=== PATIENT | male | born 1945 | race Two or more races ===

== ENCOUNTER 2019-03-09 00:36 | Emergency (ER) | payer MEDICARE, MEDICAID ==
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
[2019-03-09] MEDS ORDERED: Lisinopril TAB* 10 MG PO ONE (07:05)
--- NOTE | 2019-03-09 07:11 | ED ---
Progress - Progress Note Progress Note: This patient was signed out from Dr. Haynes to Dr. Barnes upon shift change at 07: 00 03/09/19 on a mental health hold pending more information from the patient's son. Discussed case with celeste Britt, who has cleared the patient for discharge. Dx: adjustment disorder. - Consult/PCP Time Called: 01:09 Re-Evaluation - Re-Evaluation First Eval Re-Evaluation Time: 01:07 Comment: Patient was medically cleared for MHE. Course/Dx - Course Course Of Treatment: This patient was signed out from Dr. Haynes to Dr. Barnes upon shift change at 07:00 03/09/19 on a mental health hold pending more information from the patient's son. Discussed case with celeste Britt, who has cleared the patient for discharge. Dx: adjustment disorder. - Diagnoses Provider Diagnoses: Adjustment disorder - Provider Notifications Discussed Care Of Patient With: Juan J Long Time Discussed With Above Provider: 09:06 Instructed by Provider To: Other - Discussed case with celeste Britt, who has cleared the patient for discharge. Dx: adjustment disorder. Discharge - Sign-Out/Discharge Documenting (check all that apply): Patient Departure - DC, Receiving Sign-Out Receiving patient FROM: Oleksandr Haynes Patient Received Moderate/Deep Sedation with Procedure: No - Discharge Plan Condition: Stable Disposition: HOME - Billing Disposition and Condition Condition: STABLE Disposition: Home - Attestation Statements Document Initiated by Scribe: Yes Documenting Scribe: Lawrence Bowens Provider For Whom Scribe is Documenting (Include Credential): Bri Barnes MD Scribe Attestation: ILawrence scribed for Bri Barnes MD on 03/09/19 at 0919. Scribe Documentation Reviewed: Yes Provider Attestation: The documentation as recorded by the Lawrence ahumada accurately reflects the service I personally performed and the decisions made by me, Kamilah Barnes MD Status of Scribe Document: Viewed
[2019-03-09 09:41] VITALS: BP 184/102
== END 2019-03-09 09:40 | disposition home or self-care (01) ==
LOC: ED 00:36
DX: F43.20 Adjustment disorder, unspecified (principal); I10 Essential (primary) hypertension; F17.200 Nicotine dependence, unspecified, uncomplicated
CPT/HCPCS: 99284

== ENCOUNTER 2019-07-15 08:40 | Emergency (ER) | payer MEDICARE, MEDICAID ==
--- OUTSIDE RECORDS SUMMARY | 2019-07-15 08:51 | XMS REPORT | Summary of Care ---
:1945 Author Organization [facility] Address [address] [address] Care Team Providers Name Role Phone Kimberly Juarez MD Primary Care Provider Reason for Visit Auth/Cert Status Reason Specialty Diagnoses / Procedures Referred By Contact Referred To Contact Encounter Details Date Type Department Care Team Description 06/04/2019 Hospital Encounter [facility] REC[facility]ERY Ramos Spann Short Procedure [address] [place] [address] [address] [phone] [place] [address] [phone] Allergies Active Allergy Reactions Severity Noted Date Comments Aspirin 12/07/2008 Rectal Bleed documented as of this encounter (statuses as of 06/05/2019) Medications Medication Sig Dispensed Refills Start Date End Date Status MULTIVITAMINS PO Take by mouth. 0 Active polyethylene glycol Take 17 g by 3 Bottle 1 06/17/2018 Active (MIRALAX) Oral mouth DAILY AT Powder 1400. tramadol (ULTRAM) 50 TAKE 1 TABLET BY 60 Tab 0 09/15/2018 Active MG Oral MOUTH EVERY 8 TabIndications: HOURS NEEDED Other chronic pain FOR PAIN (MAX 3 TABS DAILY) B Complex Vitamins Take by mouth 0 Active (B-COMPLEX/B-12) DAILY. Oral Tab lisinopril Take 1 Tab by 30 Tab 0 11/26/2018 Active (PRINIVIL, ZESTRIL) mouth DAILY. 40 MG Oral Tab Probiotic Product Take by mouth 0 Active (PROBIOTIC ADVANCED DAILY. PO) Nitroglycerin Place 1 Appl per 1 Tube 0 12/04/2018 Active (RECTIV) 0.4 % rectum EVERY Rectal Ointment TWELVE HOURS NEEDED (anal pain). hydrocortisone Place 1 30 Suppository 1 12/04/2018 Active (ANUSOL-HC) 25 MG Suppository per Rectal Suppos rectum EVERY TWELVE HOURS. hydrocortisone 1 Appl by 1 Tube 1 12/08/2018 Active (HYTONE) 2.5 % Apply Topical route externally Cream THREE TIMES DAILY NEEDED (pain). metoprolol TAKE 1 TABLET BY 60 Tab 5 03/10/2019 Active (LOPRESSOR) 100 MG MOUTH TWICE Oral Tab DAILY magnesium citrate Take by mouth. 0 Active Oral Solution Magnesium Hydroxide Take by mouth 0 Active (MILK OF MAGNESIA NEEDED. PO) documented as of this encounter (statuses as of 06/05/2019) Active Problems Problem Noted Date Hyperplastic colonic polyp 10/06/2018 Abdominal mass 03/14/2017 Benign hypertension 03/14/2017 Lower GI bleed 03/14/2017 Right knee pain 08/14/2016 Illiteracy 06/06/2014 B12 deficiency 07/08/2012 Hyperlipidemia 12/07/2008 Osteoarthritis 12/07/2008 Diverticulosis 12/07/2008 Overview: S/P colonoscopy, 2005. Low back pain 12/07/2008 HTN (hypertension) AR (aortic regurgitation) Overview: mild to moderate documented as of this encounter (statuses as of 06/05/2019) Immunizations Name Administration Dates Next Due Influenza (IM) Preservative Free 06/07/2016, 07/01/2013, 08/31/2012, 06/24/2011, 07/26/2009 Influenza Vaccine High Dose 06/01/2019, 06/03/2018, 09/08/2015, 07/06/2014 PNEUMOCOCCAL POLYSACCHARIDE VACCINE 05/03/2011 Pneumococcal Conjugate(13 Valent) 03/22/2015 TDAP Vaccine 03/22/2015 Vitamin B12 (1,000 mcg) 03/04/2019, 11/11/2016, 10/11/2016, 09/09/2016, 08/09/2016, 07/09/2016, 06/07/2016, 05/08/2016, 04/10/2016, 03/11/2016, 02/10/2016, 01/11/2016, 12/11/2015, 11/10/2015, 10/10/2015, 09/08/2015, 08/09/2015, 07/10/2015, 06/09/2015, 04/21/2015, 03/09/2015, 02/07/2015, 01/05/2015, 12/05/2014, 11/07/2014, 10/07/2014, 09/07/2014, 08/08/2014, 07/06/2014, 06/06/2014, 05/09/2014, 03/31/2014, 03/03/2014, 01/31/2014, 12/31/2013, 12/01/2013, 11/01/2013, 10/04/2013, 09/01/2013, 08/02/2013, 07/01/2013, 06/01/2013, 04/30/2013, 03/31/2013, 03/01/2013, 01/29/2013, 12/31/2012, 11/30/2012, 11/02/2012, 10/01/2012, 08/31/2012, 07/30/2012, 07/06/2012, 06/04/2012, 04/30/2012, 01/10/2012 ZOSTER (ZOSTAVAX) VACCINE 04/30/2017 documented as of this encounter Social History Tobacco Use Types Packs/Day Years Used Date Former Smoker Cigarettes, Cigars 1 31 Smokeless Tobacco: Never Used Comments: 1 pack q 2 weeks Alcohol Use Drinks/Week oz/Week Comments Yes 0 Standard drinks or equivalent 0.0 Occasional Sex Assigned at Date Recorded Not on file Job Start Date Occupation Industry Not on file Not on file Not on file Travel History Travel Start Travel End No recent travel history available. documented as of this encounter Last Filed Vital Signs Vital Sign Reading Time Taken Comments Blood Pressure 170/98 06/04/2019 11:10 AM EDT Pulse 71 06/04/2019 11:10 AM EDT Temperature 36.4 06/04/2019 11:15 AM EDT C (97.6 F) Respiratory Rate 12 06/04/2019 10:50 AM EDT Oxygen Saturation 99% 06/04/2019 11:10 AM EDT Inhaled Oxygen Concentration - - Weight 62.7 kg (138 lb 4.8 oz) 06/04/2019 9:04 AM EDT Height 167.6 cm (5' 6") 06/04/2019 9:04 AM EDT Body Mass Index 22.32 06/04/2019 9:04 AM EDT documented in this encounter Plan of Treatment Date Type Specialty Care Team Description 06/07/2019 Nurse/Clinical Support Internal Medicine Name Type Priority Associated Diagnoses Date/Time NON-GYNECOLOGIC CYTOLOGY Lab Routine Pancreatic cyst 06/04/2019 10:28 AM EDT PANCREATIC CYST FLUID Lab STAT Pancreatic cyst 06/04/2019 10:34 AM EDT PANEL CEA, PANCREATIC CYST FLUID Lab STAT Pancreatic cyst 06/04/2019 10:34 AM EDT Name Type Priority Associated Order Schedule Diagnoses EUS Diagnostic/Surgical Routine TOMORROW - GENERAL Procedures USE for 1 Occurrences starting 06/04/2019 until 06/04/2019 NON-GYNECOLOGIC Lab Routine Pancreatic cyst Release Upon CYTOLOGY Ordering for 1 Occurrences starting 06/04/2019, 1 completed PANCREATIC CYST Lab STAT Pancreatic cyst Release Upon FLUID PANEL Ordering for 1 Occurrences starting 06/04/2019 Health Maintenance Due Date Last Done Comments LUNG CANCER SCREENING 2001 ZOSTER IMMUNIZATION SERIES 06/25/2017 04/30/2017 (2 of 3) LIPID DISORDER SCREENING 03/06/2020 03/06/2019, 10/01/2017, 08/12/2016, Additional history exists DEPRESSION SCREENING 03/26/2020 03/26/2019, 03/26/2019 FALL RISK ASSESSMENT 03/26/2020 03/26/2019, 03/26/2019 MEDICARE ANNUAL WELLNESS 03/26/2020 03/26/2019, 03/22/2015, VISIT 03/22/2015, Additional history exists COLONOSCOPY SCREENING 07/31/2022 07/31/2017, 06/19/2017, 10/18/2013, Additional history exists PNEUMOCOCCAL 65+YRS Completed 03/22/2015, 05/03/2011 AAA SCREENING/SURVEILLANCE Completed 03/14/2017, 03/12/2017 HIV SCREENING Completed 03/06/2019 INFLUENZA VACCINE Completed 06/01/2019, 06/03/2018, 06/07/2016, Additional history exists HPV IMMUNIZATION SERIES Aged Out No longer eligible based on patient's age to complete this topic MENINGOCOCCAL VACCINE IMM Aged Out No longer eligible based on patient's age to complete this topic documented as of this encounter Goals Goal Patient Goal Associated Recent Patient-Stated? Author Type Problems Progress Blood Pressure Blood Pressure HTN 170/98 No Larry, < 140/90 (hypertension) (06/04/2019 Kimberly, 11:10 AM EDT) Note: Hypertension Care Plan Based on the patient's clinical history and according to JNC 8 guidelines target blood pressure goal is less than 150/90. Based on the patient's last blood pressure of BP: 146/84 mmHg the patient is at at goal. As your provider, it is important that I advise you regarding: your current medications and help you with any challenges you may face taking your medications as directed (ex. instructions, cost, side effects, and interactions). Important lifestyle changes: dietary sodium reduction your clinical goals and how you can achieve success: exercise plan medication management: adjusted medications as appropriate patient education/self-management tools provided: Yes To successfully manage my Hypertension I will: monitor my blood pressure daily, understanding that my goal is less than 140/ 90 per my healthcare provider's recommendation. I will schedule an appointment with my provider if consistent abnormal readings greater than 160/100. take medications every day as prescribed by my healthcare provider and if unable to take them I will discuss with my provider. monitor for symptoms of chest pain, chest tightness/pressure, irregular heartbeat, persistent dizziness, radiating arm pain, and neck or jaw pain. If any of these symptoms are noticed I will seek medical attention immediately by calling 911 exercise/walk 30 minutes 5 day(s) per week. If I experience chest pain, chest tightness, or shortness of breath, I will seek medical attention immediately. follow a diet rich in fruits, vegetables, and low-fat dairy products with reduced content of saturated & total fat. I will reduce my sodium intake daily. An example is the DASH diet. To obtain more information please refer to the DASH Eating Plan listed in Educational Resources. record my blood pressure results. [employer] is safe and secure way for you to do this in your medical record online. limit alcohol consumption. For men two drinks per day and women one drink per day. if currently smoking, will discuss how to quit smoking with my healthcare provider and work towards quitting. Educational Resources: National Heart, Lung, & Blood [place] http://nhlbi.nih.gov/hbp/index.html The DASH Diet Eating Plan http://www.nhlbi.nih.gov/health/health-topics/ topics/dash/ Academy of Nutrition & DIetetics http://eatright.org National Smoking Cessation Site http://smokefree.gov Blood Pressure < Blood Pressure 170/98 (06/04/2019 No Kimberly Juarez, 150/90 11:10 AM EDT) Note: This is an individualized treatment (blood pressure) goal for Adrián Kumar: Displayed above (on the left) is your goal for blood pressure control. Your most recent blood pressure is also shown above, on the right. You should try to achieve blood pressures that are lower than your goal listed above (on the left). Take all prescribed medications as Self-management Kimberly Read MD directed Note: This is an individualized self-management goal for Adrián Kumar: Please take all prescribed medications as directed. 1. Do not skip doses. If you cannot afford your medications, talk with your doctor. 2. Use a pill reminder system such as a pill box if needed. Your pharmacist can help you with this. 3. Contact your Pharmacy 5 days before your medication runs out. If you cannot take your medications for any reasons, talk with your doctor. 4. Please bring all of your medication bottles and inhalers (or a list of all your medications/inhalers) with you to every visit. Potential barriers to meeting all of your care plan goals will continue to be addressed on an ongoing basis. documented as of this encounter Procedures Procedure Name Priority Date/Time Associated Comments Diagnosis AMYLASE, FLUID STAT 06/04/2019 10:34 Pancreatic cyst Results for AM EDT this procedure are in the results section. UPPER GI ENDOSCOPY Routine 06/04/2019 9:50 Results for REPORT AM EDT this procedure are in the results section. ENDOSCOPY UPPER GI Planned Trip to 06/04/2019 9:49 OR AM EDT ENDOSCOPIC ULTRASOUND Planned Trip to 06/04/2019 9:49 OR AM EDT EUS Routine 06/04/2019 9:41 Results for AM EDT this procedure are in the results section. CBC WITH DIFFERENTIAL STAT 06/04/2019 9:13 Results for AM EDT this procedure are in the results section. PROTHROMBIN TIME STAT 06/04/2019 9:13 Results for AM EDT this procedure are in the results section. PARTIAL THROMBOPLASTIN STAT 06/04/2019 9:13 Results for TIME AM EDT this procedure are in the results section. US TRANSESOPHAGEAL Routine 06/04/2019 8:41 Results for ENDOSCOPIC AM EDT this procedure are in the results section. documented in this encounter Results AMYLASE, FLUID (06/04/2019 10:34 AM EDT) Fluid Amylase 66 No Established [facility] Comment: Reference Range [facility] Available U/L This test was developed and its performance characteristics determined by [facility] who is solely responsible for the content and accuracy. The precision and accuracy has been determined to be equivalent to the accuracy and precision of the FDA approved serum and plasma testing. This test has not been cleared or approved by the US Food and Drug Administration. The FDA barber s not require this test to go through premarket FDA review. This test is used for clinical purposes. It should not be regarded as investigational or for research. This laboratory is certified under the Clinical Laboratory Improvement Amendments (CLIA) as qualified to perform high complexity clinical laboratory testing. Testing Methodology: Two-point rate Specimen Body fluid, unsp Narrative Performed At No Normal Ranges Available [facility] Provider must interpret results based on clinical situation. Performing Organization Address City/State/Zipcode Phone Number [facility] [address] [facility] [place] [address] [address] UPPER GI ENDOSCOPY REPORT (06/04/2019 9:50 AM EDT) Upper GI endoscopy [facility]ATION __ Patient Name: Adrián Kumar Procedure Date: 06/04/2019 9:50 AM Date of : 1945 Admit Type: Outpatient Age: 74 Room: OR Gender: Male Note Status: Finalized Attending MD: RAMOS SPANN JR, MD Instrument Name: [id number] GIF H180 __ Procedure: Upper GI endoscopy Indications: Epigastric abdominal pain Providers: RAMOS SPANN JR, MD, Inocencia Mccollum RN (Nurse), Columba Santos RN (Nurse) Referring MD: KIMBERLY JUAREZ MD (Referring MD) Medicines: See the Anesthesia note for documentation of the administered medications Complications: No immediate complications. __ Procedure: The patient's current medications and allergies were reviewed and recorded in the nurses notes. The patient was made aware of the risk of the procedure which can include: bleeding, infection, perforation, an adverse reaction to sedation, and a risk of missed lesions, among others. The patient appeared to understand. An opportunity for questions was provided, and an informed consent form was signed. The scope was passed under direct vision. Throughout the procedure, the patient's blood pressure, pulse EKG, and oxygen saturations were monitored continuously. The Endoscope was introduced through the mouth, and advanced to the second part of duodenum. The Z-line was located at: The upper GI endoscopy was accomplished without difficulty. The patient tolerated the procedure well. Findings: The esophagus was normal. The stomach was normal. The examined duodenum was normal. Impression: - Normal esophagus. - Normal stomach. - Normal examined duodenum. - No specimens collected. Recommendation: - Continue present medications. - Perform an upper endoscopic ultrasound (UEUS) today. - Discharge patient to home. Procedure Code(s): --- Professional --- 54736, 51, Esophagogastroduodenoscopy, flexible, transoral; diagnostic, including collection of specimen(s) by brushing or washing, when performed (separate procedure) Diagnosis Code(s): --- Professional --- R10.13, Epigastric pain CPT copyright 2017 [place] [employer]. All rights reserved. The codes documented in this report are preliminary and upon doctor of chiropractic review may be revised to meet current compliance requirements. RAMOS SPANN JR, MD 06/04/2019 10:09:28 AM This report has been signed electronically. Number of Addenda: 0 Note Initiated On: 06/04/2019 9:50 AM Specimen Performing Organization Address City/State/Zipcode Phone Number PROVRAMON EUS (06/04/2019 9:41 AM EDT) Pathologist [facility]ATION __ Patient Name: Adrián Kumar Procedure Date: 06/04/2019 9:41 AM Date of : 1945 Admit Type: Outpatient Age: 74 Room: 16 Gender: Male Note Status: Finalized Attending MD: RAMOS SPANN JR, MD Instrument Name: 1897 UE 160-AL5 EUS RADIAL,0748 UC 140P-AL5 LINEAR __ Procedure: Upper EUS Indications: Pancreatic cyst Providers: RAMOS SPANN JR, MD, Inocencia Mccollum RN (Nurse), Columba Santos RN (Nurse) Referring MD: KIMBERLY JUAREZ MD (Referring MD) Medicines: See the Anesthesia note for documentation of the administered medications Complications: No immediate complications. __ Procedure: After obtaining informed consent, the endoscope was passed under direct vision. Throughout the procedure, the patient's blood pressure, pulse, and oxygen saturations were monitored continuously. The Endosonoscope was introduced through the mouth, and advanced to the second part of duodenum. The Endosonoscope was introduced through the mouth, and advanced to the second part of duodenum. The upper EUS was accomplished without difficulty. The patient tolerated the procedure well. Findings: ENDOSONOGRAPHIC FINDING: : An anechoic lesion suggestive of a cyst was identified in the pancreatic tail. The lesion measured 21 mm by 23 mm in maximal cross-sectional diameter. There was a single compartment without septae. The outer wall of the lesion was not seen. There was no associated mass. There was no internal debris within the fluid-filled cavity. Diagnostic needle aspiration for fluid was performed. Color Doppler imaging was utilized prior to needle puncture to confirm a lack of significant vascular structures within the needle path. One pass was made with the 22 gauge needle using a transgastric approach. A stylet was used. The amount of fluid collected was 5 mL. The fluid was clear, yellow and thin. Sample(s) were sent for amylase concentration, cytology and CEA. There was no sign of significant endosonographic abnormality in the pancreatic head and pancreatic body. No masses. There was no sign of significant endosonographic abnormality in the left lobe of the liver and in the right lobe of the liver. There was no sign of significant endosonographic abnormality in the common bile duct and in the gallbladder body. The maximum diameter of the ducts were 5 mm. No stones were identified. No lymphadenopathy seen. Impression: - A cystic lesion was seen in the pancreatic tail. Fine needle aspiration for fluid performed. - There was no sign of significant pathology in the pancreatic head and pancreatic body. - There was no evidence of significant pathology in the left lobe of the liver and in the right lobe of the liver. - There was no sign of significant pathology in the common bile duct and in the gallbladder body. Recommendation: - Continue present medications. - Await cytology results and await tumor markers. - Perform CT scan (computed tomography) of the abdomen with contrast in 1 year. - Discharge patient to home. Procedure Code(s): --- Professional --- 72911, Esophagogastroduodenoscopy, flexible, transoral; with transendoscopic ultrasound-guided intramural or transmural fine needle aspiration/biopsy(s) (includes endoscopic ultrasound examination of the esophagus, stomach, and either the duodenum or a surgically altered stomach where the jejunum is examined distal to the anastomosis) Diagnosis Code(s): --- Professional --- K86.2, Cyst of pancreas CPT copyright 2017 [place] [employer]. All rights reserved. The codes documented in this report are preliminary and upon doctor of chiropractic review may be revised to meet current compliance requirements. RAMOS SPANN JR, MD 06/04/2019 10:33:37 AM This report has been signed electronically. Number of Addenda: 0 Note Initiated On: 06/04/2019 9:41 AM Specimen Performing Organization Address [facility] Phone Number [facility] PARTIAL THROMBOPLASTIN TIME (06/04/2019 9:13 AM EDT) PTT 31.0 22.8 - 34.7 SEC [facility] Specimen Blood Performing Organization Address [facility] Phone Number [facility] [address] [place] [address] PROTHROMBIN TIME (06/04/2019 9:13 AM EDT) INR 1.17 (H) 0.79 - 1.15 [facility] Comment: Ratio [facility] INR Therapeutic Range: 2.0 - 3.5 Protime 14.7 (H) 11.4 - 14.3 sec [facility] Specimen Blood Performing Organization Address [facility] Phone Number [facility] [address] [place] [address] [phone] CBC WITH DIFFERENTIAL (06/04/2019 9:13 AM EDT) WBC Count 2.41 (L) 4.23 - 9.07 K/uL [facility] RBC Count 4.00 (L) 4.30 - 5.89 M/UL [facility] Hemoglobin 13.8 13.7 - 17.5 g/dL [facility] Hematocrit 39.5 (L) 40.1 - 51.0 % [facility] MCV 98.8 (H) 79.0 - 92.2 FL [facility] MCH 34.5 (H) 25.7 - 32.2 PG [facility] MCHC 34.9 32.3 - 36.5 g/dL [facility] Platelet Count 216 163 - 337 K/uL [facility] MPV 9.8 9.4 - 12.4 FL [facility] RDW 13.8 11.6 - 14.4 % [facility] Neutrophil % 45.7 34.0 - 67.9 % [facility] Lymphocyte % 30.7 21.8 - 53.1 % [facility] Monocyte % 18.7 (H) 5.3 - 12.2 % [facility] Eosinophil % 3.7 0.8 - 7.0 % [facility] Basophil % 1.2 0.2 - 1.2 % [facility] nRBC % 0.0 0.0 - 0.2 % [facility] Neutrophil # 1.10 (L) 1.78 - 5.38 K/UL [facility] Lymphocyte # 0.74 (L) 1.32 - 3.57 K/UL [facility] Monocyte # 0.45 0.30 - 0.82 K/UL [facility] Eosinophil # 0.09 0.04 - 0.54 K/UL [facility] Basophil # 0.03 0.01 - 0.08 K/UL [facility] Immature Gran % 0.0 0.0 - 0.4 % [facility] Immature Gran # 0.00 0.00 - 0.03 K/uL [facility] NRBC # 0.00 0.00 - 0.12 K/uL [facility] Specimen Blood Performing Organization Address City/[facility]/Zipcode Phone Number [facility] [address] [place] [address] [phone] TRANSESOPHAGEAL ENDOSCOPIC (06/04/2019 8:41 AM EDT) Specimen Narrative Performed At Please see performing physicians notes for results of this exam. [facility] [address] POCT Performing Organization Address [facility] Cent[facility]ode Phone Number [facility] [address] [address] documented in this encounter Visit Diagnoses Diagnosis Pancreatic cyst Cyst and pseudocyst of pancreas documented in this encounter Administered Medications Medication Order MAR Action Action Date Dose Rate Site diphenhydrAMINE (BENADRYL) injection 12.5 mg 12.5 mg, Intravenous Push, Q4 HRS PRN, Starting Fri06/04/19 at 1041, Until Fri06/04/19 at 1329, Pruritis/Itching - 2nd line if no relief 4 hours after administration of 1st line agent, May give if Nubain ineffective, 4 Recovery FentaNYL (PF) (SUBLIMAZE) injection (PF) 25 mcg 25 mcg, Intravenous Push, PRU Q5MIN PRN, Starting Fri06/04/19 at 1041, Until Fri06/04/19 at 1329, Mild Pain (pain scale 1-3) - IV - 1st line - if immediate effect required or patient cannot tolerate PO, 4 Recovery FentaNYL (PF) (SUBLIMAZE) injection (PF) 50 mcg 50 mcg, Intravenous Push, PRU Q5MIN PRN, Starting Fri06/04/19 at 1041, Until Fri06/04/19 at 1329, Moderate Pain (pain scale 4-6) - IV - 1st line - if immediate effect required or patient cannot tolerate PO, Severe Pain (pain scale 7-10) - IV - 1st line - if immediate effect required or patient cannot tolerate PO, 4 Recovery haloperidol (HALDOL) injection 0.65 mg 0.65 mg, Intravenous Push, PRU X1 PRN, 1 dose, Starting Fri06/04/19 at 1041, Until Fri06/04/19 at 1329, Nausea/Vomiting - IV - 3rd line - if immediate effect required or patient cannot tolerate PO and no relief 1 hour after administration of 2nd line agent, 4 Recovery normal saline IV New Bag 06/04/2019 9:59 AM EDT Intravenous, at 15 mL/hr, CONTINUOUS, Starting Fri06/04/19 at 0850, Until Fri06/04/19 at 1329 ondansetron (ZOFRAN) injection 4 mg 4 mg, Intravenous Push, PRU X1 PRN, 1 dose, Starting Fri06/04/19 at 1041, Until Fri06/04/19 at 1329, Nausea/Vomiting - IV - 1st line - If immediate effect required or patient cannot tolerate PO, 4 Recovery prochlorperazine (COMPAZINE) injection 2.5 mg 2.5 mg, Intravenous Push, PRU PRN, 2 doses, Starting Fri06/04/19 at 1041, Until Fri06/04/19 at 1329, Nausea/Vomiting - IV - 2nd line - if immediate effect required or patient cannot tolerate PO and no relief 1 hours after administration of 1st line agent, 4 Recovery documented in this encounter Insurance Payer Benefit Plan / Subscriber ID Effective Dates Phone Address Type Group AETNA MEDICARE AETNA MEDICARE xxxxxxxx 2019-[place] [employer] [place] [place]([id number] ) [place] xxxxxxxx Effective for Medicaid [place] all dates Guarantor Name Account Type Relation to Date of Phone Billing Address Patient Charlie Personal/Famil 1945 [address] Kumar (Home) [address] [phone] [place], [place] (Work) [address] documented as of this encounter Advance Directives Type Date 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 yes Order discussed with: Patient I discussed all options and patient/surrogate requested and agreed to: Full Code
--- OUTSIDE RECORDS SUMMARY | 2019-07-15 08:51 | XMS REPORT | Summary of Care ---
:1945 Author Organization [facility] Address [address] [address] Care Team Providers Name Role Phone RobertlauraKimberly Primary Care Provider Reason for Visit Auth/Cert Status Reason Specialty Diagnoses / Procedures Referred By Contact Referred To Contact Encounter Details Date Type Department Care Team Description 07/01/2019 Hospital Encounter [facility] Ramos Rojas Short Procedure [address] [place] [address] [address] [phone] [place] [address] [phone] Allergies Active Allergy Reactions Severity Noted Date Comments Aspirin 12/07/2008 Rectal Bleed documented as of this encounter (statuses as of 07/02/2019) Medications Medication Sig Dispensed Refills Start Date [...] 0 Active (MILK OF MAGNESIA NEEDED. PO) Sennosides (SENNA) Take 1 Cap by 0 Active 8.6 MG Oral Cap mouth EVERY BEDTIME NEEDED (constipation). Hydrocortisone Place 1 Strip 30 Tube 0 06/15/2019 Active Lui-Pramoxine 2.5-1 per rectum TWO % Rectal Cream TIMES DAILY NEEDED (rectal pain). documented as of this encounter (statuses as of 07/02/2019) Active Problems Problem Noted Date Hyperplastic colonic polyp 10/06/2018 Abdominal mass 03/14/2017 Benign hypertension 03/14/2017 Lower GI bleed 03/14/2017 Right knee pain 08/14/2016 Illiteracy 06/06/2014 B12 deficiency 07/08/2012 Hyperlipidemia 12/07/2008 Osteoarthritis 12/07/2008 Diverticulosis 12/07/2008 Overview: S/P colonoscopy, 2005. Low back pain 12/07/2008 HTN (hypertension) AR (aortic regurgitation) Overview: mild to moderate documented as of this encounter (statuses as of 07/02/2019) Immunizations Name Administration Dates Next Due Influenza [...] Sign Reading Time Taken Comments Blood Pressure 161/84 07/01/2019 11:00 AM EDT Pulse 66 07/01/2019 11:00 AM EDT Temperature 36.9 07/01/2019 10:21 AM EDT C (98.4 F) Respiratory Rate 18 07/01/2019 11:00 AM EDT Oxygen Saturation 98% 07/01/2019 11:00 AM EDT Inhaled Oxygen Concentration - - Weight 59.9 kg (132 lb) 07/01/2019 8:55 AM EDT Height 167.6 cm (5' 6") 07/01/2019 8:55 AM EDT Body Mass Index 21.31 07/01/2019 8:55 AM EDT documented in this encounter Plan of Treatment Date Type Specialty Care Team Description 07/06/2019 Office Visit Gastroenterology Columba Tirado, DEMOGRAPHER [address] [place] [address] [phone] Name Type Priority Associated Diagnoses Order Schedule COLONOSCOPY Diagnostic/Surgical Routine TOMORROW - GENERAL USE Procedures for 1 Occurrences starting 07/01/2019 until 07/01/2019 Health Maintenance Due Date Last Done Comments LUNG CANCER SCREENING 2001 ZOSTER IMMUNIZATION SERIES 06/25/2017 04/30/2017 (2 of 3) LIPID DISORDER SCREENING 03/06/2020 03/06/2019, 10/01/2017, 08/12/2016, Additional history exists DEPRESSION SCREENING 03/26/2020 03/26/2019, 03/26/2019 FALL RISK ASSESSMENT 03/26/2020 03/26/2019, 03/26/2019 MEDICARE ANNUAL WELLNESS 03/26/2020 03/26/2019, 03/22/2015, VISIT 03/22/2015, Additional history exists COLONOSCOPY SCREENING 07/01/2024 07/01/2019, 07/31/2017, 06/19/2017, Additional history exists PNEUMOCOCCAL 65+YRS Completed 03/22/2015, 05/03/2011 AAA SCREENING/SURVEILLANCE Completed 08/13/2018, 07/04/2018, 03/14/2017, Additional history exists HIV SCREENING Completed 03/06/2019 INFLUENZA VACCINE Completed [...] Problems Progress Blood Pressure Blood Pressure HTN 161/84 No Larry, < 140/90 (hypertension) (07/01/2019 Kimberly, 11:00 AM EDT) Note: Hypertension Care Plan Based [...] Educational Resources: National Heart, Lung, & Blood [place] http://nhlbi.nih.gov/hbp/index.html The DASH Diet Eating Plan http://www.nhlbi.nih.gov/health/health-topics/ topics/dash/ Academy of Nutrition & DIetetics http://eatright.org National Smoking Cessation Site http://smokefree.gov Blood Pressure < Blood Pressure 161/84 (07/01/2019 No Kimberly Juarez, 150/90 11:00 AM EDT) Note: This is an individualized [...] Procedure Name Priority Date/Time Associated Comments Diagnosis SIGN PERMIT 07/01/2019 12:00 PM EDT COLONOSCOPY REPORT Routine 07/01/2019 9:27 Results for this AM EDT procedure are in the results section. COLONOSCOPY Planned Trip to 07/01/2019 9:21 OR AM EDT documented in this encounter Results COLONOSCOPY REPORT (07/01/2019 9:27 AM EDT) GI Procedure [facility] PROVATION __ Patient Name: Adrián Kumar Procedure Date: 07/01/2019 9:27 AM Date of : 1945 Admit Type: Outpatient Age: 74 Room: OR Gender: Male Note Status: Finalized Attending MD: RAMOS ROJAS JR, MD Instrument Name: [id number] __ Procedure: Colonoscopy Indications: Change in bowel habits Providers: RAMOS ROJAS JR, MD, Svitlana Hamilton RN (Nurse) Referring MD: KIMBERLY JUAREZ MD [...] and oxygen saturations were monitored continuously. The Colonoscope was introduced through the anus and advanced to the cecum, identified by appendiceal orifice and ileocecal valve. The colonoscopy was performed without difficulty. The patient tolerated the procedure well. The quality of the bowel preparation was poor. Findings: Multiple small and large-mouthed diverticula were found in the sigmoid colon, descending colon, transverse colon and ascending colon. A large amount of semi-liquid stool was found in the entire colon, interfering with visualization. Lavage of the area was performed using copious amounts, resulting in clearance with fair visualization. The terminal ileum appeared normal. The exam was otherwise without abnormality. Impression: - Preparation of the colon was poor. - Diverticulosis in the sigmoid colon, in the descending colon, in the transverse colon and in the ascending colon. - Stool in the entire examined colon. - The examined portion of the ileum was normal. - The examination was otherwise normal. - No specimens collected. Recommendation: - Continue present medications. - Repeat colonoscopy PRN for surveillance. - Return sooner if symptoms occur. Polyps can be missed. - Discharge patient to home. Procedure Code(s): --- Professional --- 87931, Colonoscopy, flexible; diagnostic, including collection of specimen(s) by brushing or washing, when performed (separate procedure) Diagnosis Code(s): --- Professional --- K57.30, Diverticulosis of large intestine without perforation or abscess without bleeding CPT copyright 2017 [employer]. All rights reserved. The codes documented in this report are preliminary and upon prepress proofer review may be revised to meet current compliance requirements. RAMOS ROJAS JR, MD 07/01/2019 10:17:59 AM This report has been signed electronically. Number of Addenda: 0 Note Initiated On: 07/01/2019 9:27 AM CC Letter to: KIMBERLY JUAREZ MD (CC) Specimen Performing Organization Address [facility] Phone Number PROVATION documented in this encounter Administered Medications Medication Order MAR Action Action Date Dose Rate Site diphenhydrAMINE (BENADRYL) injection 12.5 mg 12.5 mg, Intravenous Push, Q4 HRS PRN, Starting Stacey 10 at 1028, Until Stacey 07/01/19 at 1426, Pruritis/Itching - 2nd line if no relief 4 hours after administration of 1st line agent, May give if Nubain ineffective, 4 Recovery FentaNYL (PF) (SUBLIMAZE) injection (PF) 25 mcg 25 mcg, Intravenous Push, PRU Q5MIN PRN, Starting Stacey 10 at 1028, Until Stacey 1019 at 1426, Mild Pain (pain scale 1-3) - IV - 1st line - if immediate effect required or patient cannot tolerate PO, 4 Recovery FentaNYL (PF) (SUBLIMAZE) injection (PF) 50 mcg 50 mcg, Intravenous Push, PRU Q5MIN PRN, Starting Stacey 1019 at 1028, Until Stacey 10 at 1426, Moderate Pain (pain scale 4-6) - IV - 1st line - if immediate effect required or patient cannot tolerate PO, Severe Pain (pain scale 7-10) - IV - 1st line - if immediate effect required or patient cannot tolerate PO, 4 Recovery haloperidol (HALDOL) injection 0.65 mg 0.65 mg, Intravenous Push, PRU X1 PRN, 1 dose, Starting Stacey 07/01/19 at 1028, Until Stacey 07/01/19 at 1426, Nausea/Vomiting - IV - 3rd line - if immediate effect required or patient cannot tolerate PO and no relief 1 hour after administration of 2nd line agent, 4 Recovery normal saline IV New Bag 07/01/2019 9:56 AM EDT Intravenous, at 25 mL/hr, CONTINUOUS, Starting Fri07/02/19 at 0600, Until Stacey 07/01/19 at 1426 New Bag 07/01/2019 9:05 AM EDT ondansetron (ZOFRAN) injection 4 mg 4 mg, Intravenous Push, PRU X1 PRN, 1 dose, Starting Stacey 07/01/19 at 1028, Until Stacey 07/01/19 at 1426, Nausea/Vomiting - IV - 1st line - If immediate effect required or patient cannot tolerate PO, 4 Recovery prochlorperazine (COMPAZINE) injection 2.5 mg 2.5 mg, Intravenous Push, PRU PRN, 2 doses, Starting Stacey 07/01/19 at 1028, Until Stacey 07/01/19 at 1426, Nausea/Vomiting - IV - 2nd line - if immediate effect required or patient cannot tolerate PO and no relief 1 hours after administration of 1st line agent, 4 Recovery documented in this encounter Insurance Payer Benefit Plan / Subscriber ID Effective Dates Phone Address Type Group AETNA MEDICARE AETNA MEDICARE xxxxxxxx 2019-[facility] Aetna ADVANTAGE [facility][id number] ) MEDICAID [facility] xxxxxxxx Effective for Medicaid [place] MEDICAID all dates Guarantor Name Account Type Relation to Date of Phone Billing Address Patient Charlie Personal/Famil 1945 [address] Kumar (Home) [address] [phone] [place], [place] (Work) [address] documented as of this encounter Advance Directives Type Date 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 yes Order discussed with: Patient I discussed all options and patient/surrogate requested and agreed to: Full Code
--- OUTSIDE RECORDS SUMMARY | 2019-07-15 08:51 | XMS REPORT | Summary of Care ---
:1945 Author Organization [facility] Address [address] [place] [address] Care Team Providers Name Role Phone Kimberly Juarez MD Primary Care Provider Reason for Referral Refer to Department Only (Routine) Status Reason Specialty Diagnoses / Referred By Referred To Procedures Contact Contact Pending Review Gastroenterology Diagnoses Abnormal MRI of abdomen Beckie Tirado NP Gastroenterolog [address] [place] [address] [address] Phone: square [phone] [place] Fax: [phone] Scheduling Instructions Is the patient on cpap machine?No Is the patient on oxygen?No BP 156/82 | Pulse 66 | Temp 97 F (36.1 C) | Ht 5' 6" (1.676 m) | Wt 132 lb (59.9 kg) | BMI 21.31 kg/m BMI Readings from Last 4 Encounters: 05/25/19 : 21.31 kg/m 03/26/19 : 20.34 kg/m 03/04/19 : 20.52 kg/m 02/15/19 : 20.80 kg/m Controlled Substance Medications: tramadol Anticoagulant Medications: Psychiatric/Antianxiety Medications: Antiretroviral Medications: Reason for Visit Reason Comments ER F/U Follow-up to recent treatment at [facility] [place] [place] ER for constipation. Encounter Details Date Type Department Care Team Description 05/25/2019 Office Visit Shena Tirado, Abnormal MRI of abdomen ( Primary Dx); Gastroenterology/Hepa Columba Bundy NP Rectal pain; tology [address] Diarrhea, unspecified type [address] [facility] [place], [place] [address] [place] [address] [phone] Allergies Active Allergy Reactions Severity Noted Date Comments Aspirin 12/07/2008 Rectal Bleed documented as of this encounter (statuses as of 05/25/2019) Medications Medication Sig Dispensed Refills Start Date [...] ZESTRIL) mouth DAILY. 40 MG Oral Tab Simethicone (GAS Take by mouth. 0 Active RELIEF [address] PO) Probiotic Product Take by mouth 0 Active [...] as of this encounter (statuses as of 05/25/2019) Active Problems Problem Noted Date Hyperplastic colonic polyp 10/06/2018 Abdominal mass 03/14/2017 Benign hypertension 03/14/2017 Lower GI bleed 03/14/2017 Right knee pain 08/14/2016 Illiteracy 06/06/2014 B12 deficiency 07/08/2012 Hyperlipidemia 12/07/2008 Osteoarthritis 12/07/2008 Diverticulosis 12/07/2008 Overview: S/P colonoscopy, 2006. Low back pain 12/07/2008 HTN (hypertension) AR (aortic regurgitation) Overview: mild to moderate documented as of this encounter (statuses as of 05/25/2019) Immunizations Name Administration Dates Next Due Influenza (IM) Preservative Free 06/07/2016, 07/01/2013, 08/31/2012, 06/24/2011, 07/26/2009 Influenza Vaccine High Dose 06/03/2018, 09/08/2015, 07/06/2014 PNEUMOCOCCAL POLYSACCHARIDE VACCINE 05/03/2011 [...] Sign Reading Time Taken Comments Blood Pressure 156/82 05/25/2019 8:25 AM EDT Pulse 66 05/25/2019 8:25 AM EDT Temperature 36.1 05/25/2019 8:25 AM EDT C (97 F) Respiratory Rate - - Oxygen Saturation - - Inhaled Oxygen Concentration - - Weight 59.9 kg (132 lb) 05/25/2019 8:25 AM EDT Height 167.6 cm (5' 6") 05/25/2019 8:25 AM EDT Body Mass Index 21.31 05/25/2019 8:25 AM EDT documented in this encounter Patient Instructions Patient InstructionsColumba Tirado NP - 05/25/2019 8:20 AM EDT1. Will plan on endoscopic ultrasound in [place] 2. Schedule the colonoscopy in [place] 3. Stop taking all of the stool softeners, and start incorporating more soluble fiber like oatmeal and bread to help solidify your stools 4. Follow up after the above Thank you for choosing the [facility] for your needs today! -Columba Tirado N.PHyacinth , Please call if you need to cancel or change your appt. time. Thank you for choosing [facility] for your health care needs, and for consulting with [facility] today. You may receive a survey following this visit, or after an upcoming hospital stay. As easy as it is to feel overloaded with surveys, we are required to send them out randomly and they do provide important feedback so that we may serve your needs in the best way. Please do take the few minutes required to complete the survey if you receive one. We get them too, after seeing the doctor, and they only take a few minutes to complete. documented in this encounter Progress Notes Columba Tirado NP - 05/25/2019 8:20 AM EDT PATIENT: Adrián Kumar : 1945 DATE OF SERVICE: 05/25/2019 REFERRING PRACTITIONER: Kimberly Juarez PRIMARY CARE PROVIDER: Kimberly Juarez CHIEF COMPLAINT: Chief Complaint Patient presents with ER F/U Follow-up to recent treatment at [facility] [place] [place] [facility] for constipation. Subjective HISTORY OF PRESENT ILLNESS: Adrián Kumar is a 74-y.o. male who presents for follow-up of recent ER visit.He is accompanied by his daughter today whom helps with communication and interpretation. He presented to the ER with rectal pain and GI upset, has CT and MRI of abdomen which was positive for pancreatic lesion. MR abdomen dated 05/19/19 performed at [facility] [place] [place] " 2.8cm cyst in the tail of the pancreas remains equivocal." CBC dated 05/20/19 shows neutropenia at 2.9 WBC. Previously seen in the clinic for history of constipation and rectal pain. Has not yet completed his colonoscopy which was ordered in January. He continues to complain of rectal pressure, sensation of something stuck in his rectum. He continues to use laxative in an attempt to evacuate his bowels. He is eating only vegetables and broth, reports other things do not seem appetitizing and at times upset his stomach. His weight is stable. Denies abdominal pain, heartburn, dysphagia, fatigue, nausea, vomiting, melena, hamatemesis, hematochezia, jaundice, fevers, chills, night sweats, weight loss, easy bruising, chest pain, shortness of breath, dysuria, hematuria, pyuria, joint pains, acholic stools, dark urine or systemic pruritis. Current Outpatient Medications Medication Sig B Complex Vitamins (B-COMPLEX/B-12) Oral Tab Take by mouth DAILY. hydrocortisone (ANUSOL-HC) [address] 1 Suppository per rectum EVERY TWELVE HOURS. hydrocortisone (HYTONE) 2.5 % Apply externally Cream 1 Appl by Topical route THREE TIMES DAILY NEEDED (pain). lisinopril (PRINIVIL, ZESTRIL) 40 MG Oral Tab Take 1 Tab by mouth DAILY. magnesium citrate Oral Solution Take by mouth. Magnesium Hydroxide (MILK OF MAGNESIA PO) Take by mouth NEEDED. metoprolol (LOPRESSOR) 100 MG Oral Tab TAKE 1 TABLET BY MOUTH TWICE DAILY MULTIVITAMINS PO Take by mouth. Nitroglycerin (RECTIV) 0.4 % Rectal Ointment Place 1 Appl per rectum EVERY TWELVE HOURS NEEDED (anal pain). polyethylene glycol (MIRALAX) Oral Powder Take 17 g by mouth DAILY AT 1400. Probiotic Product (PROBIOTIC ADVANCED PO) Take by mouth DAILY. Simethicone (GAS RELIEF [address] PO) Take by mouth. tramadol (ULTRAM) 50 MG Oral Tab TAKE 1 TABLET BY MOUTH EVERY 8 HOURS NEEDED FOR PAIN (MAX 3 TABS DAILY) No current facility-administered medications for this visit. Allergies Allergen Reactions Aspirin Rectal Bleed REVIEW OF SYSTEMS: All remaining review of systems was negative except for as noted in the history of present illness/subjective. Objective PHYSICAL EXAMINATION: VITALS: BP 156/82 | Pulse 66 | Temp 97 F (36.1 C) | Ht 5' 6" (1.676 m) | Wt 132 lb (59.9 kg) | BMI 21.31 kg/m Body mass index is 21.31 kg/m . GENERAL: alert, oriented, no acute distress. HEENT: No scleral icterus, MMM Psych: Affect normal Neck: no lymphadenopathy LUNGS: clear to auscultation bilaterally. HEART: regular rhythm, no murmurs, no gallops, no rubs. ABDOMEN: general exam: soft, non-tender, non-distended, without masses or organomegaly, normal active bowel sounds, Perea's sign negative. Extrmities: no edema Skin: clear Neuro: gait normal, a&o x 3 RECTAL: exam deferred. IMPRESSION: ICD-9-CM ICD-10-CM 1. Abnormal MRI of abdomen 793.6 R93.5 EUS REFER TO GI AMYLASE LIPASE COMPREHENSIVE METABOLIC PANEL CBC WITH DIFFERENTIAL 2. Rectal pain 569.42 K62.89 3. Diarrhea, unspecified type 787.91 R19.7 Plan PLAN: Patient Instructions 1. Will plan on endoscopic ultrasound in [place] 2. Schedule the colonoscopy in [place] 3. Stop taking all of the stool softeners, and start incorporating more soluble fiber like oatmeal and bread to help solidify your stools 4. Follow up after the above Thank you for choosing the [facility] for your needs today! -Columba Tirado N.P. , Please call if you need to cancel or change your appt. time. Thank you for choosing [facility] for your health care needs, and for consulting with [facility] today. You may receive a survey following this visit, or after an upcoming hospital stay. As easy as it is to feel overloaded with surveys, we are required to send them out randomly and they do provide important feedback so that we may serve your needs in the best way. Please do take the few minutes required to complete the survey if you receive one. We get them too, after seeing the doctor, and they only take a few minutes to complete. Author: Columba Tirado NP 05/25/2019 10:49 documented in this encounter Plan of Treatment Date Type Specialty Care Team Description 06/01/2019 Office Visit Family Practice Kimberly Juarez MD [address] [place] [address] [phone] 06/07/2019 Nurse/Clinical Support Internal Medicine Name Type Priority Associated Order Schedule Diagnoses EUS Diagnostic/Surgical Routine Abnormal MRI of Ordered: Procedures abdomen 05/25/2019 AMYLASE Lab Routine Abnormal MRI of Expected: abdomen 05/25/2019 (Approximate), Expires: 05/25/2020 LIPASE Lab Routine Abnormal MRI of Expected: abdomen 05/25/2019 (Approximate), Expires: 05/25/2020 COMPREHENSIVE Lab Routine Abnormal MRI of Expected: METABOLIC PANEL abdomen 05/25/2019 (Approximate), Expires: 05/25/2020 CBC WITH DIFFERENTIAL Lab Routine Abnormal MRI of Expected: abdomen 05/25/2019 (Approximate), Expires: 05/25/2020 Name Type Priority Associated Diagnoses Order Schedule REFER TO GI Referral Routine Abnormal MRI of abdomen Expected: 05/25/2019, Expires: 05/25/2020 Health Maintenance Due Date Last Done Comments LUNG CANCER SCREENING 2001 ZOSTER IMMUNIZATION SERIES 06/25/2017 04/30/2017 (2 of 3) INFLUENZA VACCINE (#1) 2019 06/03/2018, 06/07/2016, 09/08/2015, Additional history exists LIPID DISORDER SCREENING 03/06/2020 03/06/2019, 10/01/2017, 08/12/2016, Additional history exists DEPRESSION SCREENING 03/26/2020 03/26/2019, 03/26/2019 FALL RISK ASSESSMENT 03/26/2020 03/26/2019, 03/26/2019 MEDICARE ANNUAL WELLNESS 03/26/2020 03/26/2019, 03/22/2015, VISIT 03/22/2015, Additional history exists COLONOSCOPY SCREENING 07/31/2022 07/31/2017, 06/19/2017, 10/18/2013, Additional history exists PNEUMOCOCCAL 65+YRS Completed 03/22/2015, 05/03/2011 AAA SCREENING/SURVEILLANCE Completed 03/14/2017, 03/12/2017 HIV SCREENING Completed 03/06/2019 HPV IMMUNIZATION SERIES Aged Out No longer eligible based on patient's age to complete this topic MENINGOCOCCAL VACCINE IMM Aged Out No longer eligible based on patient's age to complete this topic documented as of this encounter Goals Goal Patient Goal Associated Recent Patient-Stated? Author Type Problems Progress Blood Pressure Blood Pressure HTN 156/82 No Galayla, < 140/90 (hypertension) (05/25/2019 Kimberly, 8:25 AM EDT) Note: Hypertension Care Plan Based [...] Educational Resources: National Heart, Lung, & Blood [place] http://nhlbi.nih.gov/hbp/index.html The DASH Diet Eating Plan http://www.nhlbi.nih.gov/health/health-topics/ topics/dash/ Academy of Nutrition & DIetetics http://eatright.org National Smoking Cessation Site http://smokefree.gov Blood Pressure < Blood Pressure 156/82 (05/25/2019 No Kimberly Juarez, 150/90 8:25 AM EDT) Note: This is an individualized [...] ongoing basis. documented as of this encounter Results Not on filedocumented in this encounter Visit Diagnoses Diagnosis Abnormal MRI of abdomen - Primary Nonspecific (abnormal) findings on radiological and other examination of abdominal area, including retroperitoneum Rectal pain Anal or rectal pain Diarrhea, unspecified type documented in this encounter Insurance Payer Benefit Plan / Subscriber ID Effective Dates Phone Address Type Group AETNA MEDICARE AETNA MEDICARE xxxxxxxx 2019-[facility] ADVANTAGE [facility] Adler([id number] ) MEDICAID [facility] xxxxxxxx Effective for Medicaid [place] MEDICAID all dates Guarantor Name Account Type Relation to Date of Phone Billing Address Patient Charlie Personal/Famil 1945 [address] (Home) [address] [phone] [place], [place] (Work) [address] documented as of this encounter Advance Directives Type Date Recorded 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 yes Order discussed with: Patient I discussed all options and patient/surrogate requested and agreed to: Full Code
--- OUTSIDE RECORDS SUMMARY | 2019-07-15 08:51 | XMS REPORT | Summary of Care ---
:1945 Author Organization [facility] Address [address] [facility] [place] [address] Care Team Providers Name Role Phone Kimberly Juarez MD Primary Care Provider Reason for Visit Reason Comments Follow-up Follow-up to recent EGD & EUS. Encounter Details Date Type Department Care Team Description 06/15/2019 Office Visit Shena Tirado Rectal pain (Primary Dx); Gastroenterology/Hepa Columba Bundy NP Pancreatic cyst tology 1 [facility] [address] [facility] [place] [address] [place] [address] [phone] Allergies Active Allergy Reactions Severity Noted Date Comments Aspirin 12/07/2008 Rectal Bleed documented as of this encounter (statuses as of 06/15/2019) Medications Medication Sig Dispensed Refills Start Date [...] as of this encounter (statuses as of 06/15/2019) Active Problems Problem Noted Date Hyperplastic colonic polyp 10/06/2018 Abdominal mass 03/14/2017 Benign hypertension 03/14/2017 Lower GI bleed 03/14/2017 Right knee pain 08/14/2016 Illiteracy 06/06/2014 B12 deficiency 07/08/2012 Hyperlipidemia 12/07/2008 Osteoarthritis 12/07/2008 Diverticulosis 12/07/2008 Overview: S/P colonoscopy, 2005. Low back pain 12/07/2008 HTN (hypertension) AR (aortic regurgitation) Overview: mild to moderate documented as of this encounter (statuses as of 06/15/2019) Immunizations Name Administration Dates Next Due Influenza [...] Sign Reading Time Taken Comments Blood Pressure 140/84 06/15/2019 3:10 PM EDT Pulse 72 06/15/2019 3:10 PM EDT Temperature 36.7 06/15/2019 3:10 PM EDT C (98 F) Respiratory Rate - - Oxygen Saturation - - Inhaled Oxygen Concentration - - Weight 59.9 kg (132 lb) 06/15/2019 3:10 PM EDT Height 167.6 cm (5' 6") 06/15/2019 3:10 PM EDT Body Mass Index 21.31 06/15/2019 3:10 PM EDT documented in this encounter Patient Instructions Patient InstructionsColumba Tirado NP - 06/15/2019 3:20 PM EDT1. Will start Analpram when the rectum is painful as directed 2. Colonoscopy needs to be scheduled in [place], they will contact you with scheduling 3. Follow up after the above Thank you for choosing the [facility] for your needs today! -Columba Tirado N.P. , Please call if you need to cancel or change your appt. time. Thank you for choosing The [facility] for your health care needs, and for consulting with [facility] today. You may receive a survey following [...] encounter Progress Notes Columba Tirado NP - 06/15/2019 3:20 PM EDT PATIENT: Adrián Kumar : 1945 DATE OF SERVICE: 06/15/2019 REFERRING PRACTITIONER: Kimberly Juarez PRIMARY CARE PROVIDER: Kimberly Juarez CHIEF COMPLAINT: Chief Complaint Patient presents with Follow-up Follow-up to recent EGD & EUS. Subjective HISTORY OF PRESENT ILLNESS: Adrián Kumar is a 74-y.o. male who presents for follow-up of EUS after pancreatitis. EUS waspositive for benign pancreatic cyst. He continues to complain of rectal pain after BM. He continues to use laxative in an [...] Topical route THREE TIMES DAILY NEEDED (pain). Hydrocortisone Lui-Pramoxine 2.5-1 % Rectal Cream Place 1 Strip per rectum TWO TIMES DAILY ASNEEDED (rectal pain). lisinopril (PRINIVIL, ZESTRIL) 40 MG Oral Tab [...] (PROBIOTIC ADVANCED PO) Take by mouth DAILY. Sennosides (SENNA) 8.6 MG Oral Cap Take 1 Cap by mouth EVERY BEDTIME NEEDED (constipation). tramadol (ULTRAM) 50 MG Oral Tab TAKE 1 TABLET BY MOUTH EVERY 8 HOURS NEEDED FOR PAIN (MAX 3 TABS DAILY) No current facility-administered medications for this visit. Allergies Allergen Reactions Aspirin Rectal Bleed REVIEW OF SYSTEMS: All remaining review of systems was negative except for as noted in the history of present illness/subjective. Objective PHYSICAL EXAMINATION: VITALS: BP 140/84 | Pulse 72 | Temp 98 F (36.7 C) | Ht 5' 6" (1.676 m) | Wt 132 lb (59.9 kg) | BMI 21.31 kg/m Body mass index is 21.31 kg/m . GENERAL: alert, oriented, no acute distress. HEENT: No scleral icterus, MMM Psych: Affect normal Neck: supple Extrmities: no edema Skin: clear Neuro: gait normal, a&o x 3 RECTAL: exam deferred. IMPRESSION: ICD-9-CM ICD-10-CM 1. Rectal pain 569.42 K62.89 2. Pancreatic cyst 577.2 K86.2 Plan PLAN: Patient Instructions 1. Will start Analpram when the rectum is painful as directed 2. Colonoscopy needs to be scheduled in [place], they will contact you with scheduling 3. Follow up after the above Thank you for choosing the [facility] for your needs today! -Columba Tirado N.P. , Please call if you need to cancel or change your appt. time. Thank you for choosing [facility] for your health care needs, and for consulting with [facility] today. You may receive a survey following [...] minutes to complete. Author: Columba Tirado NP 06/15/2019 15:44 documented in this encounter Plan of Treatment Date Type Specialty Care Team Description 07/02/2019 Nurse/Clinical Support Internal Medicine Health Maintenance Due Date Last Done Comments [...] Problems Progress Blood Pressure Blood Pressure HTN 140/84 No Larry, < 140/90 (hypertension) (06/15/2019 Kimberly, 3:10 PM EDT) Note: Hypertension Care Plan Based on [...] Educational Resources. record my blood pressure results. Dom is safe and secure way for you to do this in your medical record online. limit alcohol consumption. For men two drinks per day and women one drink per day. if currently smoking, will discuss how to quit smoking with my healthcare provider and work towards quitting. Educational Resources: National Heart, Lung, & Blood [place] http://nhlbi.nih.gov/hbp/index.html The DASH Diet Eating Plan http://www.nhlbi.nih.gov/health/health-topics/ topics/dash/ Academy of Nutrition & DIetetics http://eatright.org National Smoking Cessation Site http://smokefree.gov Blood Pressure < Blood Pressure 140/84 (06/15/2019 Kimberly Read, 150/90 3:10 PM EDT) Note: This is an individualized treatment [...] is an individualized self-management goal for Adrián Charlie Kumar: Please take all prescribed medications as [...] filedocumented in this encounter Visit Diagnoses Diagnosis Rectal pain - Primary Anal or rectal pain Pancreatic cyst Cyst and pseudocyst of pancreas documented in this encounter Insurance Payer Benefit Plan / Subscriber ID Effective Dates Phone Address Type Group AETNA MEDICARE AETNA MEDICARE xxxxxxxx 2019-[employer] CHELSIE-DEANGELO Yeung([id number] ) MEDICAID [facility] xxxxxxxx Effective for Medicaid [place] MEDICAID all dates Guarantor Name Account Type Relation to Date of Phone Billing Address Patient Charlie Personal/Famil 1945 [address] Kumar (Home) [address] [phone] [place], [place] (Work) [id number] documented as of this encounter Advance Directives Type Date 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 yes Order discussed with: Patient I discussed all options and patient/surrogate requested and agreed to: Full Code
--- OUTSIDE RECORDS SUMMARY | 2019-07-15 08:51 | XMS REPORT | Summary of Care ---
:1945 Author Organization [facility] Address [address] [facility] [place] [address] Care Team Providers Name Role Phone Kimberly Juarez Primary Care Provider Reason for Referral Refer to Department Only (Routine) Status Reason Specialty Diagnoses / Referred By Referred To Procedures Contact Contact Pending Review Physical Therapy Diagnoses Rectal discomfort Columba Tirado NP [address] [facility] [place] [address] Reason for Visit Reason Comments Follow-up Follow-up to recent colonoscopy. Encounter Details Date Type Department Care Team Description 07/06/2019 Office Visit Shena Tirado Rectal discomfort Gastroenterology/Hepa Columba Bundy NP (Primary Dx) tology 1 [facility] [address] [facility] [place] [address] [place] [address] [phone] Allergies Active Allergy Reactions Severity Noted Date Comments Aspirin 12/07/2008 Rectal Bleed documented as of this encounter (statuses as of 07/06/2019) Medications Medication Sig Dispensed Refills Start End Status Date Date MULTIVITAMINS PO Take by mouth. 0 Active polyethylene Take 17 g by 3 Bottle 1 06/17/20 Active glycol (MIRALAX) mouth DAILY AT 18 Oral Powder 1400. tramadol (ULTRAM) TAKE 1 TABLET 60 Tab 0 09/15/20 Active 50 MG Oral BY MOUTH EVERY 18 TabIndications: 8 HOURS Other chronic pain NEEDED FOR PAIN (MAX 3 TABS DAILY) B Complex Vitamins Take by mouth 0 Active (B-COMPLEX/B-12) DAILY. Oral Tab lisinopril Take 1 Tab by 30 Tab 0 11/26/19 Active (PRINIVIL, mouth DAILY. 19 ZESTRIL) 40 MG Oral Tab Probiotic Product Take by mouth 0 Active (PROBIOTIC DAILY. ADVANCED PO) Nitroglycerin Place 1 Appl 1 Tube 0 12/05/19 Active (RECTIV) 0.4 % per rectum 19 Rectal Ointment EVERY TWELVE HOURS NEEDED (anal pain). hydrocortisone Place 1 30 Suppository 1 12/05/19 Active (ANUSOL-HC) 25 MG Suppository per 19 Rectal Suppos rectum EVERY TWELVE HOURS. hydrocortisone 1 Appl by 1 Tube 1 12/09/19 Active (HYTONE) 2.5 % Topical route 19 Apply externally THREE TIMES Cream DAILY NEEDED (pain). metoprolol TAKE 1 TABLET 60 Tab 5 03/10/20 Active (LOPRESSOR) 100 MG BY MOUTH TWICE 19 Oral Tab DAILY magnesium citrate Take by mouth. 0 Discontinued Oral Solution 019 (Patient stopped the medication) Magnesium Take by mouth 0 Discontinued Hydroxide (MILK OF NEEDED. 019 (Patient MAGNESIA PO) stopped the medication) Sennosides (SENNA) Take 1 Cap by 0 Discontinued 8.6 MG Oral Cap mouth EVERY 019 (Provider BEDTIME Discontinued) NEEDED (constipation). Hydrocortisone Place 1 Strip 30 Tube 0 06/15/20 Discontinued Lui-Pramoxine per rectum TWO 19 019 (Dose 2.5-1 % Rectal TIMES DAILY Adjustment) Cream NEEDED (rectal pain). documented as of this encounter (statuses as of 07/06/2019) Active Problems Problem Noted Date Hyperplastic colonic polyp 10/06/2018 Abdominal mass 03/14/2017 Benign hypertension 03/14/2017 Lower GI bleed 03/14/2017 Right knee pain 08/14/2016 Illiteracy 06/06/2014 B12 deficiency 07/08/2012 Hyperlipidemia 12/07/2008 Osteoarthritis 12/07/2008 Diverticulosis 12/07/2008 Overview: S/P colonoscopy, 2005. Low back pain 12/07/2008 HTN (hypertension) AR (aortic regurgitation) Overview: mild to moderate documented as of this encounter (statuses as of 07/06/2019) Immunizations Name Administration Dates Next Due Influenza [...] Sign Reading Time Taken Comments Blood Pressure 112/68 07/06/2019 9:52 AM EDT Pulse 72 07/06/2019 9:52 AM EDT Temperature 36.8 07/06/2019 9:52 AM EDT C (98.2 F) Respiratory Rate - - Oxygen Saturation - - Inhaled Oxygen Concentration - - Weight 59.4 kg (131 lb) 07/06/2019 9:52 AM EDT Height 167.6 cm (5' 6") 07/06/2019 9:52 AM EDT Body Mass Index 21.14 07/06/2019 9:52 AM EDT documented in this encounter Patient Instructions Patient InstructionsColumba Tirado NP - 07/06/2019 3:40 PM EDT1. Stop the Senna 2. Decrease the amount of Miralax you are taking 3. Schedule appointment with [facility] to discuss your rectal discomfort 4. Follow up here as needed Thank you for choosing the [facility] for your needs today! -Columba Tirado N.P. , Please call if you need to cancel or change your appt. time. Thank you for choosing The [facility] for your health care needs, and for consulting with [facility] today. You may receive a survey [...] encounter Progress Notes Columba Tirado NP - 07/06/2019 3:40 PM EDT PATIENT: Adrián Kumar : 1945 DATE OF SERVICE: 07/06/2019 REFERRING PRACTITIONER: Columba Tirado PRIMARY CARE PROVIDER: Kimberly Juarez CHIEF COMPLAINT: Chief Complaint Patient presents with Follow-up Follow-up to recent colonoscopy. Subjective HISTORY OF PRESENT ILLNESS: Adrián Kumar is a 74-y.o. male who presents for follow-up after colonoscopy to evaluate for rectal discomfort. Colonoscopy did not identify a cause for his rectal discomfort, was positive for diverticula. He continues to report the sensation of a "tightness" near his anus which he feels prevents him frombeing able to move his bowel. He reports that this causes him to strain. He is having liquid BMs, continues to take Miralax daily, and eat a high fiber diet. He does have some relief of the rectal discomfort with use of Analpram or Anusol HC suppositories however these have been costly for him. Denies abdominal pain,heartburn, dysphagia, fatigue, nausea, vomiting, melena, hamatemesis, hematochezia, constipation, jaundice, fevers, chills, night sweats , weight loss, easy bruising, chest pain, shortness [...] Tab Take 1 Tab by mouth DAILY. metoprolol (LOPRESSOR) 100 MG Oral Tab TAKE 1 TABLET BY MOUTH TWICE DAILY MULTIVITAMINS PO Take by mouth. Nitroglycerin (RECTIV) 0.4 % Rectal Ointment Place 1 Appl per rectum EVERY TWELVE HOURS NEEDED (anal pain). polyethylene glycol (MIRALAX) Oral Powder Take 17 g by mouth DAILY AT 1400. Probiotic Product (PROBIOTIC ADVANCED PO) Take by mouth DAILY. tramadol (ULTRAM) 50 MG Oral Tab TAKE 1 TABLET BY MOUTH EVERY 8 HOURS NEEDED FOR PAIN (MAX 3 TABS DAILY) No current facility-administered medications for this visit. Allergies Allergen Reactions Aspirin Rectal Bleed REVIEW OF SYSTEMS: All remaining review of systems was negative except for as noted in the history of present illness/subjective. Objective PHYSICAL EXAMINATION: VITALS: BP 112/68 | Pulse 72 | Temp 98.2 F (36.8 C) | Ht 5' 6" ( 1.676 m) | Wt 131 lb (59.4 kg) | BMI 21.14 kg/m Body mass index is 21.14 kg/m. GENERAL: alert, oriented, no acute distress. HEENT: [...] exam deferred. IMPRESSION: ICD-9-CM ICD-10-CM 1. Rectal discomfort 569.42 K62.89 REFER TO PHYSICAL THERAPY / REHAB Plan PLAN: Patient Instructions 1. Stop the Senna 2. Decrease the amount of Miralax you are taking 3. Schedule appointment with [facility] to discuss your rectal discomfort 4. Follow up here as needed Thank you for choosing the [facility] for your needs today! -Columba Tirado N.P. , Please call if you need to cancel or change your appt. time. Thank you for choosing [facility] for your health care needs, and for consulting with [facility] today. You may receive a survey [...] minutes to complete. Author: Columba Tirado NP 07/06/2019 10:19 documented in this encounter Plan of Treatment Date Type Specialty Care Team Description 08/05/2019 Nurse/Clinical Support Internal Medicine Name Type Priority Associated Diagnoses Order Schedule REFER TO PHYSICAL Referral Routine Rectal discomfort Expected: 07/06/2019, THERAPY / REHAB Expires: 07/05/2020 Health Maintenance Due Date Last Done Comments LUNG CANCER SCREENING 2001 ZOSTER IMMUNIZATION SERIES 06/25/2017 04/30/2017 (2 of 3) LIPID DISORDER SCREENING 03/06/2020 03/06/2019, 10/01/2017, 08/12/2016, Additional history exists DEPRESSION SCREENING 03/26/2020 03/26/2019, 03/26/2019 FALL RISK ASSESSMENT 03/26/2020 03/26/2019, 03/26/2019 MEDICARE ANNUAL WELLNESS 03/26/2020 03/26/2019, 03/22/2015, VISIT 03/22/2015, Additional history exists COLONOSCOPY SCREENING 07/01/2024 07/01/2019, 07/01/2019, 07/31/2017, Additional history exists PNEUMOCOCCAL 65+YRS Completed 03/22/2015, [...] Problems Progress Blood Pressure Blood Pressure HTN 112/68 No Larry, < 140/90 (hypertension) (07/06/2019 Kimberly, 9:52 AM EDT) Note: Hypertension Care Plan Based [...] Educational Resources. record my blood pressure results. AUPEO!heidie is safe and secure way for you to do this in your medical record online. limit alcohol consumption. For men two drinks per day and women one drink per day. if currently smoking, will discuss how to quit smoking with my healthcare provider and work towards quitting. Educational Resources: National Heart, Lung, & Blood [place] http://nhlbi.nih.gov/hbp/index.html The DASH Diet Eating Plan http://www.nhlbi.nih.gov/health/health-topics/ topics/dash/ Academy of Nutrition & DIetetics http://eatright.org National Smoking Cessation Site http://smokefree.gov Blood Pressure < Blood Pressure 112/68 (07/06/2019 Kimberly Read, 150/90 9:52 AM EDT) Note: This is an individualized [...] in this encounter Visit Diagnoses Diagnosis Rectal discomfort - Primary Anal or rectal pain documented in this encounter Insurance Payer Benefit Plan / Subscriber ID Effective Dates Phone Address Type Group AETNA MEDICARE AETNA MEDICARE xxxxxxxx 2019-[facility] DEANGELO Adler([id number] ) MEDICAID [place] xxxxxxxx Effective for Medicaid [place] all dates Guarantor Name Account Type Relation to Date of Phone Billing Address Patient Charlie Personal/Famil 1945 [address] Kumar (Home) [address] [phone] [place], [place] (Work) [address] documented as of this encounter Advance Directives Type Date Recorded Patient Hha 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 yes Order discussed with: Patient I discussed all options and patient/surrogate requested and agreed to: Full Code
--- OUTSIDE RECORDS SUMMARY | 2019-07-15 08:51 | XMS REPORT | Summary of Care ---
:1945 Author Organization [facility] Address [address] [facility] [place] [address] Care Team Providers Name Role Phone Kimberly Juarez MD Primary Care Provider Reason for Visit Reason Comments [place] [facility] [place] Encounter Details Date Type Department Care Team Description 06/01/2019 Office Visit [facility] Larry, Constipation, unspecified constipation type (Primary Dx); Practice MD Kimberly Leukopenia, unspecified type; [address] [facility] Vitamin B12 deficiency; [place] [address] [place] [address] Flu vaccine need; [phone] Pancreatic cyst Allergies Active Allergy Reactions Severity Noted Date Comments Aspirin 12/07/2008 Rectal Bleed documented as of this encounter (statuses as of 06/01/2019) Medications Medication Sig Dispensed Refills Start End Status Date Date MULTIVITAMINS PO Take by mouth. 0 Active polyethylene Take 17 g by 3 Bottle 1 Active glycol (MIRALAX) mouth DAILY AT 8 Oral Powder 1400. tramadol (ULTRAM) TAKE 1 TABLET 60 Tab 0 Active 50 MG Oral BY MOUTH EVERY 8 TabIndications: 8 HOURS Other chronic pain NEEDED FOR PAIN (MAX 3 TABS DAILY) B Complex Vitamins Take by mouth 0 Active (B-COMPLEX/B-12) DAILY. Oral Tab lisinopril Take 1 Tab by 30 Tab 0 Active (PRINIVIL, mouth DAILY. 9 ZESTRIL) 40 MG Oral Tab Probiotic Product Take by mouth 0 Active (PROBIOTIC DAILY. ADVANCED PO) Nitroglycerin Place 1 Appl 1 Tube 0 Active (RECTIV) 0.4 % per rectum 9 Rectal Ointment EVERY TWELVE HOURS NEEDED (anal pain). hydrocortisone Place 1 30 Suppository 1 Active (ANUSOL-HC) 25 MG Suppository per 9 Rectal Suppos rectum EVERY TWELVE HOURS. hydrocortisone 1 Appl by 1 Tube 1 Active (HYTONE) 2.5 % Topical route 9 Apply externally THREE TIMES Cream DAILY NEEDED (pain). metoprolol TAKE 1 TABLET 60 Tab 5 Active (LOPRESSOR) 100 MG BY MOUTH TWICE 9 Oral Tab DAILY magnesium citrate Take by mouth. 0 Active Oral Solution Magnesium Take by mouth 0 Active Hydroxide (MILK OF NEEDED. MAGNESIA PO) Sennosides (SENNA) Take 1 Cap by 0 Active 8.6 MG Oral Cap mouth EVERY BEDTIME NEEDED (constipation). Simethicone (GAS Take by mouth. 0 Discontinued RELIEF [address] 019 PO) Hospital, Clinic, or Other Ordered Dose Route Frequency Start Date End Date Status Facility Administered Medication cyanocobalamin (VITAMIN 1000 mcg IM X1 06/01/2019 06/01/2019 Ended B12) injection 1,000 mcgIndications: Vitamin B12 deficiency documented as of this encounter (statuses as of 06/01/2019) Active Problems Problem Noted Date Hyperplastic colonic polyp 10/06/2018 Abdominal mass 03/14/2017 Benign hypertension 03/14/2017 Lower GI bleed 03/14/2017 Right knee pain 08/14/2016 Illiteracy 06/06/2014 B12 deficiency 07/08/2012 Hyperlipidemia 12/07/2008 Osteoarthritis 12/07/2008 Diverticulosis 12/07/2008 Overview: S/P colonoscopy, 2006. Low back pain 12/07/2008 HTN (hypertension) AR (aortic regurgitation) Overview: mild to moderate documented as of this encounter (statuses as of 06/01/2019) Immunizations Name Administration Dates Next Due Influenza [...] Sign Reading Time Taken Comments Blood Pressure 154/80 06/01/2019 2:00 PM EDT Pulse 70 06/01/2019 2:00 PM EDT Temperature 37.4 06/01/2019 2:00 PM C (99.4 EDT F) Respiratory Rate - - Oxygen Saturation 99% 06/01/2019 2:00 PM EDT Inhaled Oxygen Concentration - - Weight 62.1 kg (136 lb 14.4 oz) 06/01/2019 2:00 PM EDT Height 167.6 cm (5' 6") 06/01/2019 2:00 PM EDT Body Mass Index 22.1 06/01/2019 2:00 PM EDT documented in this encounter Progress Notes Kimberly Juarez MD - 06/01/2019 2:00 PM EDT Patient: Adrián Kumar Date of Service: 06/01/2019 Subjective: Adrián Kumar is a 74-y.o. male who presents for Chief Complaint Patient presents with Follow [place] [facility] [place] TCM Statement. Review of the hospitalization: I am seeing for transition of care following hospitalization. The date of discharge was: Constipation. Leukopenia; Pancreatic cyst The discharge diagnosis was 05/20/19. I reviewed the discharge summary, discharge instructions, and pertinent additional documentation obtained during hospitalization. I reconciled the medications. I also reviewed the Transition of Care documentation done by staff. The tests that were not available at the time of discharge were reviewed. Patient with long history of constipation presented to [facility] on with complains of abdominal pain, constipation. Evaluation at the ERR showed : CBC - Leukopenia, CMP, amylase, lipase - normal CT of the abdomen and pelvis showed cystic lesion I pancreatic tail 2.7 cm Patient was seen by Hematology Had bone marrow aspiration done that showed mildly hypercellular bone marrow Followed with hematology as outpatient. Advised on benign findings Patient was treated with Millicent Lax, Senna and MOM with improvement Coordination of care. (delete one and this phrase) - I am satisfied that appropriate referrals are in place to deal with the problems identified during hospitalization, and that the patient has adequate community resources and support in place. - Additional testing related to hospitalization was requested today: yes See orders. I confirmed the patient's understanding of the diagnosis and plan of care. Specific education that was provided today: There are no Patient Instructions on file for this visit. The current and discharge medications were reconciled by me, today The source document was hospital discharge summary Past Medical History: Diagnosis Date AR (aortic regurgitation) mild to moderate B12 deficiency 07/08/2012 Diverticulosis 12/07/2008 S/P colonoscopy, 2005. HTN (hypertension) Hyperlipidemia 12/07/2008 Low back pain 12/07/2008 Osteoarthritis 12/07/2008 Outpatient Medications as of 06/01/2019 Medication Sig Dispense Refill B Complex Vitamins (B-COMPLEX/B-12) Oral Tab Take by mouth DAILY. hydrocortisone (ANUSOL-HC) [address] 1 Suppository per rectum EVERY TWELVE HOURS. 30 Suppository 1 hydrocortisone (HYTONE) 2.5 % Apply externally Cream 1 Appl by Topical route THREE TIMES DAILY NEEDED (pain). 1 Tube 1 lisinopril (PRINIVIL, ZESTRIL) 40 MG Oral Tab Take 1 Tab by mouth DAILY. 30 Tab 0 magnesium citrate Oral Solution Take by mouth. Magnesium Hydroxide (MILK OF MAGNESIA PO) Take by mouth NEEDED. metoprolol (LOPRESSOR) 100 MG Oral Tab TAKE 1 TABLET BY MOUTH TWICE DAILY 60 Tab 5 MULTIVITAMINS PO Take by mouth. Nitroglycerin (RECTIV) 0.4 % Rectal Ointment Place 1 Appl per rectum EVERY TWELVE HOURS NEEDED (anal pain). 1 Tube 0 polyethylene glycol (MIRALAX) Oral Powder Take 17 g by mouth DAILY AT 1400. 3 Bottle 1 Probiotic Product (PROBIOTIC ADVANCED PO) Take by mouth DAILY. tramadol (ULTRAM) 50 MG Oral Tab TAKE 1 TABLET BY MOUTH EVERY 8 HOURS NEEDED FOR PAIN (MAX 3 TABS DAILY) 60 Tab 0 No current facility-administered medications on file as of 06/01/2019. Allergies Allergen Reactions Aspirin Rectal Bleed Review of Systems: All remaining review of systems was negative. Objective: BP 154/80 (BP Location: Left arm, Patient Position: Sitting) Pulse 70 Temp 99.4 F (37.4 C) Ht 5' 6" (1.676 m) Wt 136 lb 14.4 oz (62.1 kg) SpO2 99 % BMI 22.1 kg/m2 GENERAL: alert, no distress THROAT: lips, mucosa, and tongue normal: teeth and gums normal NECK: supple, symmetrical, trachea midline, no adenopathy and thyroid: not enlarged, symmetric, notenderness/mass/nodules LUNGS: clear to auscultation bilaterally HEART: regular rate and rhythm, S1, S2 normal, no murmur, click, rub or gallop ABDOMEN: soft, non-tender. Bowel sounds normal. No masses, no organomegaly ICD-9-CM ICD-10-CM 1. Constipation, unspecified constipation type Improved 564.00 K59.00 2. Leukopenia, unspecified type 288.50 D72.819 CBC WITH DIFFERENTIAL 3. Vitamin B12 deficiency 266.2 E53.8 cyanocobalamin (VITAMIN B12) injection 1, 000 mcg 4. Flu vaccine need V04.81 Z23 [place] FLU VACCINE HIGH DOSE 5. Pancreatic cyst Had benign cytology 2017 EUS pnd 577.2 K86.2 Follow up by results of the tests and as needed Author: Kimberly Juarez MD documented in this encounter Plan of Treatment Date Type Specialty Care Team Description 06/04/2019 IPPR Gastroenterology Ramos Rojas MD [address] [place] [address] 06/04/2019 Hospital Encounter Anesthesiology Ramos Rojas MD [address] [address] 06/04/2019 Surgery Ramos Rojas MD ULTRASOUND/UGI/?ERCP [address] [place] [address] 06/07/2019 Nurse/Clinical Internal Medicine Support Name Type Priority Associated Diagnoses Date/Time CBC WITH DIFFERENTIAL Lab Routine Leukopenia, unspecified 06/01/2019 2:46 PM type EDT AMYLASE Lab Routine 06/01/2019 2:46 PM EDT LIPASE Lab Routine 06/01/2019 2:46 PM EDT COMPREHENSIVE METABOLIC Lab Routine 06/01/2019 2:46 PM PANEL EDT Health Maintenance Due Date Last Done Comments [...] Problems Progress Blood Pressure Blood Pressure HTN 154/80 No Larry, < 140/90 (hypertension) (06/01/2019 Kimberly, 2:00 PM EDT) Note: Hypertension Care Plan Based [...] Educational Resources: National Heart, Lung, & Blood [place] http://nhlbi.nih.gov/hbp/index.html The DASH Diet Eating Plan http://www.nhlbi.nih.gov/health/health-topics/ topics/dash/ Academy of Nutrition & DIetetics http://eatright.org National Smoking Cessation Site http://smokefree.gov Blood Pressure < Blood Pressure 154/80 (06/01/2019 Kimberly Read, 150/90 2:00 PM EDT) Note: This is an individualized [...] filedocumented in this encounter Visit Diagnoses Diagnosis Constipation, unspecified constipation type - Primary Leukopenia, unspecified type Vitamin B12 deficiency Other B-complex deficiencies Flu vaccine need Need for prophylactic vaccination and inoculation against influenza Pancreatic cyst Cyst and pseudocyst of pancreas documented in this encounter Administered Medications Medication Order MAR Action Action Date Dose Rate Site cyanocobalamin (VITAMIN B12) Given 06/01/2019 2:33 PM 1,000 mcg Left Arm injection 1,000 mcg EDT 1,000 mcg, Intramuscular, X1, 1 dose, First dose on Fri06/01/19 at 1550 documented in this encounter Insurance Payer Benefit Plan / Subscriber ID Effective Dates Phone Address Type Group AETNA MEDICARE AETNA MEDICARE xxxxxxxx 2019-Presen Aetna ADVANTAGE [facility] DEANGELO LUCIO([id number] ) MEDICAID [facility] xxxxxxxx Effective for Medicaid [place] all dates Guarantor Name Account Type Relation to Date of Phone Billing Address Patient Charlie Personal/Famil 1945 [address] ([address] [phone] [place], [place] (Work) [id number] documented as of this encounter Advance Directives Type Date Recorded Patient Heel Padder 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 yes Order discussed with: Patient I discussed all options and patient/surrogate requested and agreed to: Full Code
[2019-07-15 09:12] LABS: ABS Eosinophils 0.1 10^3/ul (0-0.6); ABS Lymphocytes 0.8 10^3/ul (1.0-4.8); ABS Monocytes 0.7 10^3/ul (0-0.8); ABS Neutrophils 1.4 10^3/ul (1.5-7.7); Eosinophil % 4.3 %; Hematocrit 47 % (42-52); Hemoglobin 16.3 g/dL (14.0-18.0); Lymphocyte % 27.2 %; Mean Corpuscular HGB Conc 34 g/dL (31-36); Mean Corpuscular Hemoglobin 34 pg (27-31); Mean Corpuscular Volume 100 fL (80-94); Nucleated Red Blood Cells % 0.2; Platelet Count 217 10^3/uL (150-450); Red Blood Count 4.74 10^6 /uL (4.18-5.48); Red Cell Distribution Width 14 % (10-15); White Blood Count 3.1 10^3/uL (3.5-10.8)
[2019-07-15 09:37] LABS: ALT 12 U/L (7-52); AST 17 U/L (13-39); Albumin/Globulin Ratio 1.6 (1-3); Alkaline Phosphatase 70 U/L (34-104); Anion Gap 4 mmol/L (2-11); BUN/Creatinine Ratio 5.8 (8-20); Blood Urea Nitrogen 8 mg/dL (6-24); C Reactive Protein < 1.00 mg/L (<8.01); CO2 Carbon Dioxide 29 mmol/L (22-32); Calcium 10.2 mg/dL (8.6-10.3); Chloride 105 mmol/L (101-111); EGFR African American 61.1 (>60); EGFR Non-African American 50.5 (>60); Globulin 3.1 g/dL (2-4); Glucose 100 mg/dL (70-100); Potassium 3.8 mmol/L (3.5-5.0); Sodium 138 mmol/L (135-145); Total Protein 8.1 g/dL (6.4-8.9)
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
[2019-07-15 10:57] LABS: Urine Appearance Cloudy; Urine Bacteria Absent (Absent); Urine Bilirubin Negative (Negative); Urine Blood 2+ (Negative); Urine Color Yellow; Urine Glucose Negative (Negative); Urine Ketones Negative (Negative); Urine Nitrite Negative (Negative); Urine Protein 1+(30 mg/dL) (Negative); Urine Red Blood Cell 3+(>10/hpf) (Absent); Urine Specific Gravity 1.005 (1.010-1.030); Urine Urobilinogen Negative (Negative); Urine White Blood Cell Trace(0-5/hpf) (Absent)
[2019-07-15] MEDS ORDERED: Iodixanol* (CONTRAST) 320 MG/ML 100 ML SDV IV ONE (11:52)
[2019-07-15] MEDS ORDERED: Polyethylene Glycol 3350 BTL* 238 GM BTL PO ONE (13:42)
[2019-07-15] MEDS ORDERED: Polyethylene Glycol 3350* 17 GM PACKET PO ONE (14:00)
[2019-07-15 16:58] VITALS: BP 177/98
== END 2019-07-15 16:57 | disposition home or self-care (01) ==
LOC: ED 08:40
DX: K59.00 Constipation, unspecified (principal); I10 Essential (primary) hypertension; F17.290 Nicotine dependence, other tobacco product, uncomplicated; Z79.899 Other long term (current) drug therapy; Z88.6 Allergy status to analgesic agent
CPT/HCPCS: 36415; 74177; 80053; 81003; 81015; 83605; 83690; 85025; 86140; 87086; 99282; A9270-GY; Q9967

== ENCOUNTER 2019-07-16 15:07 | Emergency (ER) | payer MEDICARE, MEDICAID ==
[2019-07-16 17:43] LABS: ABS Eosinophils 0.1 10^3/ul (0-0.6); ABS Lymphocytes 1.4 10^3/ul (1.0-4.8); ABS Monocytes 0.7 10^3/ul (0-0.8); ABS Neutrophils 2.1 10^3/ul (1.5-7.7); Hematocrit 46 % (42-52); Lymphocyte % 33.2 %; Mean Corpuscular HGB Conc 35 g/dL (31-36); Mean Corpuscular Hemoglobin 35 pg (27-31); Mean Corpuscular Volume 100 fL (80-94); Mean Platelet Volume 8.6 fL (7.4-10.4); Nucleated Red Blood Cells % 0.1; Platelet Count 204 10^3/uL (150-450); Red Blood Count 4.56 10^6 /uL (4.18-5.48); Red Cell Distribution Width 14 % (10-15); White Blood Count 4.3 10^3/uL (3.5-10.8)
[2019-07-16 18:00] LABS: Albumin 5.3 g/dL (3.2-5.2); Albumin/Globulin Ratio 1.7 (1-3); BUN/Creatinine Ratio 8.7 (8-20); C Reactive Protein 1.03 mg/L (<8.01); Calcium 10.4 mg/dL (8.6-10.3); EGFR African American 67.9 (>60); EGFR Non-African American 56.1 (>60); Globulin 3.1 g/dL (2-4); Potassium 3.4 mmol/L (3.5-5.0); Total Bilirubin 0.7 mg/dL (0.2-1.0); Total Protein 8.4 g/dL (6.4-8.9)
--- NOTE | 2019-07-16 20:22 | ED ---
Abdominal Pain/Male - HPI Summary HPI Summary: This pt is a 74 Y/O M presenting to [facility] with a CC of constipation that has been present for the last couple days. He states that he was here yesterday for a similar complaint. He states that he has a feeling that there is something in his bowels. He states that he has a decreased appetite due to the pain and feeling he has been having. He states that he has lower abdominal pain that is a 10/10 in severity. He denies any N/V, CP, headaches, SOB, and fevers. He states that he was prescribed laxatives and has been taking them as directed with no effect. He has no aggravating or alleviating factors. He has a PMHx of HTN. - History of Current Complaint Chief Complaint: EDAbdPain Stated Complaint: CONSTIPATION Time Seen by Provider: 07/16/19 20:13 Hx Obtained From: Patient Onset/Duration: Sudden Onset, Still Present Timing: Constant Severity Initially: Severe Severity Currently: Severe Pain Intensity: 10 Pain Scale Used: 0-10 Numeric Location: Other - lower abdomen, states close to his bowel Radiates: No Character: Other: - constipated Aggravating Factor(s): Nothing Alleviating Factor(s): Nothing Associated Signs And Symptoms: Positive: Negative - headaches, SOB, Decreased Appetite, Other - constipated. Negative: Fever, Chest Pain, Nausea, Vomiting Similar Episode/Dx As:: states he was here recently for similar symptoms - Allergies/Home Medications Allergies/Adverse Reactions: Allergies Allergy/AdvReac Type Severity Reaction Status Date / Time aspirin Allergy Bleeding Verified 07/15/19 08:44 PMH/Surg Hx/FS Hx/Imm Hx Previously Healthy: Yes Endocrine/Hematology History: Denies: Hx Diabetes Cardiovascular History: Reports: Hx Hypertension - ON DAILY MEDS Denies: Hx Pacemaker/ICD Respiratory History: Denies: Hx Asthma History: Denies: Hx Renal Disease Musculoskeletal History: Reports: Hx Arthritis - HANDS, KNEES Sensory History: Reports: Hx Contacts or Glasses - WILL NOT BE WEARING DAY OF SURGERY Denies: Hx Legally Blind, Hx Deafness, Hx Hearing Aid Opthamlomology History: Reports: Hx Contacts or Glasses - WILL NOT BE WEARING DAY OF SURGERY Denies: Hx Legally Blind Psychiatric History: Denies: Hx Panic Disorder, Hx Suicide Attempt, Hx of Violent Episodes Against Others - Surgical History Surgical History: Yes Surgery Procedure, Year, and Place: pt eyelid cut with ontiveros 20 years ago so had surgery to stich cut together Hx Anesthesia Reactions: No Infectious Disease History: No Infectious Disease History: Denies: Traveled Outside the [place] in Last 30 Days - Family History Known Family History: Negative: Cardiac Disease, Hypertension, Diabetes, Respiratory Disease, Blood Disorder - Social History Occupation: Retired Lives: Alone Alcohol Use: None Hx Substance Use: Yes Substance Use Type: Reports: Marijuana Substance Use Comment - Amount & Last Used: WILL REFRAIN UNTIL AFTER SURGERY Hx Tobacco Use: Yes - previous cig smoking, now cigars Smoking Status (MU): Light Every Day Tobacco Smoker Type: Cigars Amount Used/How Often: 2-3 CIGARS/DAY 35 YRS Have You Smoked in the Last Year: Yes Review of Systems Negative: Fever Negative: Chest Pain Negative: Shortness Of Breath Positive: Abdominal Pain - lower abdominal . Negative: Vomiting, Nausea Positive: other - States constipated Negative: Headache All Other Systems Reviewed And Are Negative: Yes Physical Exam - Summary Physical Exam Summary: Appearance: Well-appearing, Well-nourished, lying in bed comfortably Skin: Warm, dry, no obvious rash Eyes: sclera anicteric, no conjunctival pallor ENT: mucous membranes moist, pharynx appears normal Neck: Supple, nontender Respiratory: Clear to auscultation, no signs of respiratory distress Cardiovascular: Normal S1, S2. No murmurs. Normal distal pulses in tibial and radial bilaterally. Abdomen: Soft, nontender, normal active bowel sounds present Musculoskeletal: Normal, Strength/ROM Intact Neurological: A&Ox3, awake and alert, mentation is normal, speech is fluent and appropriate Psychiatric: affect is normal, does not appear anxious or depressed Rectal: Normal, no prolapsed seen, rectal wall is empty. Triage Information Reviewed: Yes Vital Signs On Initial Exam: Initial Vitals Temp Pulse Resp BP Pulse Ox 99.6 F 86 16 177/105 98 07/16/19 15:24 07/16/19 15:24 07/16/19 15:24 07/16/19 15:24 07/16/19 15:24 Vital Signs Reviewed: Yes Procedures - Sedation Patient Received Moderate/Deep Sedation with Procedure: No Diagnostics - Vital Signs Vital Signs Temp Pulse Resp BP Pulse Ox 07/16/19 19:55 99.4 F 69 18 183/87 98 07/16/19 17:27 98.3 F 65 16 186/88 98 07/16/19 15:24 99.6 F 86 16 177/105 98 - Laboratory Lab Results: Lab Results 07/16/19 07/16/19 07/16/19 Range/Units 17:37 17:37 17:37 WBC 4.3 (3.5-10.8) 10^3/uL RBC 4.56 (4.18-5.48) 10^6 /uL Hgb 16.0 (14.0-18.0) g/dL Hct 46 (42-52) % MCV 100 H (80-94) fL MCH 35 H (27-31) pg MCHC 35 (31-36) g/dL RDW 14 (10-15) % Plt Count 204 (150-450) 10^3/uL MPV 8.6 (7.4-10.4) fL Neut % (Auto) 48.6 % Lymph % (Auto) 33.2 % Piute % (Auto) 15.4 % Eos % (Auto) 2.0 % Baso % (Auto) 0.8 % Absolute Neuts (auto) 2.1 (1.5-7.7) 10^3/ul Absolute Lymphs (auto) 1.4 (1.0-4.8) 10^3/ul Absolute Monos (auto) 0.7 (0-0.8) 10^3/ul Absolute Eos (auto) 0.1 (0-0.6) 10^3/ul Absolute Basos (auto) 0.0 (0-0.2) 10^3/ul Absolute Nucleated RBC 0.0 10^3/ul Nucleated RBC % 0.1 Sodium 138 (135-145) mmol/L Potassium 3.4 L (3.5-5.0) mmol/L Chloride 101 (101-111) mmol/L Carbon Dioxide 27 (22-32) mmol/L Anion Gap 10 (2-11) mmol/L BUN 11 (6-24) mg/dL Creatinine 1.26 H (0.67-1.17) mg/dL Est GFR ( Amer) 67.9 (>60) Est GFR (Non-Af Amer) 56.1 (>60) BUN/Creatinine Ratio 8.7 (8-20) Glucose 101 H (70-100) mg/dL Lactic Acid 1.0 (0.5-2.0) mmol/L Calcium 10.4 H (8.6-10.3) mg/dL Total Bilirubin 0.70 (0.2-1.0) mg/dL AST 16 (13-39) U/L ALT 11 (7-52) U/L Alkaline Phosphatase 75 (34-104) U/L C-Reactive Protein 1.03 (<8.01) mg/L Total Protein 8.4 (6.4-8.9) g/dL Albumin 5.3 H (3.2-5.2) g/dL Globulin 3.1 (2-4) g/dL Albumin/Globulin Ratio 1.7 (1-3) Lipase 35 (11.0-82.0) U/L Result Diagrams: 07/16/19 17:37 07/16/19 17:37 Lab Statement: Any lab studies that have been ordered have been reviewed, and results considered in the medical decision making process. - Radiology Abdominal X-Ray Radiology Interpretation Completed By: Radiologist Summary of Radiographic Findings: No acute pathologies. ED physician has reviewed this report. Abdominal Pain Male Course/Dx - Course Course Of Treatment: This pt is a 74 Y/O M presenting to [facility] with a CC of constipation that has been present for the last couple days. He states that he was here yesterday for a similar complaint. He states that he has a feeling that there is something in his bowels. He states that he has a decreased appetite due to the pain and feeling he has been having. He states that he has lower abdominal pain that is a 10/10 in severity. His PE found no abnormalities , including his rectal exam. His Abdominal X-Ray found no acute pathologies. His blood work has no abnormalities for his current CC. He will be discharged home with a Dx of a rectal prolapse and will be encouraged to continue to take his stool softener medication. He was instructed to return to the ED for any new or wrosening symptoms and encouraged to drink fluids and follow up with his PCP in 1-3 days. - Diagnoses Provider Diagnoses: Rectal prolapse Discharge ED - Sign-Out/Discharge Documenting (check all that apply): Patient Departure - discharge - Discharge Plan Condition: Stable Disposition: HOME Patient Education Materials: Rectal Prolapse (ED) Print Language: NEPALI Referrals: Arie Almaraz MD [Medical Doctor] - As Soon As Possible Additional Instructions: I think you are having some rectal prolapse from what you are telling me. This is not a dangerous condition but can be addressed surgically if needed. First you need to get your stools very soft to reduce the pressure down there, in addition to what you are doing I would recommend taking colace twice daily. - Billing Disposition and Condition Condition: STABLE Disposition: Home - Attestation Statements Document Initiated by Tim: Yes Documenting Scribe: Francesco Durbin Provider For Whom Tim is Documenting (Include Credential): Anthony Reynolds MD Scribe Attestation: I, Francesco Durbin, scribed for Anthony Reynolds MD on 07/17/19 at 1923. Scribe Documentation Reviewed: Yes Provider Attestation: The documentation as recorded by the Francesco ahumada accurately reflects the service I personally performed and the decisions made by me, Anthony Reynolds MD Status of Scribe Document: Viewed
[2019-07-16 20:47] VITALS: BP 178/99
== END 2019-07-16 20:46 | disposition home or self-care (01) ==
LOC: ED 15:07
DX: K62.3 Rectal prolapse (principal); I10 Essential (primary) hypertension; F17.290 Nicotine dependence, other tobacco product, uncomplicated; Z79.899 Other long term (current) drug therapy; Z88.6 Allergy status to analgesic agent
CPT/HCPCS: 36415; 74019; 80053; 83605; 83690; 85025; 86140; 99282

== ENCOUNTER 2019-07-19 07:04 | Emergency (ER) | payer MEDICARE, MEDICAID ==
--- NOTE | 2019-07-19 07:30 | ED ---
GI/ HPI - HPI Summary HPI Summary: Pt is a 74 y/o M presenting to the ED for a chief complaint of constipation. Pt took Miralax the morning of 07/19/19 after which pt had a bowel movement that he describes as small pieces. Pt admits rectal pain, abdominal pain, and urinary retention. Pt admits drinking plenty of fluids without relief. Pt denies any fever, chills, erythema of eyes, sore throat, CP, SOB, cough, N/V, dysuria, hematuria, myalgia, edema, rash, or dizziness. Pt was previously seen at [facility] for constipation and given constipation medications without relief. Pt denies constipation in the past. Pt denies taking any pain medications. Pt last took his medications for HTN on 07/19/19. Pt has a PCP, but has not seen his PCP. - History of Current Complaint Chief Complaint: EDConstipation Stated Complaint: GENERAL PER PT Hx Obtained From: Patient Onset/Duration: Atraumatic, Still Present Timing: Constant Severity: Severe Current Severity: Severe Pain Intensity: 10 Location of Pain: Diffuse, Rectal Associated Signs and Symptoms: Positive: Rectal Pain, Constipation, Abdominal Pain, Other: - Positive urinary retention. Negative: Dizziness, Nausea, Vomiting, Diarrhea, Fever, Hematuria, Dysuria, Chills, Cough, Chest Pain - Allergy/Home Medications Allergies/Adverse Reactions: Allergies Allergy/AdvReac Type Severity Reaction Status Date / Time aspirin Allergy Bleeding Verified 07/19/19 07:08 PMH/Surg Hx/FS Hx/Imm Hx Previously Healthy: Yes Endocrine/Hematology History: Denies: Hx Diabetes Cardiovascular History: Reports: Hx Hypertension - ON DAILY MEDS Denies: Hx Pacemaker/ICD Respiratory History: Denies: Hx Asthma History: Denies: Hx Renal Disease Musculoskeletal History: Reports: Hx Arthritis - HANDS, KNEES Sensory History: Reports: Hx Contacts or Glasses - WILL NOT BE WEARING DAY OF SURGERY Denies: Hx Legally Blind, Hx Deafness, Hx Hearing Aid Opthamlomology History: Reports: Hx Contacts or Glasses - WILL NOT BE WEARING DAY OF SURGERY Denies: Hx Legally Blind EENT History: Denies: Hx Deafness Psychiatric History: Denies: Hx Panic Disorder, Hx Suicide Attempt, Hx of Violent Episodes Against Others - Surgical History Surgical History: Yes Surgery Procedure, Year, and Place: pt eyelid cut with ontiveros 20 years ago so had surgery to stich cut together Hx Anesthesia Reactions: No Infectious Disease History: No Infectious Disease History: Denies: Traveled Outside the [place] in Last 30 Days - Family History Known Family History: Negative: Cardiac Disease, Hypertension, Diabetes, Respiratory Disease, Blood Disorder - Social History Alcohol Use: None Hx Substance Use: Yes Substance Use Type: Reports: Marijuana Substance Use Comment - Amount & Last Used: WILL REFRAIN UNTIL AFTER SURGERY Hx Tobacco Use: Yes - previous cig smoking, now cigars Smoking Status (MU): Light Every Day Tobacco Smoker Type: Cigars Amount Used/How Often: 2-3 CIGARS/DAY 35 YRS Have You Smoked in the Last Year: Yes Review of Systems Negative: Fever, Chills Negative: Erythema Negative: Sore Throat Negative: Chest Pain Negative: Shortness Of Breath, Cough Positive: Abdominal Pain, Other - Positive constipation. Negative: Vomiting, Nausea Positive: pain - Rectal, other - Positive urinary retention. Negative: dysuria , hematuria Negative: Myalgia, Edema Negative: Rash Neurological: Other - Negative dizziness All Other Systems Reviewed And Are Negative: Yes Physical Exam - Summary Physical Exam Summary: Constitutional: Well-developed, Well-nourished, Alert. (-) Distressed Skin: Warm, Dry HENT: Normocephalic; Atraumatic Eyes: Conjunctiva normal Neck: Musculoskeletal ROM normal neck. (-) JVD, (-) Stridor, (-) Tracheal deviation Cardio: Rhythm regular, rate normal, Heart sounds normal; Intact distal pulses; The pedal pulses are 2+ and symmetric. Radial pulses are 2+ and symmetric. (-) Murmur Pulmonary/Chest wall: Effort normal. (-) Respiratory distress, (-) Wheezes, (-) Rales Abd: (-) Distension, (-) Guarding, (-) Rebound. Abdomen is soft and non-tender. Musculoskeletal: (-) Edema Lymph: (-) Cervical adenopathy Neuro: Alert, Oriented x3 Psych: Mood and affect Normal Rectal: no evidence of a rectal prolapse, no palpable fecal impaction, no perirectal abscess, no prostatitis, prostate was non-tender to palpation. Triage Information Reviewed: Yes Vital Signs On Initial Exam: Initial Vitals Temp Pulse Resp BP Pulse Ox 98.7 F 87 22 205/112 95 07/19/19 07:05 07/19/19 07:05 07/19/19 07:05 07/19/19 07:05 07/19/19 07:05 Vital Signs Reviewed: Yes Procedures - Sedation Patient Received Moderate/Deep Sedation with Procedure: No Diagnostics - Vital Signs Vital Signs Temp Pulse Resp BP Pulse Ox 07/19/19 07:13 76 181/94 95 07/19/19 07:05 98.7 F 87 22 205/112 95 - Laboratory Result Diagrams: 07/19/19 08:25 Lab Statement: Any lab studies that have been ordered have been reviewed, and results considered in the medical decision making process. GIGU Course/Dx - Course Course Of Treatment: Pt is a 74 y/o M presenting to the ED for a chief complaint of constipation. Pt took Miralax the morning of 07/19/19 after which pt had a bowel movement that he describes as small pieces. Pt admits rectal pain, abdominal pain, and just came from the bathroom and said he couldn't urinate. Pt admits drinking plenty of fluids without relief. Pt denies any fever , chills, erythema of eyes, sore throat, CP, SOB, cough, N/V, dysuria, hematuria , myalgia, edema, rash, or dizziness. Pt was previously seen at [facility] for constipation and given constipation medications without relief. Pt denies constipation in the past. Pt denies taking any pain medications. On exam, no evidence of a rectal prolapse, no palpable fecal impaction, no perirectal abscess, no prostatitis, prostate was non-tender to palpation. Abdomen is soft and non-tender. Laboratory abnormal findings: WBC 2.4, MCV 102, MCH 34, urine specific gravity 1.009, urine blood 2+, urine RBC 2+. Pt completely emptied his bladder based on post-residual bladder scan with no evidence of urinary retention. Pt will be discharged with a diagnosis of constipation and tenesmus. Follow up with [facility] and a solar development engineer in 2-3 days. There is no suggestion of cauda equina syndrome, the patient reports no back pain or saddle paresthesia. The patient has chronic leukopenia, this should have outpatient follow-up. I do not suspect sepsis. - Diagnoses Provider Diagnoses: Constipation, Tenesmus, Chronic leukopenia Discharge ED - Sign-Out/Discharge Documenting (check all that apply): Patient Departure - Discharge - Discharge Plan Condition: Stable Disposition: HOME Prescriptions: Mineral Oil ENEMA* [Fleet Mineral Oil Enema*] 1 bottle SC ONCE #1 btl Peg 3000 Gi Lavage* [Golytely*] 4,000 ml PO ONCE #1 btl Patient Education Materials: Constipation (ED) Referrals: Kimberly Juarez MD [Primary Care Provider] - [facility] [Outside] Additional Instructions: Follow up with [facility] and a solar development engineer in 2-3 days. Increase your water intake. RETURN TO THE EMERGERNCY DEPARTMENT FOR CHANGING OR WORSENING SYMPTOMS. - Billing Disposition and Condition Condition: STABLE Disposition: Home - Attestation Statements Document Initiated by Scribe: Yes Documenting Scribe: Irene Morel Provider For Whom Tim is Documenting (Include Credential): Catrachito Valentin MD Scribe Attestation: Irene Johnson, scribed for Catrachito Valentin MD on 07/19/19 at 0841. Scribe Documentation Reviewed: Yes Provider Attestation: The documentation as recorded by the Irene ahumada accurately reflects the service I personally performed and the decisions made by Catrachito galeana MD Status of Scribe Document: Viewed
[2019-07-19 08:32] LABS: Urine Appearance Cloudy; Urine Bacteria Absent (Absent); Urine Bilirubin Negative (Negative); Urine Blood 2+ (Negative); Urine Color Yellow; Urine Glucose Negative (Negative); Urine Ketones Negative (Negative); Urine Nitrite Negative (Negative); Urine Protein Negative (Negative); Urine Red Blood Cell 2+(6-10/hpf) (Absent); Urine Specific Gravity 1.009 (1.010-1.030); Urine Urobilinogen Negative (Negative); Urine White Blood Cell Absent (Absent)
[2019-07-19 08:33] LABS: Hematocrit 44 % (42-52); Hemoglobin 14.9 g/dL (14.0-18.0); Mean Corpuscular HGB Conc 34 g/dL (31-36); Mean Corpuscular Hemoglobin 34 pg (27-31); Mean Corpuscular Volume 102 fL (80-94); Mean Platelet Volume 8.6 fL (7.4-10.4); Platelet Count 183 10^3/uL (150-450); Red Blood Count 4.35 10^6 /uL (4.18-5.48); Red Cell Distribution Width 14 % (10-15); White Blood Count 2.4 10^3/uL (3.5-10.8)
[2019-07-19 08:38] VITALS: BP 173/81
[2019-07-19 08:49] LABS: Albumin 4.7 g/dL (3.2-5.2); Albumin/Globulin Ratio 1.7 (1-3); BUN/Creatinine Ratio 7.4 (8-20); Calcium 9.8 mg/dL (8.6-10.3); EGFR African American 70.5 (>60); EGFR Non-African American 58.2 (>60); Globulin 2.8 g/dL (2-4); Potassium 3.6 mmol/L (3.5-5.0); Total Bilirubin 0.5 mg/dL (0.2-1.0); Total Protein 7.5 g/dL (6.4-8.9)
== END 2019-07-19 08:37 | disposition home or self-care (01) ==
LOC: ED 07:04
DX: K59.00 Constipation, unspecified (principal); K62.89 Other specified diseases of anus and rectum; I10 Essential (primary) hypertension; F17.210 Nicotine dependence, cigarettes, uncomplicated; R19.8 Other specified symptoms and signs involving the digestive system and abdomen; D72.819 Decreased white blood cell count, unspecified
CPT/HCPCS: 36415; 80053; 81003; 81015; 85027; 99282

== ENCOUNTER 2019-07-23 10:49 | Emergency (ER) | payer MEDICARE, MEDICAID ==
[2019-07-23 11:37] VITALS: BP 162/92
--- NOTE | 2019-07-23 12:38 | UC ---
UC General HPI - HPI Summary HPI Summary: 74-year-old male who comes here with a complaint of constipation. He has been doing some [id number] medications and today he took a medication prescribed by his physician. He states he has had a bowel movement every day however it has been constipated. He states he feels like there's "a piece in there that is not coming out". Patient has used fleets enema yesterday and today with some success. He states today's first day he has taken the medicine his physician gave him. He denies any fever or chills, he denies actual abdominal pain stating just that he feels like he has some stool that hasn't come out yet. - History of Current Complaint Chief Complaint: UCGI Stated Complaint: CONSTIPATED Time Seen by Provider: 07/23/19 12:25 Hx Obtained From: Patient Onset/Duration: Gradual Onset Onset Severity: Mild Current Severity: None Pain Intensity: 10 Associated Signs & Symptoms: Positive: Other - Patient denies abdominal pain now. - Allergy/Home Medications Allergies/Adverse Reactions: Allergies Allergy/AdvReac Type Severity Reaction Status Date / Time aspirin Allergy Bleeding Verified 07/23/19 11:37 Home Medications: Home Medications Cyanocobalamin (Vitamin B-12) [Vitamin B-12] 1 tab PO DAILY 07/23/19 [History Confirmed 07/23/19] Docusate Sodium [Colace] 1 tab PO DAILY 07/23/19 [History Confirmed 07/23/19] Hemorrhoidal SUPP* [Preparation H Supp*] 1 dose VT ONCE PRN 07/23/19 [History Confirmed 07/23/19] Hydrocortisone [Preparation H] 1 dose VT ONCE PRN 07/23/19 [History Confirmed ] Prostate Medication 07/23/19 [History] PMH/Surg Hx/FS Hx/Imm Hx Previously Healthy: Yes - Surgical History Surgical History: Yes Surgery Procedure, Year, and Place: pt eyelid cut with ontiveros 20 years ago so had surgery to stich cut together - Family History Known Family History: Negative: Cardiac Disease, Hypertension, Diabetes, Respiratory Disease, Blood Disorder - Social History Alcohol Use: None Substance Use Type: Marijuana Substance Use Comment - Amount & Last Used: WILL REFRAIN UNTIL AFTER SURGERY Smoking Status (MU): Light Every Day Tobacco Smoker Type: Cigars Amount Used/How Often: 2-3 CIGARS/DAY 35 YRS Have You Smoked in the Last Year: Yes Household Exposure Type: Cigars Review of Systems All Other Systems Reviewed And Are Negative: Yes Gastrointestinal: Positive: Other - Patient denies abdominal pain he states he just feels like there is a piece of stool needed to come out. Is Patient Immunocompromised?: No Physical Exam Triage Information Reviewed: Yes Appearance: Well-Appearing, No Pain Distress, Well-Nourished Vital Signs: Initial Vital Signs Temp 99.7 F 07/23/19 11:28 Pulse 74 07/23/19 11:28 Resp 18 07/23/19 11:28 BP 162/92 07/23/19 11:28 Pulse Ox 98 07/23/19 11:28 Vital Signs Reviewed: Yes Respiratory: Positive: Lungs clear, Normal breath sounds, No respiratory distress, No accessory muscle use Cardiovascular: Positive: RRR, No Murmur, Pulses Normal, Brisk Capillary Refill Abdomen Description: Positive: Nontender, No Organomegaly, Soft. Negative: CVA Tenderness (R), CVA Tenderness (L), Distended, Guarding, Hepatomegaly, McBurney' s Point Tenderness, Splenomegaly Bowel Sounds: Positive: Hyperactive Musculoskeletal Exam: Normal Neurological Exam: Normal Psychological Exam: Normal Skin Exam: Normal Course/Dx - Course Course Of Treatment: The patient is comfortable here and pain-free. He states he took some medicine today that his doctor prescribed to have a bowel movement and he did say that he has had a bowel movement daily he just felt that he was constipated with some stool not completely coming out. He is taken fleets enemas at home. I advised him to increase fluids, drink some apple juice over the next few days, I advised him not to stress about this because he seems fairly anxious about being constipated. I advised him to wait until the medication takes affect today and he could do a fleets enema tomorrow if he has no bowel movement. He' s definitely to go to the emergency room if he has any abdominal pain, fever, chills, vomiting or worsening symptoms and definite follow-up with his primary care provider early next week with a possible referral to a analytical consultant if he continues to have problems with chronic constipation. He is agreeable to this plan of action. - Diagnoses Provider Diagnosis: Constipation Discharge ED - Sign-Out/Discharge Documenting (check all that apply): Patient Departure All imaging exams completed and their final reports reviewed: No Studies - Discharge Plan Condition: Good Disposition: HOME Patient Education Materials: Constipation (DC) Referrals: Kimberly Juarez MD [Primary Care Provider] - Additional Instructions: If you develop any worsening abdominal pain, fever, chills or vomiting go to the emergency room for further treatment. Definite follow-up with your primary care provider if you still feel like you are constipated on Friday. Use a fleets enema tomorrow if you have not had a bowel movement. Today wait for the medicine to work that you have already taken for constipation. Increase fluids and try drinking apple juice daily. - Billing Disposition and Condition Condition: GOOD Disposition: Home
== END 2019-07-23 12:45 | disposition home or self-care (01) ==
LOC: UCEAST 10:49
DX: K59.00 Constipation, unspecified (principal); F17.210 Nicotine dependence, cigarettes, uncomplicated; Z88.8 Allergy status to other drugs, medicaments and biological substances
CPT/HCPCS: 99211; G0463

== ENCOUNTER 2019-08-05 12:26 | Emergency (ER) | payer MEDICARE, MEDICAID ==
--- NOTE | 2019-08-05 12:52 | ED ---
Abdominal Pain/Male - HPI Summary HPI Summary: This patient is a 74 year old M presenting to ED with a chief complaint of lower abdominal pain described as pressure since six months ago. Patient states he thinks his prostate is too big and he has increased urge to urinate. He also reports feeling constipated. Patient reports pain when having bowel movements. Patient states he hydrates and takes Miralax daily. Patient was seen here two weeks ago for constipation and was given follow-up with GI. He saw GI, but they stated he did not have bowel impaction. The patient rates the pain 8/ 10 in severity. Symptoms aggravated by nothing. Symptoms alleviated by nothing. Patient denies fever. - History of Current Complaint Chief Complaint: EDGeneral Stated Complaint: GENERAL ILLNESS PER PT Time Seen by Provider: 08/05/19 12:31 Hx Obtained From: Patient Onset/Duration: Lasting Weeks - Since 6 months ago, Still Present Timing: Constant Severity Initially: Severe Severity Currently: Severe Pain Intensity: 8 Pain Scale Used: 0-10 Numeric Location: Other - Lower Character: Other: - Pressure Aggravating Factor(s): Nothing Alleviating Factor(s): Nothing Associated Signs And Symptoms: Positive: Constipation, Urinary Symptoms - Urge. Negative: Fever - Allergies/Home Medications Allergies/Adverse Reactions: Allergies Allergy/AdvReac Type Severity Reaction Status Date / Time aspirin Allergy Bleeding Verified 07/23/19 11:37 PMH/Surg Hx/FS Hx/Imm Hx Endocrine/Hematology History: Denies: Hx Diabetes Cardiovascular History: Reports: Hx Hypertension - ON DAILY MEDS Denies: Hx Pacemaker/ICD Respiratory History: Denies: Hx Asthma GI History: Reports: Other GI Disorders - Hemorrhoids History: Denies: Hx Renal Disease Musculoskeletal History: Reports: Hx Arthritis - HANDS, KNEES Sensory History: Reports: Hx Contacts or Glasses - WILL NOT BE WEARING DAY OF SURGERY Denies: Hx Legally Blind, Hx Deafness, Hx Hearing Aid Opthamlomology History: Reports: Hx Contacts or Glasses - WILL NOT BE WEARING DAY OF SURGERY Denies: Hx Legally Blind Psychiatric History: Denies: Hx Panic Disorder, Hx Suicide Attempt, Hx of Violent Episodes Against Others - Surgical History Surgery Procedure, Year, and Place: pt eyelid cut with ontiveros 20 years ago so had surgery to stich cut together. Hemorrhoidectomy Hx Anesthesia Reactions: No Infectious Disease History: No Infectious Disease History: Denies: Traveled Outside the US in Last 30 Days - Family History Known Family History: Negative: Cardiac Disease, Hypertension, Diabetes, Respiratory Disease, Blood Disorder - Social History Alcohol Use: None Hx Substance Use: Yes Substance Use Type: Reports: Marijuana Hx Tobacco Use: Yes - previous cig smoking, now cigars Smoking Status (MU): Light Every Day Tobacco Smoker Type: Cigars Amount Used/How Often: 2-3 CIGARS/DAY 35 YRS Have You Smoked in the Last Year: Yes Review of Systems Negative: Fever Gastrointestinal: Other - Constipation Positive: Abdominal Pain Genitourinary: Other - "Enlarged prostate" per pt All Other Systems Reviewed And Are Negative: Yes Physical Exam - Summary Physical Exam Summary: Constitutional: Thin, Alert. (-) Distressed Skin: Warm, Dry HENT: Normocephalic; Atraumatic Eyes: Conjunctiva normal Neck: Musculoskeletal ROM normal neck. (-) JVD, (-) Stridor, (-) Tracheal deviation Cardio: Rhythm regular, rate normal, Heart sounds normal; Intact distal pulses; The pedal pulses are 2+ and symmetric. Radial pulses are 2+ and symmetric. Pulmonary/Chest wall: Effort normal. (-) Respiratory distress, (-) Wheezes, (-) Rales Abd: Soft, (-) tenderness, (-) Distension, (-) Guarding, (-) Rebound Musculoskeletal: (-) Edema Neuro: Alert, Oriented x3 Psych: Mood and affect Normal Triage Information Reviewed: Yes Vital Signs On Initial Exam: Initial Vitals Temp Pulse Resp BP Pulse Ox 97.7 F 58 14 175/96 98 08/05/19 12:27 08/05/19 12:27 08/05/19 12:27 08/05/19 12:27 08/05/19 12:27 Vital Signs Reviewed: Yes Procedures - Sedation Patient Received Moderate/Deep Sedation with Procedure: No Diagnostics - Vital Signs Vital Signs Temp Pulse Resp BP Pulse Ox 08/05/19 12:27 97.7 F 58 14 175/96 98 - Laboratory Lab Statement: Any lab studies that have been ordered have been reviewed, and results considered in the medical decision making process. - Radiology Abdomen Radiology Interpretation Completed By: Radiologist Summary of Radiographic Findings: NONSPECIFIC BOWEL GAS PATTERN WITH A MODERATE AMOUNT OF STOOL THROUGHOUT THE COLON. Dr. Porter has reviewed this radiology report. Re-Evaluation - Re-Evaluation First Eval Re-Evaluation Time: 13:49 Comment: Discussed results with patient. Patient will be discharged home with dx of constipation. Patient understands and agrees with this plan. Abdominal Pain Male Course/Dx - Course Course Of Treatment: This patient is a 74 year old M presenting to ED with a chief complaint of lower abdominal pain since this morning. Patient urinated 152mL in the ED. Post-void residual bladder scan revealed 50mL of urine, suggesting the patient is not having urinary retention. Patient is very thin and does not look like he is eating well. Per patient, he saw GI and they did not find bowel impaction. Abdominal XR revealed NONSPECIFIC BOWEL GAS PATTERN WITH A MODERATE AMOUNT OF STOOL THROUGHOUT THE COLON. Because patient has no evidence of fecal impaction, I will give the patient magnesium citrate to take at home and discharge the patient home with dx of constipation. I instructed the patient to follow-up with his primary care physician who can decide if he needs a referral to GI. Patient understands and agrees with this plan. - Diagnoses Provider Diagnoses: Constipation Discharge ED - Sign-Out/Discharge Documenting (check all that apply): Patient Departure - Discharge - Discharge Plan Condition: Stable Disposition: HOME Patient Education Materials: Constipation (ED), High Fiber Diet (ED) Referrals: Kimberly Juarez MD [Primary Care Provider] - 3 Days Additional Instructions: Follow-up with your primary care physician in 2-3 days. RETURN TO THE ER FOR WORSENING OR CHANGING SYMPTOMS. - Billing Disposition and Condition Condition: STABLE Disposition: Home - Attestation Statements Document Initiated by Tim: Yes Documenting Scribe: Basil Leslie Provider For Whom Tim is Documenting (Include Credential): MD Jordon Srinivasanibshruti Attestation: Basil Johnson, scribed for Simon Porter MD on 08/05/19 at 1904. Scribe Documentation Reviewed: Yes Provider Attestation: The documentation as recorded by the Basil ahumada accurately reflects the service I personally performed and the decisions made by me, Simon Porter MD Status of Scribe Document: Viewed
[2019-08-05] MEDS ORDERED: Magnesium CITRATE* 300 ML BTL PO ONE (13:42)
[2019-08-05 13:51] VITALS: BP 170/90
== END 2019-08-05 13:55 | disposition home or self-care (01) ==
LOC: ED 12:26
DX: K59.00 Constipation, unspecified (principal); I10 Essential (primary) hypertension; N40.0 Benign prostatic hyperplasia without lower urinary tract symptoms; F17.290 Nicotine dependence, other tobacco product, uncomplicated; Z79.899 Other long term (current) drug therapy; Z88.6 Allergy status to analgesic agent
CPT/HCPCS: 74019; 99282; A9270-GY

== ENCOUNTER 2019-08-25 09:23 | Emergency (ER) | payer MEDICARE, MEDICAID ==
[2019-08-25 10:20] LABS: ABS Eosinophils 0.1 10^3/ul (0-0.6); ABS Monocytes 0.5 10^3/ul (0-0.8); ABS Neutrophils 1.5 10^3/ul (1.5-7.7); Eosinophil % 2.4 %; Hematocrit 42 % (42-52); Lymphocyte % 31.4 %; Mean Corpuscular HGB Conc 36 g/dL (31-36); Mean Corpuscular Hemoglobin 35 pg (27-31); Mean Corpuscular Volume 99 fL (80-94); Nucleated Red Blood Cells % 0.3; Platelet Count 202 10^3/uL (150-450); Red Blood Count 4.27 10^6 /uL (4.18-5.48); Red Cell Distribution Width 15 % (10-15); White Blood Count 3.1 10^3/uL (3.5-10.8)
[2019-08-25 10:26] LABS: INR 1.26 (0.82-1.09)
[2019-08-25 10:38] LABS: ALT 15 U/L (7-52); Albumin 4.9 g/dL (3.2-5.2); Albumin/Globulin Ratio 1.9 (1-3); Alkaline Phosphatase 70 U/L (34-104); BUN/Creatinine Ratio 9.9 (8-20); Blood Urea Nitrogen 11 mg/dL (6-24); CO2 Carbon Dioxide 25 mmol/L (22-32); Chloride 105 mmol/L (101-111); EGFR African American 78.6 (>60); EGFR Non-African American 64.9 (>60); Globulin 2.6 g/dL (2-4); Glucose 102 mg/dL (70-100); Sodium 137 mmol/L (135-145); Total Protein 7.5 g/dL (6.4-8.9)
--- OUTSIDE RECORDS SUMMARY | 2019-08-25 10:46 | XMS REPORT | Summary of Care ---
:1945 Author Organization [facility] Address [address] [address] Care Team Providers Name Role Phone Kimberly Juarez Primary Care Provider Reason for Referral Refer to Department Only (Routine) Status Reason Specialty Diagnoses / Referred By Referred To Procedures Contact Contact Authorized Hematology and Diagnoses Leukopenia, unspecified type Larry, Oncology MD Kimberly [address] [place] [address] Reason for Visit Reason Comments Transitional Care Management from [facility] for pelivic pain Encounter Details Date Type Department Care Team Description 08/18/2019 Office Visit [place] Larry, Chronic constipation ( Primary Dx); Practice MD Kimberly Leukopenia, unspecified type; [address] [facility] [address] [place] [address] [place] [address] [place] [address] [phone] Allergies Active Allergy Reactions Severity Noted Date Comments Aspirin 12/07/2008 Rectal Bleed documented as of this encounter (statuses as of 08/18/2019) Medications Medication Sig Dispensed Refills Start End Status Date Date MULTIVITAMINS PO Take by mouth. 0 Active polyethylene Take 17 g by 3 Bottle 1 Active glycol (MIRALAX) mouth DAILY AT 8 Oral Powder 1400. B Complex Vitamins Take by mouth 0 [...] DAILY NEEDED (pain). metoprolol TAKE 1 TABLET 180 Tab 1 Active (LOPRESSOR) 100 MG BY MOUTH TWICE 9 Oral Tab DAILY lactulose Take 15 mL by 450 mL 1 Active (CEPHULAC) 10 mouth TWO TIMES 9 GM/15ML Oral DAILY NEEDED Solution (constipation). tramadol (ULTRAM) TAKE 1 TABLET 60 Tab 0 Discontinued 50 MG Oral BY MOUTH EVERY 8 019 TabIndications: 8 HOURS Other chronic pain NEEDED FOR PAIN (MAX 3 TABS DAILY) lisinopril TAKE 1 TABLET 90 Tab 1 Discontinued (PRINIVIL, BY MOUTH ONCE 9 019 ZESTRIL) 40 MG DAILY Oral Tab documented as of this encounter (statuses as of 08/18/2019) Active Problems Problem Noted Date Hyperplastic colonic polyp 10/06/2018 Abdominal mass 03/14/2017 Benign hypertension 03/14/2017 Lower GI bleed 03/14/2017 Right knee pain 08/14/2016 Illiteracy 06/06/2014 B12 deficiency 07/08/2012 Hyperlipidemia 12/07/2008 Osteoarthritis 12/07/2008 Diverticulosis 12/07/2008 Overview: S/P colonoscopy, 2005. Low back pain 12/07/2008 HTN (hypertension) AR (aortic regurgitation) Overview: mild to moderate documented as of this encounter (statuses as of 08/18/2019) Immunizations Name Administration Dates Next Due Influenza [...] Sign Reading Time Taken Comments Blood Pressure 132/60 08/18/2019 11:26 AM EST Pulse 68 08/18/2019 11:26 AM EST Temperature 36.4 08/18/2019 11:26 AM C (97.6 EST F) Respiratory Rate - - Oxygen Saturation 95% 08/18/2019 11:26 AM EST Inhaled Oxygen Concentration - - Weight 59.3 kg (130 lb 12.8 oz) 08/18/2019 11:26 AM EST Height 167.6 cm (5' 6") 08/18/2019 11:26 AM EST Body Mass Index 21.11 08/18/2019 11:26 AM EST documented in this encounter Patient Instructions Patient InstructionsKimberly Juarez MD - 08/18/2019 11:00 AM EST1. Schedule appointment with hematology 2. Take Lactulose 15 cc 2 times a day for constipation. Hold for diarrhea 3. Follow up in 2 weeks and as needed documented in this encounter Progress Notes Kimberly Juarez MD - 08/18/2019 11:00 AM EST Patient: Adrián Kumar Date of Service: 08/18/2019 Subjective: Adrián Kumar is a 74-y.o. male who presents for Chief Complaint Patient presents with Transitional Care Management from [facility] for pelivic pain TCM Statement. I am seeing for transition of care following several evaluations at [facility] ER. Last - 08/05/19 The discharge diagnosis was Constipation. Has long history of constipation, but recently was having more problems, some lower abdominal pain, gassiness, very hard stool CT of abdomen and pelvis done 07/15/19: bilateral adrenal hyperplasia, cystic lesion in the pancreastail, stable (benign biopsy in 05/2019) CBC - chronic leukopenia, CMP - slightly elevated creatinine, stable Coordination of care. (delete one and this phrase) - I am satisfied that appropriate referrals are in place to deal with the problems identified during hospitalization, and that the patient has adequate community resources and support in place. - Additional testing related to hospitalization was requested today: no See orders. I confirmed the patient's understanding of the diagnosis and plan of care. Specific education that was provided today: Patient Instructions 1. Schedule appointment with hematology 2. Take Lactulose 15 cc 2 times a day for constipation. Hold for diarrhea 3. Follow up in 2 weeks and as needed The current and discharge medications were reconciled by me, today The source document was hospital discharge summary Continues to feel constipated. Has hard BM's every day. Lost some weight Denies nausea/vomiting. Last Colonoscopy 07/01/19 - no abnormal findings, but poor prep- Past Medical History: Diagnosis Date AR (aortic regurgitation) mild to moderate B12 deficiency 07/08/2012 Diverticulosis 12/07/2008 S/P colonoscopy, 2005. HTN (hypertension) Hyperlipidemia 12/07/2008 Hypertension Low back pain 12/07/2008 Osteoarthritis 12/07/2008 Outpatient Medications as of 08/18/2019 Medication Sig Dispense Refill B Complex Vitamins [...] Tab by mouth DAILY. 30 Tab 0 metoprolol (LOPRESSOR) 100 MG Oral Tab TAKE 1 TABLET BY MOUTH TWICE DAILY 180 Tab 1 MULTIVITAMINS PO Take by mouth. Nitroglycerin (RECTIV) [...] current facility-administered medications on file as of 08/18/2019. Allergies Allergen Reactions Aspirin Rectal Bleed Review of Systems: All remaining review of systems was negative. Objective: BP 132/60 (BP Location: Left arm, Patient Position: Sitting) Pulse 68 Temp 97.6 F (36.4 C) Ht 5' 6" (1.676 m) Wt 130 lb 12.8 oz (59.3 kg) SpO2 95 % BMI 21.11 kg/m2 GENERAL: alert, no distress THROAT: lips, mucosa, and tongue normal: teeth and gums normal NECK: supple, symmetrical, trachea midline and no adenopathy LUNGS: clear to auscultation bilaterally CVS exam: normal rate, regular rhythm, normal S1, S2, no murmurs, rubs, clicks or gallops. ABDOMEN: soft, tender in LLQ area. Bowel sounds normal. No masses, no organomegaly Rectal exam: negative without mass, lesions or tenderness, external hemorrhoids noted, no impaction. ICD-9-CM ICD-10-CM 1. Chronic constipation 564.00 K59.09 2. Leukopenia, unspecified type Was referred to hematology 1 year ago, but didn't schedule an appointment. Advised 288.50 D72.819 REFER TO HEMATOLOGY / ONCOLOGY 3. Weight loss 783.21 R63.4 XR CHEST 2 VIEW PA AND LATERAL (STANDARD) Patient Instructions 1. Schedule appointment with hematology 2. Take Lactulose 15 cc 2 times a day for constipation. Hold for diarrhea 3. Follow up in 2 weeks and as needed Author: Kimberly Juarez MD documented in this encounter Plan of Treatment Date Type Specialty Care Team Description 09/01/2019 Office Visit Family [facility] Kimberly Juarez MD [address] [place] [address] [phone] Name Type Priority Associated Diagnoses Order Schedule XR CHEST 2 VIEW PA AND Imaging Routine Weight loss Expected: 08/18/2019, LATERAL (STANDARD) Expires: 08/17/2020 Name Type Priority Associated Diagnoses Order Schedule REFER TO HEMATOLOGY / Referral Routine Leukopenia, unspecified Expected: ONCOLOGY type 08/18/2019, Expires: 08/18/2020 Health Maintenance Due Date Last Done Comments LIPID DISORDER SCREENING 03/06/2020 03/06/2019, 10/01/2017, 08/12/2016, Additional history exists DEPRESSION SCREENING 03/26/2020 03/26/2019, 03/26/2019 FALL RISK ASSESSMENT 03/26/2020 03/26/2019, 03/26/2019 MEDICARE ANNUAL WELLNESS 03/26/2020 03/26/2019, 03/22/2015, VISIT 03/22/2015, Additional history exists ZOSTER IMMUNIZATION SERIES 08/18/2020 04/30/2017 Postponed from (2 of 3) 06/25/2017 (Vaccine not available) Colonoscopy 07/01/2024 07/01/2019, 07/01/2019, 07/31/2017, Additional history exists [...] Problems Progress Blood Pressure Blood Pressure HTN 132/60 No Larry, < 140/90 (hypertension) (08/18/2019 Kimberly, 11:26 AM EST) Note: Hypertension Care Plan Based on the [...] Educational Resources. record my blood pressure results. eGfranc[employer]orie is safe and secure way for you to do this in your medical record online. limit alcohol consumption. For men two drinks per day and women one drink per day. if currently smoking, will discuss how to quit smoking with my healthcare provider and work towards quitting. Educational Resources: National Heart, Lung, & Blood [place] http://nhlbi.nih.gov/hbp/index.html The DASH Diet Eating Plan http://www.nhlbi.nih.gov/health/health-topics/ topics/dash/ Academy of Nutrition & DIetetics http://eatright.org National Smoking Cessation Site http://smokefree.gov Blood Pressure < Blood Pressure 132/60 (08/18/2019 Kimberly Read, 150/90 11:26 AM EST) Note: This is an individualized treatment (blood [...] filedocumented in this encounter Visit Diagnoses Diagnosis Chronic constipation - Primary Unspecified constipation Leukopenia, unspecified type Weight loss Loss of weight documented in this encounter Insurance Payer Benefit Plan / Subscriber ID Effective Dates Phone Address Type Group AETNA MEDICARE AETNA MEDICARE xxxxxxxx 2019-Christian [employer] ADV[employer]AGE SANYA-DEANGELO Yeung([id number] ) MEDICAID [facility] xxxxxxxx Effective for Medicaid [place] MEDICAID all dates Guarantor Name Account Type Relation to Date of Phone Billing Address Patient Charlie Personal/Famil 1945 [address] Adrián Kumar (Home) [address] [phone] [place], [place] (Work) [id number] documented as of this encounter Advance Directives Type Date Recorded 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 yes Order discussed with: Patient I discussed all options and patient/surrogate requested and agreed to: Full Code
[2019-08-25 11:07] LABS: Anion Gap 7 mmol/L (2-11)
[2019-08-25 11:47] VITALS: BP 142/94
--- NOTE | 2019-08-25 11:52 | ED ---
Abdominal Pain/Male - HPI Summary HPI Summary: Pt. is a 74 y.o male who presents to the ER for ongoing constipation x several weeks. Pt. has been seen in the ER numerous times for similar complaints over the last few months. Pt. currently taking lactulose daily and miralax and enemas as needed. Pt. states he had a bowel movement today but was concerned because there was bright red blood. Pt. notes he had a colonoscopy a few months ago at [place] which he states was normal. Pt. otherwise denies CP, SOB, vomiting, urinary sxs. Sxs are mild to moderate in severity. No current modifying factors. Is not anticoagulated. - History of Current Complaint Chief Complaint: EDGIBleed Stated Complaint: RECTAL BLEEDING PER PT Time Seen by Provider: 08/25/19 09:44 Hx Obtained From: Patient Pain Intensity: 3 Pain Scale Used: 0-10 Numeric - Allergies/Home Medications Allergies/Adverse Reactions: Allergies Allergy/AdvReac Type Severity Reaction Status Date / Time aspirin Allergy Bleeding Verified 08/25/19 09:29 Home Medications: Home Medications Hydrocortisone 2.5% CREAM(NF) 1 applic TOPICAL TID PRN 08/25/19 [History Confirmed 08/25/19] Lactulose* 15 ml PO BID 08/25/19 [History Confirmed 08/25/19] Metoprolol Tartrate TAB* [Lopressor TAB*] 100 mg PO BID 08/25/19 [History Confirmed 08/25/19] Nitroglycerin 0.4% Rectal Oint 1 applic AR Q12H PRN 08/25/19 [History Confirmed 08/25/19] Vitamin B Complex TAB* [B Complex-50*] 1 tab PO DAILY 08/25/19 [History Confirmed 08/25/19] PMH/Surg Hx/FS Hx/Imm Hx Previously Healthy: Yes Endocrine/Hematology History: Denies: Hx Diabetes Cardiovascular History: Reports: Hx Hypertension - ON DAILY MEDS Denies: Hx Pacemaker/ICD Respiratory History: Denies: Hx Asthma GI History: Reports: Other GI Disorders - Hemorrhoids History: Denies: Hx Renal Disease Musculoskeletal History: Reports: Hx Arthritis - HANDS, KNEES Sensory History: Reports: Hx Contacts or Glasses - WILL NOT BE WEARING DAY OF SURGERY Denies: Hx Legally Blind, Hx Deafness, Hx Hearing Aid Opthamlomology History: Reports: Hx Contacts or Glasses - WILL NOT BE WEARING DAY OF SURGERY Denies: Hx Legally Blind Psychiatric History: Denies: Hx Panic Disorder, Hx Suicide Attempt, Hx of Violent Episodes Against Others - Surgical History Surgery Procedure, Year, and Place: pt eyelid cut with ontiveros 20 years ago so had surgery to stich cut together. Hemorrhoidectomy Hx Anesthesia Reactions: No Infectious Disease History: No Infectious Disease History: Denies: Traveled Outside the US in Last 30 Days - Family History Known Family History: Positive: Non-Contributory Negative: Cardiac Disease, Hypertension, Diabetes, Respiratory Disease, Blood Disorder - Social History Occupation: Retired Lives: With Family Alcohol Use: None Hx Substance Use: Yes Substance Use Type: Reports: Marijuana Substance Use Comment - Amount & Last Used: WILL REFRAIN UNTIL AFTER SURGERY Hx Tobacco Use: Yes - previous cig smoking, now cigars Smoking Status (MU): Light Every Day Tobacco Smoker Type: Cigars Amount Used/How Often: 2-3 CIGARS/DAY 35 YRS Have You Smoked in the Last Year: Yes Review of Systems Constitutional: Negative Negative: Fever Cardiovascular: Negative Negative: Chest Pain Respiratory: Negative Negative: Shortness Of Breath Positive: Other - Lower abd. pain and bloating. Constipation. Genitourinary: Negative Neurological: Negative All Other Systems Reviewed And Are Negative: Yes Physical Exam Triage Information Reviewed: Yes Vital Signs On Initial Exam: Initial Vitals Temp Pulse Resp BP Pulse Ox 97.8 F 68 16 170/90 98 08/25/19 09:24 08/25/19 09:24 08/25/19 09:24 08/25/19 09:24 08/25/19 09:24 Vital Signs Reviewed: Yes Appearance: Positive: Well-Appearing - Pt. sitting up in bed in NAD. Skin: Positive: Warm, Dry Head/Face: Positive: Normal Head/Face Inspection Eyes: Positive: Normal, EOMI Neck: Positive: Supple Respiratory/Lung Sounds: Positive: Clear to Auscultation, Breath Sounds Present Cardiovascular: Positive: Normal, RRR Abdomen Description: Positive: Other: - Abd. is soft with minimal suprapubic discomfort. Rectal exam performed with pt's nurseDevonte: small nonthrombosed external hemorrhoids noted. Internal hemorrhoids noted as well. YUMIKO reveals no stool in the lower vault. No blood noted. Neurological: Positive: Normal, CN Intact II-III Psychiatric: Positive: Affect/Mood Appropriate Procedures - Sedation Patient Received Moderate/Deep Sedation with Procedure: No Diagnostics - Vital Signs Vital Signs Temp Pulse Resp BP Pulse Ox 08/25/19 11:46 97.6 F 75 18 142/94 98 08/25/19 11:18 67 96 08/25/19 11:17 67 155/87 96 08/25/19 10:01 73 99 08/25/19 09:58 157/97 08/25/19 09:24 97.8 F 68 16 170/90 98 - Laboratory Lab Results: Lab Results 08/25/19 08/25/19 08/25/19 Range/Units 10:10 10:10 10:10 WBC 3.1 L (3.5-10.8) 10^3/uL RBC 4.27 (4.18-5.48) 10^6 /uL Hgb 15.0 (14.0-18.0) g/dL Hct 42 (42-52) % MCV 99 H (80-94) fL MCH 35 H (27-31) pg MCHC 36 (31-36) g/dL RDW 15 (10-15) % Plt Count 202 (150-450) 10^3/uL MPV 9.0 (7.4-10.4) fL Neut % (Auto) 49.2 % Lymph % (Auto) 31.4 % [place] % (Auto) 16.2 % Eos % (Auto) 2.4 % Baso % (Auto) 0.8 % Absolute Neuts (auto) 1.5 (1.5-7.7) 10^3/ul Absolute Lymphs (auto) 1.0 (1.0-4.8) 10^3/ul Absolute Monos (auto) 0.5 (0-0.8) 10^3/ul Absolute Eos (auto) 0.1 (0-0.6) 10^3/ul Absolute Basos (auto) 0.0 (0-0.2) 10^3/ul Absolute Nucleated RBC 0.0 10^3/ul Nucleated RBC % 0.3 INR (Anticoag Therapy) 1.26 H (0.82-1.09) Sodium 137 (135-145) mmol/L Potassium TNP Chloride 105 (101-111) mmol/L Carbon Dioxide 25 (22-32) mmol/L Anion Gap 7 (2-11) mmol/L BUN 11 (6-24) mg/dL Creatinine 1.11 (0.67-1.17) mg/dL Est GFR ( Amer) 78.6 (>60) Est GFR (Non-Af Amer) 64.9 (>60) BUN/Creatinine Ratio 9.9 (8-20) Glucose 102 H (70-100) mg/dL Calcium 10.0 (8.6-10.3) mg/dL Total Bilirubin 0.70 (0.2-1.0) mg/dL AST TNP ALT 15 (7-52) U/L Alkaline Phosphatase 70 (34-104) U/L Total Protein 7.5 (6.4-8.9) g/dL Albumin 4.9 (3.2-5.2) g/dL Globulin 2.6 (2-4) g/dL Albumin/Globulin Ratio 1.9 (1-3) Result Diagrams: 08/25/19 10:10 08/25/19 10:10 Lab Statement: Any lab studies that have been ordered have been reviewed, and results considered in the medical decision making process. Abdominal Pain Male Course/Dx - Course Course Of Treatment: Pt. presenting with ongoing constipation and an episode of blood stool today. he is afebrile and well appearing. Benign abd. exam. No blood noted on exam. Pt. had abd. CT a few months ago. Basic labs and xr obtained. CBC notes chronic leukopenia that pt. follows with hematology. H and H stable. Xray negative for signs of obstruction. Occult blood is negative. Results discussed and pt. reassured. Will have him f.u with his PCP and return to er if sxs change or worsen. Pt. understands and agrees with plan. - Diagnoses Differential Diagnosis/HQI/PQRI: Bowel Obstruction, Constipation Provider Diagnoses: Constipation Discharge ED - Sign-Out/Discharge Documenting (check all that apply): Patient Departure - Discharge Plan Condition: Good Disposition: HOME Patient Education Materials: Constipation (ED), High Fiber Diet (ED) Referrals: Kimberly Juarez MD [Primary Care Provider] - Additional Instructions: Please call your PCP today for a close follow up appointment Increase fluids and fiber in diet Continue home medication as directed Return to ER if symptoms change or worsen - Billing Disposition and Condition Condition: GOOD Disposition: Home
== END 2019-08-25 11:46 | disposition home or self-care (01) ==
LOC: ED 09:23
DX: K59.00 Constipation, unspecified (principal); Z79.899 Other long term (current) drug therapy; Z88.8 Allergy status to other drugs, medicaments and biological substances
CPT/HCPCS: 36415; 74018; 80053; 82272; 85025; 85610; 99283

== ENCOUNTER 2019-09-10 09:00 | Emergency (ER) | payer MEDICARE, MEDICAID ==
--- NOTE | 2019-09-10 09:48 | ED ---
GI/ HPI - HPI Summary HPI Summary: This patient is a 74 year old male presenting to [facility] with a chief complaint of rectal pain and constipation since 3 days ago. He states he has seen blood in his stool 2 times. He reports lower abdominal pain. His GI physician recently removed a hemorrhoid. He has a Hx of constipation. He was recently started on a new medication from his PCP that he states is helping, however right now he states he has the feeling of something stuck in his rectum, something he states he has not felt before. Pt denies any fever, chills, erythema of eyes, sore throat, CP, SOB, cough, N/V, dysuria, hematuria, myalgia , edema, rash, or dizziness. - History of Current Complaint Chief Complaint: EDRectalPain Time Seen by Provider: 09/10/19 09:21 Stated Complaint: RECTAL BLEEDING Hx Obtained From: Patient Onset/Duration: Started Days Ago Timing: Constant Pain Intensity: 10 Location of Pain: RLQ, LLQ - Allergy/Home Medications Allergies/Adverse Reactions: Allergies Allergy/AdvReac Type Severity Reaction Status Date / Time aspirin Allergy Bleeding Verified 09/10/19 09:12 PMH/Surg Hx/FS Hx/Imm Hx Endocrine/Hematology History: Denies: Hx Diabetes Cardiovascular History: Reports: Hx Hypertension - ON DAILY MEDS Denies: Hx Pacemaker/ICD Respiratory History: Denies: Hx Asthma GI History: Reports: Other GI Disorders - Hemorrhoids History: Denies: Hx Renal Disease Musculoskeletal History: Reports: Hx Arthritis - HANDS, KNEES Sensory History: Reports: Hx Contacts or Glasses - WILL NOT BE WEARING DAY OF SURGERY Denies: Hx Legally Blind, Hx Deafness, Hx Hearing Aid Opthamlomology History: Reports: Hx Contacts or Glasses - WILL NOT BE WEARING DAY OF SURGERY Denies: Hx Legally Blind Psychiatric History: Denies: Hx Panic Disorder, Hx Suicide Attempt, Hx of Violent Episodes Against Others - Surgical History Surgery Procedure, Year, and Place: pt eyelid cut with ontiveros 20 years ago so had surgery to stich cut together. Hemorrhoidectomy Hx Anesthesia Reactions: No Infectious Disease History: No Infectious Disease History: Denies: Traveled Outside the [place] in Last 30 Days - Family History Known Family History: Negative: Cardiac Disease, Hypertension, Diabetes, Respiratory Disease, Blood Disorder - Social History Alcohol Use: None Hx Substance Use: Yes Substance Use Type: Reports: Marijuana Substance Use Comment - Amount & Last Used: WILL REFRAIN UNTIL AFTER SURGERY Hx Tobacco Use: Yes - previous cig smoking, now cigars Smoking Status (MU): Light Every Day Tobacco Smoker Type: Cigars Amount Used/How Often: 2-3 CIGARS/DAY 35 YRS Have You Smoked in the Last Year: Yes Review of Systems Negative: Fever, Chills Negative: Erythema Negative: Sore Throat Negative: Chest Pain Negative: Shortness Of Breath, Cough Positive: Abdominal Pain, Other - Constipation, rectal bleeding. Negative: Vomiting, Nausea Negative: dysuria, hematuria Negative: Myalgia, Edema Neurological: Other - Neg: Dizziness All Other Systems Reviewed And Are Negative: No Physical Exam - Summary Physical Exam Summary: Constitutional: Well-developed, Well-nourished, Alert. (-) Distressed Skin: Warm, Dry HENT: Normocephalic; Atraumatic Eyes: Conjunctiva normal Neck: Musculoskeletal ROM normal neck. (-) JVD, (-) Stridor, (-) Tracheal deviation Cardio: Rhythm regular, rate normal, Heart sounds normal; Intact distal pulses; The pedal pulses are 2+ and symmetric. Radial pulses are 2+ and symmetric. (-) Murmur Pulmonary/Chest wall: Effort normal. (-) Respiratory distress, (-) Wheezes, (-) Rales Abd: Soft, (-) tenderness, (-) Distension, (-) Guarding, (-) Rebound Musculoskeletal: (-) Edema Lymph: (-) Cervical adenopathy Neuro: Alert, Oriented x3 Psych: Mood and affect Normal Rectal: [employer] Bethany present. Empty rectal vault. No fecal impaction. Triage Information Reviewed: Yes Vital Signs On Initial Exam: Initial Vitals Temp Pulse Resp BP Pulse Ox 98.4 F 65 16 172/91 98 09/10/19 09:10 09/10/19 09:10 09/10/19 09:10 09/10/19 09:10 09/10/19 09:10 Vital Signs Reviewed: Yes Procedures - Sedation Patient Received Moderate/Deep Sedation with Procedure: No Diagnostics - Vital Signs Vital Signs Temp Pulse Resp BP Pulse Ox 09/10/19 09:10 98.4 F 65 16 172/91 98 - Laboratory Result Diagrams: 09/10/19 09:57 09/10/19 09:57 Lab Statement: Any lab studies that have been ordered have been reviewed, and results considered in the medical decision making process. GIGU Course/Dx - Course Course Of Treatment: This patient is a 74 year old male presenting to [facility] with a chief complaint of rectal pain and constipation since 3 days ago. Rectal exam was unremarkable. The patient will be instructed to follow up to manage his chronic constipation. A plan for discharge was discussed with the patient and he was agreeable with this plan. - Diagnoses Provider Diagnoses: Tenesmus, Chronic constipation Discharge ED - Sign-Out/Discharge Documenting (check all that apply): Patient Departure - Discharge - Discharge Plan Condition: Stable Disposition: HOME Patient Education Materials: Constipation (ED) Referrals: Kimberly Juarez MD [Primary Care Provider] - 3 Days Jefferson Rod MD [Medical Doctor] - 1 Week Additional Instructions: Continue with high fiber diet and plenty of water. Continue with bowel regimen. - Attestation Statements Document Initiated by Scribe: Yes Documenting Scribe: Deejay Daly Provider For Whom Scribe is Documenting (Include Credential): Catrachito Valentin MD Scribe Attestation: Deejay Johnson, scribed for Catrachito Valentin MD on 09/10/19 at 1057. Status of Scribe Document: Ready
[2019-09-10 10:06] LABS: Hematocrit 45 % (42-52); Hemoglobin 15.6 g/dL (14.0-18.0); Mean Corpuscular HGB Conc 35 g/dL (31-36); Mean Corpuscular Hemoglobin 35 pg (27-31); Mean Corpuscular Volume 100 fL (80-94); Mean Platelet Volume 8.5 fL (7.4-10.4); Platelet Count 255 10^3/uL (150-450); Red Blood Count 4.48 10^6 /uL (4.18-5.48); Red Cell Distribution Width 15 % (10-15); White Blood Count 3.6 10^3/uL (3.5-10.8)
[2019-09-10 10:29] LABS: Albumin 5.4 g/dL (3.2-5.2); Albumin/Globulin Ratio 1.9 (1-3); Calcium 10.3 mg/dL (8.6-10.3); EGFR African American 63.2 (>60); EGFR Non-African American 52.3 (>60); Globulin 2.8 g/dL (2-4); Potassium 3.9 mmol/L (3.5-5.0); Total Bilirubin 0.7 mg/dL (0.2-1.0); Total Protein 8.2 g/dL (6.4-8.9)
[2019-09-10 12:02] VITALS: BP 141/93
== END 2019-09-10 11:22 | disposition home or self-care (01) ==
LOC: ED 09:00
DX: R19.8 Other specified symptoms and signs involving the digestive system and abdomen (principal); K59.09 Other constipation; R10.31 Right lower quadrant pain; R10.32 Left lower quadrant pain; I10 Essential (primary) hypertension; Z88.6 Allergy status to analgesic agent; F17.290 Nicotine dependence, other tobacco product, uncomplicated
CPT/HCPCS: 36415; 80053; 85027; 99283

== ENCOUNTER 2019-09-11 15:09 | Emergency (ER) | payer MEDICARE, MEDICAID ==
--- NOTE | 2019-09-11 17:55 | ED ---
Abdominal Pain/Male - HPI Summary HPI Summary: Patient complains of abdominal pain, constipation times a few days. Seen here yesterday for same symptoms. States abdominal pain is worse, and states it is more difficult to urinate now. States he had a very small bowel movement today. Denies blood in stool or urine today, though states he had blood in stool yesterday. Patient took lactulose 2 today. Denies fever, cough, sore throat, CP, SOB, N/V/D, penile or testicular symptoms. - History of Current Complaint Chief Complaint: EDConstipation Stated Complaint: CONSPATION Time Seen by Provider: 09/11/19 17:49 Hx Obtained From: Patient Onset/Duration: Gradual Onset, Lasting Days Timing: Constant Severity Initially: Moderate Severity Currently: Severe Pain Intensity: 10 Pain Scale Used: 0-10 Numeric Location: Diffuse Radiates: No Character: Dull, Cramping Aggravating Factor(s): Nothing Alleviating Factor(s): Nothing Associated Signs And Symptoms: Positive: Negative - Allergies/Home Medications Allergies/Adverse Reactions: Allergies Allergy/AdvReac Type Severity Reaction Status Date / Time aspirin Allergy Bleeding Verified 09/11/19 15:21 PMH/Surg Hx/FS Hx/Imm Hx Endocrine/Hematology History: Denies: Hx Diabetes Cardiovascular History: Reports: Hx Hypertension - ON DAILY MEDS Denies: Hx Pacemaker/ICD Respiratory History: Denies: Hx Asthma GI History: Reports: Other GI Disorders - Hemorrhoids History: Denies: Hx Renal Disease Musculoskeletal History: Reports: Hx Arthritis - HANDS, KNEES Sensory History: Reports: Hx Contacts or Glasses - WILL NOT BE WEARING DAY OF SURGERY Denies: Hx Legally Blind, Hx Deafness, Hx Hearing Aid Opthamlomology History: Reports: Hx Contacts or Glasses - WILL NOT BE WEARING DAY OF SURGERY Denies: Hx Legally Blind EENT History: Denies: Hx Deafness Neurological History: Denies: Hx Dementia Psychiatric History: Denies: Hx Panic Disorder, Hx Suicide Attempt, Hx of Violent Episodes Against Others - Surgical History Surgery Procedure, Year, and Place: pt eyelid cut with ontiveros 20 years ago so had surgery to stich cut together. Hemorrhoidectomy Hx Anesthesia Reactions: No Infectious Disease History: No Infectious Disease History: Denies: Traveled Outside the [place] in Last 30 Days - Family History Known Family History: Negative: Cardiac Disease, Hypertension, Diabetes, Respiratory Disease, Blood Disorder - Social History Alcohol Use: None Hx Substance Use: Yes Substance Use Type: Reports: Marijuana Substance Use Comment - Amount & Last Used: WILL REFRAIN UNTIL AFTER SURGERY Hx Tobacco Use: Yes - previous cig smoking, now cigars Smoking Status (MU): Light Every Day Tobacco Smoker Type: Cigars Amount Used/How Often: 2-3 CIGARS/DAY 35 YRS Have You Smoked in the Last Year: Yes Review of Systems Constitutional: Negative Eyes: Negative ENT: Negative Cardiovascular: Negative Respiratory: Negative Positive: Abdominal Pain Positive: dysuria Musculoskeletal: Negative Skin: Negative Neurological: Negative Psychological: Normal All Other Systems Reviewed And Are Negative: Yes Physical Exam - Summary Physical Exam Summary: Abdomen soft nontender. Triage Information Reviewed: Yes Vital Signs On Initial Exam: Initial Vitals Temp Pulse Resp BP Pulse Ox 98.2 F 74 16 161/85 96 09/11/19 15:19 09/11/19 15:19 09/11/19 15:19 09/11/19 15:19 09/11/19 15:19 Vital Signs Reviewed: Yes Appearance: Positive: Well-Appearing Skin: Positive: Warm Head/Face: Positive: Normal Head/Face Inspection Eyes: Positive: Normal Neck: Positive: Supple Respiratory/Lung Sounds: Positive: Clear to Auscultation Cardiovascular: Positive: Normal Abdomen Description: Positive: Nontender Musculoskeletal: Positive: Normal Neurological: Positive: Normal Psychiatric: Positive: Normal AVPU Assessment: Alert - Jed Coma Scale Best Eye Response: 4 - Spontaneous Best Motor Response: 6 - Obeys Commands Best Verbal Response: 5 - Oriented Coma Scale Total: 15 Procedures - Sedation Patient Received Moderate/Deep Sedation with Procedure: No Diagnostics - Vital Signs Vital Signs Temp Pulse Resp BP Pulse Ox 09/11/19 17:07 99.1 F 95 16 173/113 97 09/11/19 15:19 98.2 F 74 16 161/85 96 - Laboratory Result Diagrams: 09/11/19 18:37 09/11/19 18:37 Lab Statement: Any lab studies that have been ordered have been reviewed, and results considered in the medical decision making process. Abdominal Pain Male Course/Dx - Course Course Of Treatment: Patient complains of abdominal pain, constipation times a few days. Seen here yesterday for same symptoms. States abdominal pain is worse, and states it is more difficult to urinate now. States he had a very small bowel movement today. Denies blood in stool or urine today, though states he had blood in stool yesterday. Patient took lactulose 2 today. Denies fever, cough, sore throat, CP, SOB, N/V/D, penile or testicular symptoms. Vital signs within normal limits. Labs unremarkable or outpatient baseline. - Diagnoses Provider Diagnoses: Constipation Discharge ED - Sign-Out/Discharge Documenting (check all that apply): Patient Departure - Discharge Plan Condition: Stable Disposition: HOME Prescriptions: Magnesium CITRATE* [Citrate of Magnesia*] 150 ml PO ONCE #1 btl Patient Education Materials: Constipation (ED) Referrals: Kimberly Juarez MD [Primary Care Provider] - Additional Instructions: Take magnesium citrate 150 ML's at home. Bowel movement does not start within an hour take the next 150 ML's drink plenty of fluids to maintain hydration. Follow-up with primary care. Return to the ED for any new or worsening symptoms - Billing Disposition and Condition Condition: STABLE Disposition: Home
[2019-09-11] MEDS ORDERED: NS 0.9% 1000 ML** 1,000 ML IV ONE (18:33)
[2019-09-11 18:51] LABS: ABS Lymphocytes 1.3 10^3/ul (1.0-4.8); ABS Monocytes 0.6 10^3/ul (0-0.8); ABS Neutrophils 1.7 10^3/ul (1.5-7.7); Eosinophil % 0.9 %; Hematocrit 41 % (42-52); Hemoglobin 14.3 g/dL (14.0-18.0); Lymphocyte % 35.5 %; Mean Corpuscular HGB Conc 35 g/dL (31-36); Mean Corpuscular Hemoglobin 35 pg (27-31); Mean Corpuscular Volume 100 fL (80-94); Mean Platelet Volume 8.5 fL (7.4-10.4); Platelet Count 217 10^3/uL (150-450); Red Blood Count 4.11 10^6 /uL (4.18-5.48); Red Cell Distribution Width 16 % (10-15); White Blood Count 3.6 10^3/uL (3.5-10.8)
[2019-09-11 19:02] LABS: ALT 12 U/L (7-52); AST 15 U/L (13-39); Albumin 4.8 g/dL (3.2-5.2); Albumin/Globulin Ratio 1.8 (1-3); Alkaline Phosphatase 66 U/L (34-104); Anion Gap 6 mmol/L (2-11); BUN/Creatinine Ratio 5.7 (8-20); Blood Urea Nitrogen 7 mg/dL (6-24); C Reactive Protein < 1.00 mg/L (<8.01); CO2 Carbon Dioxide 26 mmol/L (22-32); Calcium 9.8 mg/dL (8.6-10.3); Chloride 105 mmol/L (101-111); EGFR African American 69.8 (>60); EGFR Non-African American 57.7 (>60); Globulin 2.7 g/dL (2-4); Glucose 93 mg/dL (70-100); Potassium 3.6 mmol/L (3.5-5.0); Sodium 137 mmol/L (135-145); Total Protein 7.5 g/dL (6.4-8.9)
[2019-09-11] MEDS ORDERED: Iodixanol* (CONTRAST) 320 MG/ML 100 ML SDV IV ONE (20:16)
[2019-09-11 21:13] LABS: Urine Appearance Clear; Urine Bilirubin Negative (Negative); Urine Blood 2+ (Negative); Urine Color Colorless; Urine Glucose Negative (Negative); Urine Ketones Negative (Negative); Urine Nitrite Negative (Negative); Urine Protein Negative (Negative); Urine Specific Gravity 1.004 (1.010-1.030); Urine Urobilinogen Negative (Negative)
[2019-09-11 21:16] LABS: Urine Bacteria Absent (Absent); Urine Red Blood Cell Trace(0-2/hpf) (Absent); Urine White Blood Cell Absent (Absent)
[2019-09-11 22:36] VITALS: BP 172/97
[2019-09-11] MEDS ORDERED: Magnesium CITRATE* 300 ML BTL PO ONE (22:36)
== END 2019-09-11 22:34 | disposition home or self-care (01) ==
LOC: ED 15:09
DX: K59.00 Constipation, unspecified (principal); I10 Essential (primary) hypertension; F17.290 Nicotine dependence, other tobacco product, uncomplicated; Z88.8 Allergy status to other drugs, medicaments and biological substances
CPT/HCPCS: 36415; 74177; 80053; 81003; 81015; 83690; 85025; 86140; 96360; 96361; 99283; A9270-GY; Q9967

== ENCOUNTER 2019-09-16 10:02 | Emergency (ER) | payer MEDICARE, MEDICAID ==
--- NOTE | 2019-09-16 10:26 | ED ---
GI/ HPI - HPI Summary HPI Summary: This pt is a 74 y/o male presenting [place] [facility] c/o chronic abd pain and constipation. Pt reports he has had abd pain and constipation for the past year. He notes he has a small amount of rectal bleeding with bowel movements. Pt states he feels stool is stuck in his rectum. Denies fever, cp, sob, nausea, vomiting. He notes the last time he saw his PCP was 3 weeks ago. He has multiple visits to the ED for the same complaints as today, recently seen in the ED on 09/11/19 and discharged home with dx constipation. - History of Current Complaint Chief Complaint: EDAbdPain Time Seen by Provider: 09/16/19 10:21 Stated Complaint: ABD PAIN Hx Obtained From: Patient Onset/Duration: Started Weeks Ago, Still Present Timing: Lasting Weeks Current Severity: Mild Pain Intensity: 10 Location of Pain: Diffuse Associated Signs and Symptoms: Positive: Constipation, Other: - POSITIVE: rectal bleeding. NEGATIVE: SOB. Negative: Nausea, Vomiting, Fever, Chest Pain Aggravating Factor(s): Nothing Alleviating Factor(s): Nothing - Allergy/Home Medications Allergies/Adverse Reactions: Allergies Allergy/AdvReac Type Severity Reaction Status Date / Time aspirin Allergy Bleeding Verified 09/16/19 10:18 Home Medications: Home Medications Magnesium CITRATE* [Citrate of Magnesia*] 300 ml PO ONCE 09/16/19 [History Confirmed 09/16/19] PMH/Surg Hx/FS Hx/Imm Hx Endocrine/Hematology History: Denies: Hx Diabetes Cardiovascular History: Reports: Hx Hypertension - ON DAILY MEDS Denies: Hx Pacemaker/ICD Respiratory History: Denies: Hx Asthma GI History: Reports: Other GI Disorders - Hemorrhoids History: Denies: Hx Renal Disease Musculoskeletal History: Reports: Hx Arthritis - HANDS, KNEES Sensory History: Reports: Hx Contacts or Glasses - WILL NOT BE WEARING DAY OF SURGERY Denies: Hx Legally Blind, Hx Deafness, Hx Hearing Aid Opthamlomology History: Reports: Hx Contacts or Glasses - WILL NOT BE WEARING DAY OF SURGERY Denies: Hx Legally Blind Neurological History: Denies: Hx Dementia Psychiatric History: Denies: Hx Panic Disorder, Hx Suicide Attempt, Hx of Violent Episodes Against Others - Surgical History Surgical History: Yes Surgery Procedure, Year, and Place: pt eyelid cut with ontiveros 20 years ago so had surgery to stich cut together. Hemorrhoidectomy Hx Anesthesia Reactions: No - Immunization History Immunizations Up to Date: Yes Infectious Disease History: No Infectious Disease History: Denies: Traveled Outside the [place] in Last 30 Days - Family History Known Family History: Negative: Cardiac Disease, Hypertension, Diabetes, Respiratory Disease, Blood Disorder - Social History Alcohol Use: None Hx Substance Use: Yes Substance Use Type: Reports: Marijuana Substance Use Comment - Amount & Last Used: WILL REFRAIN UNTIL AFTER SURGERY Hx Tobacco Use: Yes - previous cig smoking, now cigars Smoking Status (MU): Light Every Day Tobacco Smoker Type: Cigars Amount Used/How Often: 2-3 CIGARS/DAY 35 YRS Have You Smoked in the Last Year: Yes Review of Systems Negative: Fever, Chills Negative: Chest Pain Negative: Shortness Of Breath Gastrointestinal: Other - POSITIVE: constipation, rectal bleeding Positive: Abdominal Pain. Negative: Vomiting, Nausea All Other Systems Reviewed And Are Negative: Yes Physical Exam - Summary Physical Exam Summary: Constitutional: Well-developed, Well-nourished, Alert. (-) Distressed Skin: Warm, Dry HENT: Normocephalic; Atraumatic Eyes: Conjunctiva normal Neck: Musculoskeletal ROM normal neck. (-) JVD, (-) Stridor, (-) Tracheal deviation Cardio: Rhythm regular, rate normal, Heart sounds normal; Intact distal pulses; The pedal pulses are 2+ and symmetric. Radial pulses are 2+ and symmetric. Pulmonary/Chest wall: Effort normal. (-) Respiratory distress, (-) Wheezes, (-) Rales Abd: Soft, (-) tenderness, (-) Distension, (-) Guarding, (-) Rebound Rectal Exam: Multiple hemorrhoids at 3 o'clock and 6 o'clock positions. Not bleeding. Not thrombosed. Normal tone. Empty vault. Brown soft stool. Musculoskeletal: (-) Edema Neuro: Alert, Oriented x3 Psych: Mood and affect Normal Triage Information Reviewed: Yes Vital Signs On Initial Exam: Initial Vitals Temp Pulse Resp BP Pulse Ox 98.2 F 60 18 181/88 98 09/16/19 10:10 09/16/19 10:10 09/16/19 10:10 09/16/19 10:10 09/16/19 10:10 Vital Signs Reviewed: Yes Procedures - Sedation Patient Received Moderate/Deep Sedation with Procedure: No Diagnostics - Vital Signs Vital Signs Temp Pulse Resp BP Pulse Ox 09/16/19 10:10 98.2 F 60 18 181/88 98 - Laboratory Lab Statement: Any lab studies that have been ordered have been reviewed, and results considered in the medical decision making process. GIGU Course/Dx - Course Assessment/Plan: Pt is a 74 y/o male presenting to [facility] c/o chronic abd pain and constipation. He has had multiple visits to the ED for the same complaints as today, recently seen in the ED and discharged home with dx constipation. On exam, patient has multiple hemorrhoids at 3 o'clock and 6 o'clock positions. Not bleeding. Not thrombosed. Normal tone. Empty vault. Brown soft stool. Pt was prescribed Anusol ointment. He will be discharged home with follow up from his PCP. Pt was given instruction to return to the ED for any worsening or new symptoms. - Diagnoses Provider Diagnoses: Hemorrhoids Discharge ED - Sign-Out/Discharge Documenting (check all that apply): Patient Departure - Discharge home - Discharge Plan Condition: Stable Disposition: HOME Prescriptions: Hydrocortisone SUPP* [Anusol HC Supp*] 25 mg .SEE ORDER DAILY #3 supp Patient Education Materials: Hemorrhoids (ED) Referrals: Kimberly Juarez MD [Primary Care Provider] - Additional Instructions: Follow up with your primary care provider in 2-3 days. RETURN TO THE ED FOR ANY WORSENING OR NEW SYMPTOMS. - Billing Disposition and Condition Condition: STABLE Disposition: Home - Attestation Statements Document Initiated by Tim: Yes Documenting Scribe: Allie Amanda Provider For Whom Tim is Documenting (Include Credential): Simon Porter MD Scribe Attestation: Allie Johnson, scribed for Simon Porter MD on 09/16/19 at 1839. Scribe Documentation Reviewed: Yes Provider Attestation: The documentation as recorded by the Allie ahumada accurately reflects the service I personally performed and the decisions made by me, Simon Porter MD Status of Scribe Document: Viewed
[2019-09-16 11:22] VITALS: BP 168/83
== END 2019-09-16 11:23 | disposition home or self-care (01) ==
LOC: ED 10:02
DX: K64.9 Unspecified hemorrhoids (principal); I10 Essential (primary) hypertension; F17.290 Nicotine dependence, other tobacco product, uncomplicated; Z79.899 Other long term (current) drug therapy; Z88.8 Allergy status to other drugs, medicaments and biological substances
CPT/HCPCS: 99282

== ENCOUNTER 2019-09-20 11:35 | Observation (INO) | payer MEDICARE, MEDICAID ==
--- NOTE | 2019-09-20 11:39 | ED ---
Complex/Multi-Sys Presentation - HPI Summary HPI Summary: 74 year old M arriving via EMS complains of worsening constipation since 09/11. Patient seen in ED on 09/11 for similar per EMS. Had Abd/Pel CT done. Was discharged and given prescription for magnesium citrate which he has been taking. Has had some rectal bleeding per EMS 2/2 hemorrhoids. Last bowel movement yesterday 09/19. Hard formed stools. No diarrhea. States he feels like something hard is forming in his rectum that doesn't want to pass. Today 09/20, patient developed light headedness and syncope x2, and low grade fever per EMS. Also complains of constant umbilical pain. States he has been eating chicken broth and drinking coffee and tea but no real solid food. Symptoms rated 10/10 in severity. Symptoms aggravated by nothing. Symptoms alleviated by nothing. - History Of Current Complaint Hx Obtained From: Patient, EMS Onset/Duration: Lasting Days - 9, Still Present Timing: Constant Severity Currently: Severe - 10/10 Aggravating Factor(s): Nothing Alleviating Factor(s): Nothing - Allergies/Home Medications Allergies/Adverse Reactions: Allergies Allergy/AdvReac Type Severity Reaction Status Date / Time aspirin Allergy Bleeding Verified 09/16/19 10:18 PMH/Surg Hx/FS Hx/Imm Hx Endocrine/Hematology History: Denies: Hx Diabetes Cardiovascular History: Reports: Hx Hypertension - ON DAILY MEDS Denies: Hx Pacemaker/ICD Respiratory History: Denies: Hx Asthma GI History: Reports: Other GI Disorders - Hemorrhoids History: Denies: Hx Renal Disease Musculoskeletal History: Reports: Hx Arthritis - HANDS, KNEES Sensory History: Reports: Hx Contacts or Glasses - WILL NOT BE WEARING DAY OF SURGERY Denies: Hx Legally Blind, Hx Deafness, Hx Hearing Aid Opthamlomology History: Reports: Hx Contacts or Glasses - WILL NOT BE WEARING DAY OF SURGERY Denies: Hx Legally Blind Neurological History: Denies: Hx Dementia Psychiatric History: Denies: Hx Panic Disorder, Hx Suicide Attempt, Hx of Violent Episodes Against Others - Surgical History Surgery Procedure, Year, and Place: pt eyelid cut with ontiveros 20 years ago so had surgery to stich cut together. Hemorrhoidectomy Hx Anesthesia Reactions: No - Family History Known Family History: Negative: Cardiac Disease, Hypertension, Diabetes, Respiratory Disease, Blood Disorder - Social History Alcohol Use: None Hx Substance Use: Yes Substance Use Type: Reports: Marijuana Hx Tobacco Use: Yes - previous cig smoking, now cigars Smoking Status (MU): Light Every Day Tobacco Smoker Type: Cigars Amount Used/How Often: 2-3 CIGARS/DAY 35 YRS Have You Smoked in the Last Year: Yes Review of Systems Positive: Fever Positive: Abdominal Pain, Other - constipation, rectal bleeding. Negative: Diarrhea Neurological: Other - light headedness Positive: Syncope All Other Systems Reviewed And Are Negative: Yes Physical Exam - Summary Physical Exam Summary: Constitutional:Thin elderly male. NAD Skin: Warm, Dry HENT: Normocephalic; Atraumatic Eyes: Conjunctiva normal Neck: Musculoskeletal ROM normal neck. (-) JVD, (-) Stridor, (-) Nuchal rigidity Cardio: Rhythm regular, rate normal, Heart sounds normal; Intact distal pulses; Radial pulses are 2+ and symmetric. (-) Murmur Pulmonary/Chest wall: Effort normal. (-) Respiratory distress, (-) Wheezes, (-) Rales Abd: Soft, mild right lower abdominal tenderness, (-) Distension, (-) Guarding, (-) Rebound Rectal exam chaperoned by female RN and female hospital aide: he has external rectal hemorrhoids, no stool ball Musculoskeletal: (-) Edema Lymph: (-) Cervical adenopathy Neuro: Alert, Oriented x3 Psych: Mood and affect Normal Triage Information Reviewed: Yes Vital Signs Reviewed: Yes Procedures - Sedation Patient Received Moderate/Deep Sedation with Procedure: No Diagnostics - Laboratory Result Diagrams: 09/20/19 12:00 09/20/19 12:00 Lab Statement: Any lab studies that have been ordered have been reviewed, and results considered in the medical decision making process. - Radiology CXR Radiology Interpretation Completed By: Radiologist Summary of Radiographic Findings: 1. THERE IS INCREASED DENSITY WHICH PROJECTS OVER THE LEFT UPPER LOBE LIKELY RELATED TO THE ANTERIOR FIRST RIB LESS LIKELY A PULMONARY NODULE. RECOMMEND A DUAL-ENERGY PA AND. LATERAL CHEST FILMS FOR FURTHER EVALUATION. 2. NO EVIDENCE FOR ACUTE FINDING. ED physician has reviewed this report. - EKG 1201 Cardiac Rate: Bradycardia - 57 BPM EKG Rhythm: Sinus Bradycardia Summary of EKG Findings: T wave inversions in leads aVF, V4, V5. No prior to compare. ED physician has reviewed and interpreted this EKG. 1358 Cardiac Rate: Bradycardia - 45 BPM EKG Rhythm: Sinus Bradycardia Summary of EKG Findings: An EKG at 13:59 reveals normal sinus rhythm 45 BPM. No change from earlier today. ED physician has reviewed and interpreted this EKG. Complex Multi-Symp Course/Dx Course Of Treatment: 74-year-old male who presents with abdominal pain, constipation syncope. Physical exam w elderly male, no acute distress. Thin. Rectal exam without stool. Vital signs notable for bradycardia. Labs with a creatinine of 1.3. Chest x-ray unremarkable EKG with T-wave inversions ant/ lateral leads no prior. Troponin negative. Recent CT a/p for constipation. Syncope. DDx: Suspect secondary dehydration as patient has had poor by mouth intake. Also consider cardiac causes given abnormal EKG without prior. Plan for admission for syncope. Also: Seizure: no witnessed seizure activity, incontinence or h/o seizures to suggest seizure today. Hypoxia and hypoglycemia less likely in this patient with normal sats and BG. Volume issue : dehydration from vomiting/diarrhea/decreased PO, sepsis, GI bleed, ruptured ectopic or bleeding AAA. No. Neuro: No MANCUSO, no personal or family h/o cerebral aneurysm, nml neuro exam, so this is unlikely ICH or sentinel bleed. Also: vasovagal, drugs/meds, autonomic insufficiency - Diagnoses Provider Diagnoses: Syncope - Physician Notifications Discussed Care Of Patient With: Claribel Mccarty Time Discussed With Above Provider: 13:33 Instructed by Provider To: Admit As Inpatient Discharge ED - Sign-Out/Discharge Documenting (check all that apply): Patient Departure - Discharge Plan Condition: Stable Disposition: ADMITTED TO [facility] - Billing Disposition and Condition Condition: STABLE Disposition: Admitted to [facility] - Attestation Statements Document Initiated by Jordonibe: Yes Documenting Scribe: Dorcas Styles Provider For Whom Tim is Documenting (Include Credential): Ar Whitlock MD Scribe Attestation: Dorcas Johnson, scribed for Ar Whitlock MD on 09/20/19 at 7594. Scribe Documentation Reviewed: Yes Provider Attestation: The documentation as recorded by the Dorcas ahumada accurately reflects the service I personally performed and the decisions made by me, Ar Whitlock MD Status of Scribe Document: Viewed
[2019-09-20] MEDS ORDERED: NS 0.9% 1000 ML** 1,000 ML IV ONE (11:42)
[2019-09-20 12:12] LABS: ABS Eosinophils 0.1 10^3/ul (0-0.6); ABS Lymphocytes 0.8 10^3/ul (1.0-4.8); ABS Monocytes 0.5 10^3/ul (0-0.8); ABS Neutrophils 1.6 10^3/ul (1.5-7.7); Eosinophil % 2.6 %; Hematocrit 41 % (42-52); Lymphocyte % 27.9 %; Mean Corpuscular HGB Conc 35 g/dL (31-36); Mean Corpuscular Hemoglobin 35 pg (27-31); Mean Corpuscular Volume 101 fL (80-94); Mean Platelet Volume 8.5 fL (7.4-10.4); Nucleated Red Blood Cells % 0.1; Platelet Count 183 10^3/uL (150-450); Red Blood Count 4.02 10^6 /uL (4.18-5.48); Red Cell Distribution Width 15 % (10-15)
[2019-09-20 12:27] LABS: Albumin 4.7 g/dL (3.2-5.2); Albumin/Globulin Ratio 1.9 (1-3); BUN/Creatinine Ratio 4.7 (8-20); Calcium 9.7 mg/dL (8.6-10.3); EGFR African American 66.7 (>60); EGFR Non-African American 55.1 (>60); Globulin 2.5 g/dL (2-4); Potassium 3.8 mmol/L (3.5-5.0); Total Bilirubin 0.5 mg/dL (0.2-1.0); Total Protein 7.2 g/dL (6.4-8.9)
[2019-09-20] MEDS ORDERED: Ondansetron INJ* 2 MG/ML VIAL IV PRN (14:46)
[2019-09-20] MEDS ORDERED: Al Hydrox/Mg Hydrox/Simet LIQ* 30 ML UDC PO PRN (14:46)
[2019-09-20] MEDS ORDERED: Acetaminophen TAB* 325 MG PO PRN (14:46)
[2019-09-20] MEDS ORDERED: Lactulose* 15 ML UDC PO PRN (14:48)
[2019-09-20] MEDS: Hydrocortisone SUPP* 25 MG SUPP (2.5%) PR ONE ×2 (16:07→17:22)
--- NOTE | 2019-09-20 16:14 | ECHO ---
*[facility]* [place] [id number] Fax #: [phone] Transthoracic Echocardiogram Patient: Adrián Schwartz : 1945 Study Date: 09/20/2019 Age: 74 Gender: M HR: 49 bpm Height: 67 in /170.2 cm BSA: 1.68 m^2 Weight: 129.7 lb /59 kg BMI: 20.4 kg/m^2 *Change Over: * Katey Blancas [facility] *Referring Physician: * O'Vero Espitia *Reading Physician: * Jose Ramon Bush MD Indications: Syncope. History: Risk factors: Current tobacco use. Hypertension. Conclusions Summary: - Left ventricle: The cavity size is normal. Wall thickness is mildly increased. Systolic function is normal. The estimated ejection fraction is 55-60%. Wall motion is normal; there are no regional wall motion abnormalities. - Right ventricle: The cavity size is normal. Systolic function is normal. - Left atrium: The atrium is mildly dilated. - Aortic valve: The valve is trileaflet. The leaflets are mildly thickened. There is moderate regurgitation. - Pulmonary arteries: Systolic pressure can not be accurately estimated. Recommendations: None prior for comparison at time of interpretation. Study data: Transthoracic echocardiogram. Procedure: Transthoracic echocardiography was performed. Image quality was good. Complete 2D, spectral Doppler, and color flow Doppler. Location: Emergency department. Patient status: Inpatient. Patient room number: ED-06. Rhythm: Bradycardia. Findings Left ventricle: The cavity size is normal. Wall thickness is mildly increased. Systolic function is normal. The estimated ejection fraction is 55-60%. Wall motion is normal; there are no regional wall motion abnormalities. Left ventricular diastolic function parameters are indeterminate. Right ventricle: The cavity size is normal. Systolic function is normal. Left atrium: The atrium is mildly dilated. Right atrium: The atrium is normal in size. Mitral valve: The leaflets are mildly thickened. There is no evidence of stenosis. There is trace regurgitation. Aortic valve: The valve is trileaflet. The leaflets are mildly thickened. Thickening, consistent with sclerosis. There is no evidence of stenosis. There is moderate regurgitation. Tricuspid valve: The leaflets are normal thickness. There is no evidence of stenosis. There is trace to mild regurgitation. Pulmonic valve: The leaflets are normal thickness. There is no evidence of stenosis. There is trace regurgitation. Aorta: Aortic root: The aortic root is appears normal. Ascending aorta: The ascending aorta is upper normal in size. Aortic arch: The aortic arch is appears normal. Pericardium: There is no significant pericardial effusion. Pulmonary arteries: The main pulmonary artery is normal-sized. Systolic pressure can not be accurately estimated. Systemic veins: Inferior vena cava: The vessel is normal in size. There is (>= 50%) respiratory change in the IVC dimension. Measurements Left ventricle Value Ref Aortic valve Value Ref DON, LAX 5.5 cm 4.2 - 5.8 Colby diam, ED 2.0 cm ---- ESD, LAX (H) 4.2 cm 2.5 - 4.0 Peak v, S 1.93 m/sec ---- FS, LAX 25 % 25 - 43 VTI, S 47.2 cm ---- PW, ED, LAX (H) 1.1 cm 0.6 - 1.0 Mean grad, S 6.0 mm Hg ---- FS 25 % 25 - 43 Peak grad, S 15.0 mm Hg ---- PW, ED (H) 1.1 cm 0.6 - 1.0 LVOT/AV, VTI ratio 0.66 ---- E', lat colby, TDI (L) 6.3 cm/sec >=10.0 JESE, VTI 2.06 cm^2 -- -- E/e', lat colby, 10 JESE, Vmax 2.34 cm^2 ---- TDI AR peak v 4.11 m/sec ---- E', med colby, TDI (L) 6.6 cm/sec >=7.0 AR PHT 565 ms -- -- E/e', med colby, 9 AR peak grad 68 mm Hg ---- TDI E', avg, TDI 6.5 cm/sec Mitral valve Value Ref E/e', avg, TDI 10 <=14 Peak E 0.62 m/sec -- -- Peak A 0.48 m/sec ---- LVOT Value Ref Decel time 222 ms ---- Diam, S 2.00 cm Peak E/A ratio 1.3 ---- Area 3.1 cm^2 Peak marquita, S 1.44 m/sec Pulmonic valve Value Ref VTI, S 31.0 cm Peak v, S 0.89 m/sec ---- Peak grad, S 8 mm Hg Peak grad, S 3.0 mm Hg ---- Mean grad, S 4 mm Hg SV 98 ml Aortic root Value Ref SV/bsa 58 ml/m^2 Root diam 3.5 cm <3.9 Ventricular septum Value Ref Ascending aorta Value Ref IVS, ED (H) 1.1 cm 0.6 - 1.0 AAo AP diam, S 3.6 cm ---- Right ventricle Value Ref Aortic arch Value Ref DON, LAX 3.4 cm Arch diam 2.2 cm ---- DON minor ax, A4C (H) 3.6 cm 1.9 - 3.5 mid Decending aorta Value Ref Jignesh peak marquita 0.82 m/sec ---- Left atrium Value Ref AP dim, ES 3.70 cm 3.00 - Inferior vena cava Value Ref 4.00 Diam 1.8 cm ---- ML dim, A4C 4.3 cm SI dim, A4C 5.0 cm Vol/bsa, ES, 1-p 26 ml/m^2 12 - 37 A4C Vol/bsa, ES, A/L (H) 36 ml/m^2 16 - 34 Right atrium Value Ref SI dim, ES 4.6 cm 3.4 - 5.3 ML dim, ES, A4C 4.3 cm 2.6 - 4.4 Estimated RAP 3 mm Hg Legend: (L) and (H) rubén values outside specified reference range. Prepared and electronically signed by Jose Ramon Bush MD 09/20/2019 16:13
[2019-09-20] MEDS: Enoxaparin(*) 40 MG/0.4 ML SYR SUBCUT SCH (17:46)
[2019-09-20] MEDS ORDERED: Magnesium CITRATE* 300 ML BTL PO ONE (17:48)
--- NOTE | 2019-09-20 18:29 | HP ---
CC: Dr. Juarez* HISTORY AND PHYSICAL: DATE OF ADMISSION: 09/20/19 PROVIDER: WILLIAM Resendez PRIMARY CARE PROVIDER: Dr. Juarez. ATTENDING PHYSICIAN WHILE IN HOSPITAL: Dr. Claribel Mccarty* (dictated by WILLIAM Resendez). CHIEF COMPLAINT: Syncope x2. HISTORY OF PRESENT ILLNESS: Adrián Schwartz is a 74-year-old male with past medical history significant for chronic constipation, CKD, hypertension, benign pancreatic cyst, and severe aortic regurgitation, who presented to the emergency department today after 2 syncopal episodes at home. The patient has chronic constipation and he is feeling constipated today. His last bowel movement was diarrhea 2 days ago and he did have a bowel movement yesterday and today by manually disimpacting himself as he feels the sensation of hard stool in his rectum. He was straining in the bathroom today and noticed small red streak in his stool and he does note his history of hemorrhoids. No bright red blood in the toilet. He feels a little bit of abdominal pain in the bilateral lower quadrants as well as bloating. He was straining in the bathroom and after showering, he walked outside of the bathroom and then woke up on the floor. He was feeling dizzy after this episode and a sensation of lightheadedness, but he does not recall feeling this way leading up to this episode. 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 He denies any head pain. He does not believe he hit his head as he believes he landed on the snow. After this second syncopal episode, he felt very diaphoretic and more dizzy. He has been having some blurry waves in his vision; however, this is after his second syncopal episode and has since resolved. At this time, he denies difficulty breathing, chest pain, history of palpitations, fever, chills, nausea , or vomiting. EMERGENCY DEPARTMENT COURSE: When the patient arrived to the emergency department, his vital signs were temperature 97.4 degrees Fahrenheit; pulse is 70; respiration rate 16; oxygen saturation 97% on room air; blood pressure 151/ 91, later 164/82. The patient had EKGs demonstrating some bradycardia with heart rate of 59. He was given a liter of normal saline in the emergency department and the hospitalists were asked to evaluate the patient for admission. PAST MEDICAL HISTORY: 1. CKD. 2. Chronic constipation. 3. Hypertension. 4. Pancreatic cyst. 5. Severe aortic regurgitation on echocardiogram in 2015 performed as outpatient. 6. Hemorrhoids. 7. 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 PAST SURGICAL HISTORY: Status post hemorrhoidectomy. HOME MEDICATIONS: 1. Hydrocortisone suppository 25 mg per rectum q.12 hours. 2. Hydrocortisone 2.5% cream 1 application topically t.i.d. p.r.n. rectal pain. 3. MiraLAX 17 g p.o. daily p.r.n. constipation. 4. Nitroglycerin 0.4% rectal ointment 1 application NE q.12 p.r.n. pain. 5. Multivitamin 1 tab p.o. daily. 6. Metoprolol tartrate 100 mg p.o. b.i.d. 7. Magnesium citrate 300 mL p.o. p.r.n. constipation. 8. Lactulose 15 mL p.o. b.i.d. p.r.n. constipation. 9. Probiotic 1 cap p.o. daily. 10. Lisinopril 40 mg p.o. daily. 11. Vitamin B complex 1 tab p.o. daily. ALLERGIES: Adverse reaction of bleeding to ASPIRIN. FAMILY HISTORY: Denies family history of heart disease. SOCIAL HISTORY: The patient is . He has 2 adult children. He would be okay with either of his children, son, Rom Schwartz or daughter, Chastity Barajas being his medical decision makers should he need them. His daughter's phone number is [phone]. 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 He denies illicit drug use, tobacco use, or alcohol use. He is an immigrant from [place]. REVIEW OF SYSTEMS: An 11-point review of systems was completed and all pertinent positives and negatives are above in the HPI. All other systems are negative. PHYSICAL EXAMINATION GENERAL: Thin, elderly male, lying upright in hospital bed, appearing comfortable, in no acute distress. HEENT: Head is atraumatic, normocephalic. Eyes: PERRL. Sclerae anicteric. ENT: Mucous membranes are moist. NECK: Supple without JVD. LUNGS: Clear to auscultation throughout. CARDIO: Regular rate and rhythm without murmurs, rubs, or gallops appreciated. ABDOMEN: Normoactive bowel sounds x4 quadrants. Abdomen is soft, nontender, nondistended. Rectal exam yielded no blood or hard stool in the vault, no internal or external hemorrhoids appreciated. EXTREMITIES: No clubbing, cyanosis, or edema. NEURO: The patient is alert and oriented x3. No focal deficits. Able to move all extremities. SKIN: Warm, dry, and intact. DIAGNOSTIC STUDIES/LAB DATA: Echocardiogram from 2015 outpatient records demonstrate moderate to severe aortic regurgitation. Chest x-ray on 09/20/19: There is increased density which projects over the left upper lobe, likely related to the anterior first rib, less likely a pulmonary nodule. Recommended dual-energy PA and lateral chest films for further evaluation. No evidence for acute finding. EKG: Sinus rhythm, rate 57 beats per minute, T-wave inversion in V4, V5. No prior EKG for comparison. White blood cell count 3.0, hemoglobin 14, hematocrit 41, platelets 183. Sodium 137, potassium 3.8, chloride 104, carbon dioxide 27, anion gap 6, BUN 6, creatinine 1.28, glucose 77, calcium 9.7. Total bili 0.5, AST 14, ALT 12, alk phos 60. ASSESSMENT AND PLAN: Adrián Schwartz is a 74-year-old male with past medical history significant for hypertension, chronic constipation, chronic kidney disease and aortic regurgitation, who presents to the emergency department due to 2 episodes of syncope at home. The patient will be admitted to OB for: 1. Syncopal episode. The patient should have a repeat echocardiogram. Given that his outpatient transthoracic echocardiogram in 2015 demonstrated severe aortic regurgitation, I do have concern for possible heart failure; however, he is euvolemic at this time. I will continue to monitor the patient on telemetry. He was bradycardic on his most recent EKG. There were some EKG changes with T-wave inversions in V4, V5 and I will repeat another EKG tomorrow morning. I do not have an EKG from the outpatient setting as Dr. Juarez's office does not have one for comparison. His electrolytes were within normal limits. High on differential includes vasovagal syncope concerning the patient was straining prior to these episodes. 2. Possible pulmonary nodule. I will complete an additional chest x-ray with lateral view as the patient already had an AP. Considering history of MDS is would be of benefit to confirm if there is a true pulmonary nodule present. Otherwise, further workup can be completed outpatient. 3. Chronic kidney disease. The patient is at his baseline. 4. Hypertension. I will continue the patient's home lisinopril and metoprolol. 5. Chronic constipation. I will continue the patient's home medications and I will order some milk of magnesia as well. However, I now order a plain film of his abdomen; however, I have very low suspicion that he is actually constipated at this time as his abdomen is not bloated and his abdominal exam is overall benign. This patient has what appears to be some poor insight into the management of his chronic constipation and we did discuss taking his anticonstipation medications daily and not p.r.n. 6. FEN: The patient may have a regular unrestricted diet. Electrolytes do not need to be replaced. He received 1 L of IV fluids in the emergency department and I do not see the need for further fluid repletion. 7. Code status: The patient is full code. 8. DVT prophylaxis: The patient has a DVT risk score of 2. I have ordered Lovenox 40 subcu. TIME SPENT: Approximately 45 minutes was spent on this admission, approximately half this time has been spent at the bedside evaluating the patient and discussing the plan of care. This case has been reviewed by my attending, Dr. Claribel Mccarty, and she agrees with this plan of care. WILLIAM RESENDEZ [id number]/[facility] #: [id number] MTDD
[2019-09-20] MEDS: Metoprolol Tartrate TAB* 100 MG TAB PO SCH (19:52)
[2019-09-21 05:22] LABS: Hematocrit 40 % (42-52); Hemoglobin 13.5 g/dL (14.0-18.0); Mean Corpuscular HGB Conc 34 g/dL (31-36); Mean Corpuscular Hemoglobin 35 pg (27-31); Mean Corpuscular Volume 101 fL (80-94); Mean Platelet Volume 9.2 fL (7.4-10.4); Platelet Count 167 10^3/uL (150-450); Red Blood Count 3.89 10^6 /uL (4.18-5.48); Red Cell Distribution Width 15 % (10-15); White Blood Count 2.7 10^3/uL (3.5-10.8)
[2019-09-21 05:32] LABS: ABS Eosinophils 0.1 10^3/ul (0-0.6); ABS Lymphocytes 1.3 10^3/ul (1.0-4.8); ABS Monocytes 0.6 10^3/ul (0-0.8); ABS Neutrophils 0.7 10^3/ul (1.5-7.7); Eosinophil % 5.5 %; Lymphocyte % 46.4 %; Nucleated Red Blood Cells % 0.2
[2019-09-21 07:03] LABS: BUN/Creatinine Ratio 7.6 (8-20); Calcium 8.9 mg/dL (8.6-10.3); EGFR African American 73.2 (>60); EGFR Non-African American 60.5 (>60); Potassium 4.1 mmol/L (3.5-5.0)
[2019-09-21] MEDS: Lactobacillus Acidophilus* 1 TAB PO SCH (08:22)
[2019-09-21] MEDS: Multivitamins/Minerals TAB PO SCH (08:22)
[2019-09-21] MEDS: Polyethylene Glycol 3350* 17 GM PACKET PO PRN (08:22)
[2019-09-21] MEDS: Lisinopril TAB* 10 MG PO SCH (08:22)
[2019-09-21] MEDS: Metoprolol Tartrate TAB* 100 MG TAB PO SCH (08:22)
[2019-09-21] MEDS: Senna TAB 8.6 mg* TAB PO PRN (11:05)
[2019-09-21] MEDS: Magnesium Hydroxide LIQ* 30 ML UDC PO PRN (11:05)
[2019-09-21 12:10] LABS: Troponin I 0.01 ng/mL (<0.03)
[2019-09-21 12:13] LABS: Troponin I 0.01 ng/mL (<0.03)
[2019-09-21 12:30] LABS: Magnesium 2.4 mg/dL (1.9-2.7)
[2019-09-21 12:49] LABS: TSH (Thyroid Stimulating Horm) 0.66 mcIU/mL (0.34-5.60)
[2019-09-21] MEDS: Vitamin B Complex TAB PO SCH (14:42)
[2019-09-21] MEDS: Enoxaparin(*) 40 MG/0.4 ML SYR SUBCUT SCH (15:26)
--- NOTE | 2019-09-21 15:32 | CONS ---
AMENDED REPORT NOW INCLUDES DATE OF CONSULT - ESIGNED BEFORE ADJUSTMENT CC: Jackson Minor MD; Dr. Juarez * CARDIOLOGY CONSULTATION: DATE OF CONSULT: 09/21/19 CONSULTING PHYSICIAN: Dr. Shauna Isaacs. REASON FOR EVALUATION: Syncope, bradycardia. HISTORY OF PRESENT ILLNESS: This is a very pleasant 74-year-old [place] man who reports recent chronic constipation, significant weight loss, chronic renal disease, hypertension, pancreatic cyst and aortic insufficiency, who had 2 syncopal episodes yesterday. He said he was in his usual state of health until about 3 months ago when he slipped and fell on his back. He said since then he has had problems moving his bowels. He said it is painful and difficult to move more than a small amount of stool and he has been having discomfort. He said his last diarrhea was 2 days ago and then he tried to disimpact himself yesterday and he feels like something is stuck in his rectum. He was straining to the bathroom and noticed some red stool attributed to his hemorrhoids. He apparently strained in the bathroom, then showered, then walked outside, and woke up on the floor. He said right before the episode, he felt like things were spinning and his vision dimmed. He denied any chest pain or palpitations. He went back in the house, and apparently had a second episode about 5 minutes later. He did note diaphoresis with these episodes and he denied incontinence. He denies a history of chest pain. He said he runs 2 blocks every day to keep in shape and he is very fast. He does report that he has lost about 60 pounds over the last 5 months. He denies any fevers, chills, or sweats. No orthopnea, no peripheral edema. The patient denies alcohol use. He says he has about 1 cigar a month. He is and has 2 adult male children and 2 daughters. PAST MEDICAL HISTORY: Includes chronic kidney disease, chronic constipation, hypertension pancreatic cyst. Reportedly severe aortic stenosis on echocardiogram in 2014, on yesterday/s echo it was read as moderate. Hemorrhoids myelodysplastic syndrome. PAST SURGICAL HISTORY: Includes hemorrhoidectomy and surgery on his left eye after trauma. HOME MEDICATIONS: Include: 1. Hydrocortisone 25 per rectum q.12 hours. 2. MiraLAX 17 g p.r.n. 3. Nitroglycerin ointment p.r.n. to the rectum. 4. Multivitamin. 5. Metoprolol tartrate 100 mg b.i.d. 6. Magnesium citrate 300 mg p.r.n. 7. Lactulose 15 mL p.o. b.i.d. p.r.n. 8. Probiotic capsule a day. 9. Lisinopril 40 mg a day. 10. Vitamin B complex 1 tab daily. ALLERGIES: He denies any medical allergies, but he does report that he has bleeding from his rectum on ASPIRIN. FAMILY HISTORY: Includes sister of a CVA in her 60s, father of a CVA in his 40s, and mother of an ulcer at 65. SOCIAL HISTORY: He is , has adult children. 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 REVIEW OF SYSTEMS: Review of systems x10 was negative except as above. PHYSICAL EXAM: He is a well-developed, frail appearing gentleman, in no apparent distress. Weight 130 pounds. Blood pressure 158/73, heart rate is 66. No significant JVD. There was subcutaneous swelling in his left submandibular area, adjacent to an angle at the mandible near the ear. Carotids 2+ without bruits. No cervical adenopathy or thyromegaly other than described above. Cardiac Exam: S1, S2 with a 2/4 diastolic decrescendo murmur at the left sternal border. PMI was not displaced. Chest: Decreased breath sounds, prolonged expiratory phase. No CVAT. Abdomen: Bowel sounds present, nontender. Femoral pulses intact. There was an abdominal bruit and a prominent aorta. Distal pulses intact 2+. Negative edema. Motor strength 5/5 bilaterally. Deep tendon reflexes 2/4. Alert and oriented x3. His heart rates have been monitored, as low as 45 overnight. DIAGNOSTIC STUDIES/LAB DATA: His EKG from 09/20/19, revealed sinus bradycardia , 57, with lateral ST-T changes. EKG from 09/20/19 at 1358 revealed sinus bradycardia of 45 with slightly more pronounced T-wave inversions compared to . EKG from 09/20/19 at 1553 revealed slight improvement in the T-wave inversions distal biphasic with a sinus bradycardia of 47. Abdominal x-ray from 09/20/19 revealed no free air or obstruction. Chest x-ray from 09/20/19 revealed density over the left upper lobe, possible pulmonary nodule, which persisted on the prominent first rib, hypertrophy of the left first rib. Soft tissue images demonstrated nodule and CT was suggested. He had an echocardiogram on 09/20/19 at 1455, which revealed mild LVH, EF of 55 % to 60%, mild left atrial enlargement, moderate AI. Labs include a BUN of 9, creatinine of 1.18 today. Troponin from yesterday was 0.01. White count of 2.7, hemoglobin of 13.5, hematocrit of 40, MCV of 101. IMPRESSION: My impression is that Mr. Schwartz had an episode of syncope of unclear etiology. It was in the setting of abdominal pain and trying to move his bowels and some diaphoresis, vasovagal is the possibility. He also has noted bradycardia and some degree of aortic insufficiency, which appears to be moderate. He is on multiple antihypertensives. There may have been an element of hypotension related to drugs and vasovagal syndrome. I am also concerned about the chronic constipation and weight loss, raising the possibility of malignancy. He has EKG change, raising the possibility of ischemia. For the time being, I would recommend the followin. I have added on troponins to try to rule out injury. 2. I would recommend decreasing his metoprolol to 25 mg b.i.d. and watching for improvement in his heart rate and monioring for control of his blood pressure. 3. If further blood pressure control is needed, we may consider adding amlodipine 2.5 mg a day to his regimen. 4. I would suggest a stress nuclear to evaluate for ischemia. 5. We will check sed rate, CRP. 6. We will consider evaluation of the left jaw nodule as well as further GI evaluation to rule out mechanical obstruction or malignancy especially in light of the weight loss. 7. Further recommendation will depend on his clinical course. [id number]/[facility] #: [id number] JENNIFER
--- NOTE | 2019-09-21 16:49 | PN ---
Subjective Date of Service: 09/21/19 Interval History: No events today. He complains of ongoing abdominal discomfort and inability to have a complete bowel movement, feels like they are small "rocks." No nausea, but he is not interested in eating due to this abdominal discomfort. He has no other complaints. He has no chest pain, lightheadedness, palpitations, and he has had no events on telemetry. Objective Active Medications: Acetaminophen (Tylenol Tab*) 650 mg PO Q4H PRN PRN Reason: MILD PAIN or TEMP > 100.4 Al Hydrox/Mg Hydrox/Simethicone (Maalox Plus*) 30 ml PO Q6H PRN PRN Reason: INDIGESTION Last Admin: 09/21/19 11:05 Dose: 30 ml Bisacodyl (Dulcolax Supp*) 10 mg [place] DAILY PRN PRN Reason: CONSTIPATION Last Admin: 09/21/19 11:05 Dose: 10 mg Enoxaparin Sodium (Lovenox(*)) 40 mg SUBCUT Q24H [facility] Last Admin: 09/21/19 15:26 Dose: 40 mg Lactobacillus Rhamnosus (Lactobacillus Acidophilus*) 1 tab PO DAILY [facility] Last Admin: 09/21/19 08:22 Dose: 1 tab Lactulose (Lactulose*) 15 ml PO BID PRN PRN Reason: CONSTIPATION Lisinopril (Prinivil Tab*) 40 mg PO DAILY [facility] Last Admin: 09/21/19 08:22 Dose: 40 mg Magnesium Hydroxide (Milk Of Magnesia Liq*) 30 ml PO Q4H PRN PRN Reason: CONSTIPATION Last Admin: 09/21/19 11:05 Dose: 30 ml Multivitamins/Minerals (Theragran/Minerals Tab*) 1 tab PO DAILY [facility] Last Admin: 09/21/19 08:22 Dose: 1 tab Ondansetron HCl (Zofran Inj*) 4 mg IV Q4H PRN PRN Reason: NAUSEA/VOMITING Polyethylene Glycol/Electrolytes (Miralax*) 17 gm PO DAILY PRN PRN Reason: CONSTIPATION Last Admin: 09/21/19 08:22 Dose: 17 gm Senna (Senokot 8.6 Mg Tab*) 1 tab PO BID PRN PRN Reason: CONSTIPATION Last Admin: 09/21/19 11:05 Dose: 1 tab Vitamin B Complex/Vitamin E (B Complex-50*) 1 tab PO DAILY [facility] Last Admin: 09/21/19 14:42 Dose: 1 tab Vital Signs - 8 hr 09/21/19 11:15 Temperature 97.7 F Pulse Rate 56 Respiratory 20 Rate Blood Pressure 150/67 (mmHg) O2 Sat by Pulse 100 Oximetry Oxygen Devices in Use Now: None Appearance: alert, well appearing, walking around his room Eyes: No Scleral Icterus Ears/Nose/Mouth/Throat: NL Teeth, Lips, Gums, - - soft prominence of the left mandible Neck: NL Appearance and Movements; NL JVP Respiratory: Symmetrical Chest Expansion and Respiratory Effort, Clear to Auscultation Cardiovascular: NL Sounds; No Murmurs; No JVD, RRR Abdominal: - - hyperactive bowel sounds, no masses palpable, not particularly tender to palpation Lymphatic: No Cervical Adenopathy Extremities: No Edema Result Diagrams: 09/21/19 04:38 09/21/19 06:00 Assess/Plan/Problems-Billing Assessment: This is a 74 year old man with history of HTN, aortic regurgitation, chronic constipation, and MDS who was admitted 09/20 with syncope and complains of ongoing abdominal pain and constipation - Patient Problems (1) Syncope Current Visit: Yes Status: Acute Code(s): R55 - SYNCOPE AND COLLAPSE SNOMED Code(s): 943185685 Comment: with an abnormal admission EKG and also moderate aortic regurgitation I consulted with Dr. Minor today, who saw the patient and suggested that aortic regurgitation worsens in the setting of bradycardia, and this could have contributed to syncope, so we reduced his dose of metoprolol (from 100mg bid to 25 mg bid) Dr. Minor also ordered a stress test to eval for abnormal ekgs Orthostatic vitals are negative there was some concern about vasovagal syncope given his constipation, but he does not describe his syncope in relation to straining or bowel movements (2) Constipation Current Visit: Yes Status: Acute Code(s): K59.00 - CONSTIPATION, UNSPECIFIED SNOMED Code(s): 69818736 Comment: on mag citrate, miralax, and i added a suppository today he tells me he had a colonoscopy one month ago in a town in [place] but cannot tell me anything else about it--I used dental coordinator #[id number] to help understand, but he says "a [facility] in [place] just like this one" and can offer no more I tried calling Dr Juarez's office to see if they have the report but they are already closed for the holiday I will start with a CT abd/pelvis to further work up his abdominal pain and constipation *of note, he also reports a 50-60 lb weight loss, so depending on what the CT shows, we may consider a GI consult (3) MDS (myelodysplastic syndrome) Current Visit: Yes Status: Acute Code(s): D46.9 - MYELODYSPLASTIC SYNDROME, UNSPECIFIED SNOMED Code(s): 712858386 Comment: at baseline, follows with Dr. Encarnacion; case reviewed with Dr. Sharif. neutropenia at this level not concerning in MDS.
[2019-09-21] MEDS: Iohexol 300* (CONTRAST) 10 ML SDV IV ONE ×2 (17:48→18:48)
[2019-09-21] MEDS ORDERED: Metoprolol Tartrate TAB* 50 mg PO SCH (21:00)
[2019-09-22 06:13] LABS: Hematocrit 41 % (42-52); Hemoglobin 14.3 g/dL (14.0-18.0); Mean Corpuscular HGB Conc 35 g/dL (31-36); Mean Corpuscular Hemoglobin 36 pg (27-31); Mean Corpuscular Volume 103 fL (80-94); Mean Platelet Volume 9.2 fL (7.4-10.4); Platelet Count 175 10^3/uL (150-450); Red Blood Count 4.02 10^6 /uL (4.18-5.48); Red Cell Distribution Width 15 % (10-15); White Blood Count 3.3 10^3/uL (3.5-10.8)
[2019-09-22 06:26] LABS: ABS Neutrophils 0.8 10^3/ul (1.5-7.7)
[2019-09-22 06:31] LABS: ALT 10 U/L (7-52); AST 12 U/L (13-39); Albumin 4.5 g/dL (3.2-5.2); Albumin/Globulin Ratio 1.9 (1-3); Alkaline Phosphatase 54 U/L (34-104); Anion Gap 3 mmol/L (2-11); BUN/Creatinine Ratio 9.9 (8-20); Blood Urea Nitrogen 11 mg/dL (6-24); C Reactive Protein < 1.00 mg/L (<8.01); CO2 Carbon Dioxide 29 mmol/L (22-32); Calcium 9.2 mg/dL (8.6-10.3); Chloride 105 mmol/L (101-111); EGFR African American 78.6 (>60); EGFR Non-African American 64.9 (>60); Globulin 2.4 g/dL (2-4); Glucose 85 mg/dL (70-100); Potassium 4.1 mmol/L (3.5-5.0); Sodium 137 mmol/L (135-145); Total Protein 6.9 g/dL (6.4-8.9)
[2019-09-22 06:53] LABS: ABS Eosinophils 0.2 10^3/ul (0-0.6); ABS Lymphocytes 1.7 10^3/ul (1.0-4.8); ABS Monocytes 0.6 10^3/ul (0-0.8); Eosinophil % 4.8 %; Lymphocyte % 51.2 %; Nucleated Red Blood Cells % 0.3
[2019-09-22] MEDS: Iohexol 300* (CONTRAST) 10 ML SDV IV ONE (07:37)
[2019-09-22] MEDS: Lisinopril TAB* 10 MG PO SCH (07:49)
[2019-09-22] MEDS: Polyethylene Glycol 3350* 17 GM PACKET PO PRN (07:49)
[2019-09-22] MEDS: Senna TAB 8.6 mg* TAB PO PRN (07:50)
[2019-09-22] MEDS: Multivitamins/Minerals TAB PO SCH (07:50)
[2019-09-22] MEDS: Vitamin B Complex TAB PO SCH (07:50)
[2019-09-22] MEDS: Lactobacillus Acidophilus* 1 TAB PO SCH (07:50)
[2019-09-22 07:55] LABS: Erythrocyte Sed Rate 0 mm/Hr (0-19)
--- NOTE | 2019-09-22 11:12 | PN ---
Subjective Date of Service: 09/22/19 Interval History: Reports having liquid BM today Has chronic abdominal pain: dull pain at the abdomen 03/08, which is ongoing X 3 + months. No lightheadedness, no chest pain, no palpitations. Family History: Unchanged from Admission Social History: Unchanged from Admission Past Medical History: Unchanged from Admission Objective Active Medications: Acetaminophen (Tylenol Tab*) 650 mg PO Q4H PRN PRN Reason: MILD PAIN or TEMP > 100.4 Al Hydrox/Mg Hydrox/Simethicone (Maalox Plus*) 30 ml PO Q6H PRN PRN Reason: INDIGESTION Last Admin: 09/21/19 11:05 Dose: 30 ml Amlodipine Besylate (Norvasc Tab*) 2.5 mg PO DAILY [facility] Bisacodyl (Dulcolax Supp*) 10 mg [place] DAILY PRN PRN Reason: CONSTIPATION Last Admin: 09/22/19 07:51 Dose: 10 mg Enoxaparin Sodium (Lovenox(*)) 40 mg SUBCUT Q24H [facility] Last Admin: 09/21/19 15:26 Dose: 40 mg Lactobacillus Rhamnosus (Lactobacillus Acidophilus*) 1 tab PO DAILY [facility] Last Admin: 09/22/19 07:50 Dose: 1 tab Lactulose (Lactulose*) 15 ml PO BID PRN PRN Reason: CONSTIPATION Last Admin: 09/22/19 07:49 Dose: 15 ml Lisinopril (Prinivil Tab*) 40 mg PO DAILY [facility] Last Admin: 09/22/19 07:49 Dose: 40 mg Magnesium Hydroxide (Milk Of Magnesia Liq*) 30 ml PO Q4H PRN PRN Reason: CONSTIPATION Last Admin: 09/21/19 11:05 Dose: 30 ml Multivitamins/Minerals (Theragran/Minerals Tab*) 1 tab PO DAILY [facility] Last Admin: 09/22/19 07:50 Dose: 1 tab Ondansetron HCl (Zofran Inj*) 4 mg IV Q4H PRN PRN Reason: NAUSEA/VOMITING Polyethylene Glycol/Electrolytes (Miralax*) 17 gm PO DAILY PRN PRN Reason: CONSTIPATION Last Admin: 09/22/19 07:49 Dose: 17 gm Senna (Senokot 8.6 Mg Tab*) 1 tab PO BID PRN PRN Reason: CONSTIPATION Last Admin: 09/22/19 07:50 Dose: 1 tab Vitamin B Complex/Vitamin E (B Complex-50*) 1 tab PO DAILY [facility] Last Admin: 09/22/19 07:50 Dose: 1 tab Vital Signs - 8 hr 09/22/19 09/22/19 03:15 07:36 Temperature 98.7 F 97.9 F Pulse Rate 54 68 Respiratory 16 16 Rate Blood Pressure 145/61 150/85 (mmHg) O2 Sat by Pulse 100 100 Oximetry Oxygen Devices in Use Now: None Appearance: Elderly male, lying in bed, not in distress Eyes: PERRLA Ears/Nose/Mouth/Throat: Mucous Membranes Moist Respiratory: Symmetrical Chest Expansion and Respiratory Effort, Clear to Auscultation Cardiovascular: NL Sounds; No Murmurs; No JVD, RRR, No Edema Abdominal: NL Sounds; No Tenderness; No Distention, No Hepatosplenomegaly, - - Non-tender abdomen. no distention. Normoactive bowel sounds Neurological: Alert and Oriented x 3 Result Diagrams: 09/22/19 05:09 09/22/19 05:09 Assess/Plan/Problems-Billing Assessment: This is a 74 year old man with history of HTN, aortic regurgitation, chronic constipation, and MDS who was admitted 09/20 with syncope and complains of ongoing abdominal pain and constipation - Patient Problems (1) Syncope Current Visit: Yes Status: Acute Code(s): R55 - SYNCOPE AND COLLAPSE SNOMED Code(s): 282562272 Comment: Bradycardia and Aortic regurgitaton contributing to the syncope. Metoprolol has been discontinued complaint inspector: Dr. Minor following, for stress test 09/23. (2) Constipation Current Visit: Yes Status: Acute Code(s): K59.00 - CONSTIPATION, UNSPECIFIED SNOMED Code(s): 32193415 Comment: on mag citrate, miralax, suppository was added yesterday has weight loss, and consitpation-- CT abd/pelvis done - did not show any acute issues, or any etiology that could be contributing. It did show signs suggestive of diarrhea. He will require work up- krystal poole- but per patient he had c-scope a month ago in [place]- but we do not have further information on this. (3) MDS (myelodysplastic syndrome) Current Visit: Yes Status: Acute Code(s): D46.9 - MYELODYSPLASTIC SYNDROME, UNSPECIFIED SNOMED Code(s): 843844520 Comment: at baseline, follows with Dr. Encarnacion; case reviewed with Dr. Sharif. neutropenia at this level not concerning in MDS. (4) Essential (primary) hypertension Current Visit: Yes Status: Acute Code(s): I10 - ESSENTIAL (PRIMARY) HYPERTENSION SNOMED Code(s): 83418828 Comment: due to syncope, home metoprolol was discontinued continue lisinopril. having elevated BP- amlodipine has been added.
[2019-09-22] MEDS: amLODIPine TAB* 5 MG PO SCH (11:54)
[2019-09-22] MEDS: Enoxaparin(*) 40 MG/0.4 ML SYR SUBCUT SCH (15:53)
[2019-09-23] MEDS: Magnesium Hydroxide LIQ* 30 ML UDC PO PRN (00:54)
[2019-09-23] MEDS: Lisinopril TAB* 10 MG PO SCH (11:58)
[2019-09-23] MEDS: amLODIPine TAB* 5 MG PO SCH (11:59)
[2019-09-23] MEDS: Lactobacillus Acidophilus* 1 TAB PO SCH (11:59)
[2019-09-23] MEDS: Multivitamins/Minerals TAB PO SCH (11:59)
[2019-09-23] MEDS: Vitamin B Complex TAB PO SCH (12:01)
--- NOTE | 2019-09-23 12:14 | PN ---
Subjective Date of Service: 09/23/19 Interval History: Went for stress test today, results of which are pending No chest pain. Patient has been having stomach issues and constipation complaints X several months with numerous ER visits. this morning states they did not give me my stool medications today, but was having liquid BM yesterday Family History: Unchanged from Admission Social History: Unchanged from Admission Past Medical History: Unchanged from Admission Objective Active Medications: Acetaminophen (Tylenol Tab*) 650 mg PO Q4H PRN PRN Reason: MILD PAIN or TEMP > 100.4 Last Admin: 09/23/19 00:54 Dose: 650 mg Al Hydrox/Mg Hydrox/Simethicone (Maalox Plus*) 30 ml PO Q6H PRN PRN Reason: INDIGESTION Last Admin: 09/21/19 11:05 Dose: 30 ml Amlodipine Besylate (Norvasc Tab*) 2.5 mg PO DAILY [facility] Last Admin: 09/23/19 11:59 Dose: 2.5 mg Bisacodyl (Dulcolax Supp*) 10 mg [place] DAILY PRN PRN Reason: CONSTIPATION Last Admin: 09/22/19 07:51 Dose: 10 mg Calcium Polycarbophil (Fibercon Tab*) 625 mg PO DAILY [facility] Enoxaparin Sodium (Lovenox(*)) 40 mg SUBCUT Q24H [facility] Last Admin: 09/22/19 15:53 Dose: 40 mg Lactobacillus Rhamnosus (Lactobacillus Acidophilus*) 1 tab PO DAILY [facility] Last Admin: 09/23/19 11:59 Dose: 1 tab Lactulose (Lactulose*) 15 ml PO BID PRN PRN Reason: CONSTIPATION Last Admin: 09/22/19 07:49 Dose: 15 ml Lisinopril (Prinivil Tab*) 40 mg PO DAILY [facility] Last Admin: 09/23/19 11:58 Dose: 40 mg Magnesium Hydroxide (Milk Of Magnesia Liq*) 30 ml PO Q4H PRN PRN Reason: CONSTIPATION Last Admin: 09/23/19 00:54 Dose: 30 ml Multivitamins/Minerals (Theragran/Minerals Tab*) 1 tab PO DAILY [facility] Last Admin: 09/23/19 11:59 Dose: 1 tab Ondansetron HCl (Zofran Inj*) 4 mg IV Q4H PRN PRN Reason: NAUSEA/VOMITING Polyethylene Glycol/Electrolytes (Miralax*) 17 gm PO DAILY PRN PRN Reason: CONSTIPATION Last Admin: 09/22/19 07:49 Dose: 17 gm Senna (Senokot 8.6 Mg Tab*) 1 tab PO BID PRN PRN Reason: CONSTIPATION Last Admin: 09/22/19 07:50 Dose: 1 tab Vitamin B Complex/Vitamin E (B Complex-50*) 1 tab PO DAILY [facility] Last Admin: 09/23/19 12:01 Dose: 1 tab Vital Signs - 8 hr 09/23/19 11:15 Temperature 98.8 F Pulse Rate 81 Respiratory 20 Rate Blood Pressure 149/91 (mmHg) O2 Sat by Pulse 100 Oximetry Oxygen Devices in Use Now: None Appearance: he is lying in bed, not in distress Respiratory: Symmetrical Chest Expansion and Respiratory Effort, Clear to Auscultation Cardiovascular: NL Sounds; No Murmurs; No JVD, RRR Abdominal: NL Sounds; No Tenderness; No Distention, No Hepatosplenomegaly Result Diagrams: 09/22/19 05:09 09/22/19 05:09 Assess/Plan/Problems-Billing Assessment: This is a 74 year old man with history of HTN, aortic regurgitation, chronic constipation, and MDS who was admitted 09/20 with syncope and complains of ongoing abdominal pain and constipation - Patient Problems (1) Syncope Current Visit: Yes Status: Acute Code(s): R55 - SYNCOPE AND COLLAPSE SNOMED Code(s): 050299452 Comment: Bradycardia and Aortic regurgitaton contributing to the syncope. Metoprolol has been discontinued electrical design engineer: Dr. Minor following, awaiting results for stress test orthostatic vitals ordered (2) Constipation Current Visit: Yes Status: Acute Code(s): K59.00 - CONSTIPATION, UNSPECIFIED SNOMED Code(s): 64184062 Comment: oonstipation with abdominal pain- ongoing X several months. CT here was negative for acute pathology- had liquid in colon suggestive of diarrhea he reports to me that he only has small amount of BM daily- he also does not eat much. CT abdomen is negative. reports he had a c-scope in [place]- results of which are unavaiable to us. will d/w PCP at this point will give fibercon supplements (3) MDS (myelodysplastic syndrome) Current Visit: Yes Status: Acute Code(s): D46.9 - MYELODYSPLASTIC SYNDROME, UNSPECIFIED SNOMED Code(s): 431211733 Comment: at baseline, follows with Dr. Encarnacion; case reviewed with Dr. Sharif. neutropenia at this level not concerning in MDS. (4) Essential (primary) hypertension Current Visit: Yes Status: Acute Code(s): I10 - ESSENTIAL (PRIMARY) HYPERTENSION SNOMED Code(s): 68353632 Comment: due to syncope, home metoprolol was discontinued continue lisinopril. today BP is elevated- but did not get meds this AM due to stress test. amlodipine added 09/22.
[2019-09-23] MEDS: Calcium Polycarbophil TAB* 625 MG PO SCH (14:29)
[2019-09-23] MEDS: Enoxaparin(*) 40 MG/0.4 ML SYR SUBCUT SCH (14:29)
[2019-09-23] MEDS: Polyethylene Glycol 3350* 17 GM PACKET PO PRN (19:33)
[2019-09-23] MEDS: Senna TAB 8.6 mg* TAB PO PRN (19:33)
[2019-09-24] MEDS: Polyethylene Glycol 3350* 17 GM PACKET PO PRN (07:30)
[2019-09-24] MEDS: Senna TAB 8.6 mg* TAB PO PRN (07:31)
[2019-09-24 07:58] VITALS: BP 164/86
[2019-09-24] MEDS: Calcium Polycarbophil TAB* 625 MG PO SCH (08:21)
[2019-09-24] MEDS: Lisinopril TAB* 10 MG PO SCH (08:21)
[2019-09-24] MEDS: Vitamin B Complex TAB PO SCH (08:21)
[2019-09-24] MEDS: Lactobacillus Acidophilus* 1 TAB PO SCH (08:22)
[2019-09-24] MEDS: Multivitamins/Minerals TAB PO SCH (08:22)
[2019-09-24] MEDS: amLODIPine TAB* 5 MG PO SCH (08:22)
[2019-09-24 14:42] LABS: Albumin 3.7 g/dL (3.4-4.7); Albumin/Globulin Ratio 1.34; Gamma Globulin 0.9 g/dL (0.6-1.6); Total Protein(PEP) 6.5 g/dL (6.3 - 7.9)
--- NOTE | 2019-09-24 15:22 | DS ---
CC: Dr. Kimberly Juarez DISCHARGE SUMMARY: DATE OF ADMISSION: 09/20/19 DATE OF DISCHARGE: 09/24/19 PRIMARY CARE PROVIDER: Dr. Juarez. CONSULTATIONS DURING THE HOSPITAL COURSE: Included Dr. Jackson Minor. REASON FOR THE ADMISSION: Syncope x2. DISCHARGE DIAGNOSES: 1. Syncope. 2. Bradycardia. 3. Chronic abdominal pain. 4. Hypertension. 5. Chronic constipation. 6. Essential hypertension. 7. Myelodysplastic syndrome. HOSPITAL COURSE: This is a 74-year-old male with past medical history of chronic constipation, chronic kidney disease, hypertension, benign pancreatic cyst, severe aortic regurgitation, who had presented to the emergency room after having syncopal episodes x2 at home. In the emergency room, the patient had EKG done, which showed sinus rhythm at a heart rate of 57. The patient was admitted to the hospital, Cardiology was consulted, telemetry was ordered. Home dose metoprolol was decreased and eventually discontinued throughout the hospitalization. The patient also had orthostatic vitals done which were negative for orthostatic hypotension. The patient also was complaining of abdominal pain and chronic constipation which is chronic for him. The patient also underwent a transthoracic echocardiogram, which revealed EF of 55% to 60%, also showed moderate aortic regurgitation. The patient was seen by roustabout supervisor , Dr. Minor who recommended a nuclear stress test as well as to decrease the metoprolol. Metoprolol was eventually discontinued. The patient was started on amlodipine for maintenance of his blood pressure. Because the patient was having abdominal pain, the patient also underwent aortic ultrasound, which showed atherosclerotic change with no evidence of aneurysm. The patient also had an abdominal pelvic CT done, which revealed no definitive acute process seen in the abdomen or pelvis. There was a fluid filled colon, may represent nonspecific diarrheal process, stable cyst in the pancreatic tail. I discussed the case with his primary care provider Dr. Juarez, who reported to me that the patient has had multiple colonoscopies, most recently in July 2019, which revealed a poor prep. Additionally, the patient has also had a pancreatic cyst biopsy which was benign. The patient had a nuclear stress test done which revealed low risk, no evidence of acute infarct or ischemia, slightly decreased EF. It was deemed that the patient was low risk. The patient also had orthostatic vitals done yesterday evening, which were negative for orthostatic vitals. Of note, the patient did have a soft bowel movement this morning. PHYSICAL EXAMINATION: Blood pressure of 139/78, oxygenation of 100% on room air , pulse of 75, temperature of 98.2 Fahrenheit. HEENT: Pupils are equal, round , and reactive to light. Atraumatic, normocephalic. There is no JVD. Neck is supple. Heart: Regular rate and rhythm. Soft systolic murmur heard at the right upper sternal border. Lungs are clear to auscultation without any wheezing, rales, or rhonchi. Abdomen is flat, soft, nontender, nondistended with normoactive bowel sounds. There is no lower extremity edema, no calf tenderness. The patient is awake, alert, and oriented x3 with no focal neurological deficits. DISCHARGE PLANNING: CONDITION: The patient's condition is stable. DISCHARGE DISPOSITION: Home. DISCHARGE DIET: High-fiber diet. DISCHARGE MEDICATIONS: Include: 1. Amlodipine 5 mg daily. 2. FiberCon 625 mg daily. 3. Lactobacillus 1 each daily. 4. Lactulose 15 mL b.i.d. as needed for constipation. 5. Lisinopril 40 mg daily. 6. Multivitamins 1 tab daily. 7. Polyethylene glycol 17 g daily as needed for constipation. 8. Vitamin B 1 tab daily. 9. Hydrocortisone 2.5% cream 1 application topical t.i.d. as needed for moderate pain. 10. Mag citrate 300 mg daily for constipation as needed. 11. Nitroglycerin 0.4% rectal ointment as needed for hemorrhoidal pain. [id number] #: [id number] MTDD
== END 2019-09-24 11:10 | disposition home or self-care (01) | DRG 312 ==
LOC: ED 11:35 → UNDOADMOB 14:46 → MEDTELE 14:46 → OBSVTOIN 09-21 09:00 → INTOOBSV 09-21 09:00 → UNDODISIN 09-24 11:10
PROVIDERS: ADMIT Internal Medicine; ATTEND Internal Medicine
PROC: 4A02XM4 Measurement of Cardiac Total Activity, External Approach (ICD-10-PCS; principal; 2019-09-23)
DX: R55 Syncope and collapse (principal); K86.2 Cyst of pancreas; R00.1 Bradycardia, unspecified; I35.0 Nonrheumatic aortic (valve) stenosis; M17.0 Bilateral primary osteoarthritis of knee; M19.042 Primary osteoarthritis, left hand; M19.041 Primary osteoarthritis, right hand; F17.290 Nicotine dependence, other tobacco product, uncomplicated; K59.09 Other constipation; I12.9 Hypertensive chronic kidney disease with stage 1 through stage 4 chronic kidney disease, or unspecified chronic kidney disease; N18.9 Chronic kidney disease, unspecified; D46.9 Myelodysplastic syndrome, unspecified; G89.29 Other chronic pain; R10.9 Unspecified abdominal pain; Z88.6 Allergy status to analgesic agent; Z82.3 Family history of stroke
CPT/HCPCS: 36415; 71045; 71046; 74018; 74177; 76775; 78452; 80048; 80053; 83735; 84155; 84165; 84443; 84484; 85025; 85652; 86140; 93005; 93017; 93306; 99283; A9270-GY; A9502; G0378; J1650; Q9967

== ENCOUNTER 2019-09-25 15:46 | Emergency (ER) | payer MEDICARE, MEDICAID ==
--- OUTSIDE RECORDS SUMMARY | 2019-09-25 16:16 | XMS REPORT | Continuity of Care Document ---
:1945 External Reference #:[id number] Author Name Jackson Minor M.D. 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 Medicine Problems Description No Information Available Social History Type Date Description Comments Sex Unknown Tobacco Use Start: Unknown Patient is a current cigars sometimes smoker, smokes some days Smoking Status Reviewed: 01/27/19 Patient is a current cigars sometimes smoker, smokes some days Exercise Type/Frequency Exercises regularly Allergies, Adverse Reactions, Alerts Active Allergies Reaction Severity Comments Date Aspirin 12/04/2018 Medications Active Medications SIG Qnty Indications Ordering Provider Date Atenolol 1 by mouth twice a Unknown 100mg Tablets day Lisinopril 1 by mouth every Unknown 40mg Tablets day Tramadol HCL 1-2 tablets by Unknown 50mg mouth every 6 Tablets hours as needed pain Probiotic 1 by mouth every Unknown Capsules day Vitamin B-12 1 by mouth every Unknown Natural day 500mcg Tablets Ibuprofen 1-2 tab every 6 Unknown 400mg Tablets hours as needed Preparation H insert rectally Unknown every 8 hours as 1-0.25-14.4-15% Cream needed Immunizations Description No Information Available Vital Signs Date Vital Result Comment 01/27/2019 2:09pm Heart Rate 84 /min Respiratory Rate 18 /min Body Temperature 99.3 F 01/22/2019 1:43pm Heart Rate 66 /min BP Systolic Sitting 140 mmHg BP Diastolic Sitting 80 mmHg Respiratory Rate 18 /min Body Temperature 99.3 F Results Description No Information Available Procedures Description No Information Available Medical Devices Description No Information Available Encounters Type Date Location Provider Dx Diagnosis Office Visit 05/20/2019 [facility] Allie Galvin, K59.00 Constipation, 1:13p tariq Ludwig MD unspecified Hospitalists D72.819 Decreased white blood cell count, unspecified 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 05/19/2019 D72.819 Decreased white blood cell count, unspecified Claribel Mccarty M.D. Plan of Treatment 01/27/2019 - Aydin Means MDK64.2 Third degree [id number] Pelvic and perineal painFollow up:None needed Follow up with Dr. Caruso Functional Status Description No Information Available Mental Status Description No Information Available Referrals Description No Information Available
--- OUTSIDE RECORDS SUMMARY | 2019-09-25 16:16 | XMS REPORT | Continuity of Care Document ---
:1945 External Reference #:[id number] Author Name Jackson Minor M.D. 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 [...] 01/27/2019 - Aydin Means MDK64.2 Third degree [id number] Pelvic and perineal painFollow up:None needed Follow up with Dr. Caruso Functional Status Description No Information Available Mental Status Description No Information Available Referrals Description No Information Available
--- NOTE | 2019-09-25 16:49 | ED ---
Abdominal Pain/Male - HPI Summary HPI Summary: Patient is a 74 y/o M presenting to the ED for a chief complaint of suprapubic abdominal pain and constipation. He last had a bowel movement on 09/25/19 that he describes as soft in consistency. He believes he has a hernia or hemorrhoid because he states he can feel something "coming out" of his rectum when he has a bowel movement. He also reports rectal bleeding, but none at the present time. The abdominal pain worsens with eating. He ate chicken soup on 09/25/19 without relief. Patient denies fever or headache. He was previously seen at [facility] for the same symptoms in the past and saw a engagement engineer to which he was referred. - History of Current Complaint Chief Complaint: EDAbdPain Stated Complaint: CONSTIPATION/ABDOMINAL PAIN PER EMS Time Seen by Provider: 09/25/19 16:07 Hx Obtained From: Patient Onset/Duration: Gradual Onset, Still Present Timing: Intermittent Severity Initially: Severe Severity Currently: Severe Pain Intensity: 10 Pain Scale Used: 0-10 Numeric Location: Suprapubic Radiates: No Aggravating Factor(s): Food - Eating Alleviating Factor(s): Nothing Associated Signs And Symptoms: Positive: Constipation. Negative: Fever - Allergies/Home Medications Allergies/Adverse Reactions: Allergies Allergy/AdvReac Type Severity Reaction Status Date / Time aspirin Allergy Bleeding Verified 09/16/19 10:18 PMH/Surg Hx/FS Hx/Imm Hx Previously Healthy: Yes Endocrine/Hematology History: Denies: Hx Diabetes Cardiovascular History: Reports: Hx Hypertension - ON DAILY MEDS Denies: Hx Pacemaker/ICD Respiratory History: Denies: Hx Asthma GI History: Reports: Other GI Disorders - Hemorrhoids History: Denies: Hx Renal Disease Musculoskeletal History: Reports: Hx Arthritis - HANDS, KNEES Sensory History: Reports: Hx Contacts or Glasses - WILL NOT BE WEARING DAY OF SURGERY Denies: Hx Legally Blind, Hx Deafness, Hx Hearing Aid Opthamlomology History: Reports: Hx Contacts or Glasses - WILL NOT BE WEARING DAY OF SURGERY Denies: Hx Legally Blind EENT History: Denies: Hx Deafness Neurological History: Denies: Hx Dementia Psychiatric History: Denies: Hx Panic Disorder, Hx Suicide Attempt, Hx of Violent Episodes Against Others - Surgical History Surgical History: Yes Surgery Procedure, Year, and Place: pt eyelid cut with ontiveros 20 years ago so had surgery to stich cut together. Hemorrhoidectomy Hx Anesthesia Reactions: No Infectious Disease History: No Infectious Disease History: Denies: Traveled Outside the [place] in Last 30 Days - Family History Known Family History: Negative: Cardiac Disease, Hypertension, Diabetes, Respiratory Disease, Blood Disorder - Social History Occupation: Unemployed Alcohol Use: None Hx Substance Use: Yes Substance Use Type: Reports: Marijuana Substance Use Comment - Amount & Last Used: once in a while Hx Tobacco Use: Yes - previous cig smoking, now cigars Smoking Status (MU): Light Every Day Tobacco Smoker Type: Cigars Amount Used/How Often: 2-3 CIGARS/DAY 35 YRS Have You Smoked in the Last Year: Yes Review of Systems Negative: Fever Positive: Abdominal Pain - Suprapubic, Other - Positive constipation, sensation of something "coming out" of the rectum Positive: other - Positive rectal bleeding, not at this time Negative: Headache All Other Systems Reviewed And Are Negative: Yes Physical Exam - Summary Physical Exam Summary: Constitutional: Well-developed, Well-nourished, Alert. (-) Distressed Skin: Warm, Dry HENT: Normocephalic; Atraumatic Eyes: Conjunctiva normal Neck: Musculoskeletal ROM normal neck. (-) JVD, (-) Stridor, (-) Nuchal rigidity Cardio: Rhythm regular, rate normal, Heart sounds normal; Intact distal pulses; Radial pulses are 2+ and symmetric. (-) Murmur Pulmonary/Chest wall: Effort normal. (-) Respiratory distress, (-) Wheezes, (-) Rales Abd: Soft, (-) tenderness, (-) Distension, (-) Guarding, (-) Rebound Musculoskeletal: (-) Edema Lymph: (-) Cervical adenopathy Neuro: Alert, Oriented x3 Psych: Mood and affect Normal Rectal: August Bortz is present for the exam. External hemorrhoids. Triage Information Reviewed: Yes Vital Signs On Initial Exam: Initial Vitals Temp Pulse Resp BP Pulse Ox 98.4 F 79 16 150/85 98 09/25/19 15:53 09/25/19 15:53 09/25/19 15:53 09/25/19 15:53 09/25/19 15:53 Vital Signs Reviewed: Yes Procedures - Sedation Patient Received Moderate/Deep Sedation with Procedure: No Diagnostics - Vital Signs Vital Signs Temp Pulse Resp BP Pulse Ox 09/25/19 15:53 98.4 F 79 16 150/85 98 - Laboratory Result Diagrams: 09/25/19 17:14 09/25/19 17:14 Lab Statement: Any lab studies that have been ordered have been reviewed, and results considered in the medical decision making process. Abdominal Pain Male Course/Dx - Course Course Of Treatment: 74-year-old male with long-standing history of constipation , external hemorrhoids who presents with anterior abdominal pain. - Physical exam well-appearing, abdomen soft, external hemorrhoid on rectal. - Labs notable for stable hemoglobin, orthostatics unremarkable. Patient advised that he must follow up with GI had extensive workup including 2 CT scans and colonoscopy. Suspect he may have some component of rectal prolapse secondary to constipation but nothing on exam today - Diagnoses Provider Diagnoses: Abdominal pain Discharge ED - Sign-Out/Discharge Documenting (check all that apply): Patient Departure - Discharge - Discharge Plan Condition: Stable Disposition: HOME Patient Education Materials: Abdominal Pain (ED) Referrals: Kimberly Juarez MD [Primary Care Provider] - Trudi Cordoba MD [Medical Doctor] - Additional Instructions: You were seen in the emergency department for abdominal pain. It is important that you follow up with GI regarding your pain. It is very difficult for us to assess chronic abdominal pain in the ER. Your CT scans have not shown any abnormalities. Please follow up with your primary care doctor in next 2-3 days and return to emergency department for worsening pain, passing out, or concerning symptoms. It was a pleasure taking care of you today. - Billing Disposition and Condition Condition: STABLE Disposition: Home - Attestation Statements Document Initiated by Jordonibe: Yes Documenting Scribe: Irene Morel Provider For Whom Tim is Documenting (Include Credential): Ar Whitlock MD Scribe Attestation: I, Irene Morel, scribed for Ar Whitlock MD on 09/25/19 at 1854. Scribe Documentation Reviewed: Yes Provider Attestation: The documentation as recorded by the Irene ahumada accurately reflects the service I personally performed and the decisions made by me, Ar Whitlock MD Status of Scribe Document: Viewed
[2019-09-25 17:20] LABS: ABS Lymphocytes 1.1 10^3/ul (1.0-4.8); ABS Monocytes 0.4 10^3/ul (0-0.8); ABS Neutrophils 2.2 10^3/ul (1.5-7.7); Eosinophil % 0.9 %; Hematocrit 40 % (42-52); Hemoglobin 13.8 g/dL (14.0-18.0); Lymphocyte % 28.5 %; Mean Corpuscular HGB Conc 35 g/dL (31-36); Mean Corpuscular Hemoglobin 35 pg (27-31); Mean Corpuscular Volume 101 fL (80-94); Mean Platelet Volume 8.3 fL (7.4-10.4); Platelet Count 197 10^3/uL (150-450); Red Blood Count 3.92 10^6 /uL (4.18-5.48); Red Cell Distribution Width 15 % (10-15); White Blood Count 3.8 10^3/uL (3.5-10.8)
[2019-09-25 17:36] LABS: Albumin 4.6 g/dL (3.2-5.2); Albumin/Globulin Ratio 1.9 (1-3); BUN/Creatinine Ratio 10.8 (8-20); Calcium 9.7 mg/dL (8.6-10.3); EGFR African American 71.8 (>60); EGFR Non-African American 59.3 (>60); Globulin 2.4 g/dL (2-4); Potassium 3.9 mmol/L (3.5-5.0); Total Bilirubin 0.4 mg/dL (0.2-1.0)
[2019-09-25 18:31] VITALS: BP 141/89
== END 2019-09-25 18:00 | disposition home or self-care (01) ==
LOC: ED 15:46
DX: R10.9 Unspecified abdominal pain (principal); I10 Essential (primary) hypertension; F17.200 Nicotine dependence, unspecified, uncomplicated; Z79.899 Other long term (current) drug therapy; Z88.8 Allergy status to other drugs, medicaments and biological substances
CPT/HCPCS: 36415; 80053; 85025; 99282

== ENCOUNTER 2019-10-01 14:01 | Emergency (ER) | payer MEDICARE, MEDICAID ==
[2019-10-01 14:47] VITALS: BP 147/75
--- NOTE | 2019-10-01 15:34 | UC ---
Lower Extremity/Ankle HPI - HPI Summary HPI Summary: 74 yo male presents s/p fall. He tells me that yesterday he twisted his right ankle and fell landing on his right hand. Did not hit his head. Today has pain and swelling in right hand and right foot. Says ROM is much better, but is concerned about the swelling. Nothing OTC for pain. He denies numbness or tingling. - History of Current Complaint Chief Complaint: UCLowerExtremity Stated Complaint: ANKLE PAIN Time Seen by Provider: 10/01/19 15:34 Hx Obtained From: Patient Onset/Duration: Sudden Onset Severity Initially: Severe Severity Currently: Severe Pain Intensity: 10 Pain Scale Used: 0-10 Numeric - Allergies/Home Medications Allergies/Adverse Reactions: Allergies Allergy/AdvReac Type Severity Reaction Status Date / Time aspirin Allergy Bleeding Verified 10/01/19 14:47 PMH/Surg Hx/FS Hx/Imm Hx - Additional Past Medical History Additional PMH: MDS Cardiovascular History: Hypertension - Surgical History Surgical History: Yes Surgery Procedure, Year, and Place: pt eyelid cut with ontiveros 20 years ago so had surgery to stich cut together. Hemorrhoidectomy - Family History Known Family History: Negative: Cardiac Disease, Hypertension, Diabetes, Respiratory Disease, Blood Disorder - Social History Lives: With Family Alcohol Use: None Substance Use Type: Marijuana Substance Use Comment - Amount & Last Used: once in a while Smoking Status (MU): Light Every Day Tobacco Smoker Type: Cigars Amount Used/How Often: 2-3 CIGARS/DAY 35 YRS Have You Smoked in the Last Year: Yes Household Exposure Type: Cigars - Immunization History Most Recent Influenza Vaccination: 2018 Most Recent Pneumonia Vaccination: received in past Review of Systems All Other Systems Reviewed And Are Negative: No Constitutional: Positive: Negative Skin: Positive: Negative Respiratory: Positive: Negative Cardiovascular: Positive: Negative Neurovascular: Positive: Negative Musculoskeletal: Positive: Other: - Right hand and foot injury Neurological: Positive: Negative Psychological: Positive: Negative Physical Exam - Summary Physical Exam Summary: GENERAL: NAD. WDWN. No pain distress. SKIN: No rashes, sores, lesions, or open wounds. CHEST: No accessory muscle use. Breathing comfortably and in no distress. CV: Pulses intact radial and ulnar. Cap refill <2seconds MSK: RIGHT HAND: Mild edema about whole hand. NTTP. FROM. 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 No snuffbox tenderness. RIGHT FOOT: Dorsal aspect with mild edema. NTTP. FROM all toes NEURO: Alert. Sensations intact hand and all fingers. PSYCH: Age appropriate behavior. Triage Information Reviewed: Yes Vital Signs: Initial Vital Signs Temp 98.9 F 10/01/19 14:42 Pulse 68 10/01/19 14:42 Resp 18 10/01/19 14:42 BP 147/75 10/01/19 14:42 Pulse Ox 100 10/01/19 14:42 Vital Signs Reviewed: Yes Diagnostics - Radiology FOOT XR Radiology Interpretation Completed By: Radiologist Summary of Radiographic Findings: IMPRESSION: 1. SHARPLY MARGINATED EROSION OF THE HEAD OF THE FIFTH METATARSAL. THE DIFFERENTIAL INCLUDES A CRYSTALLINE ARTHROPATHY. 2. OSTEOARTHRITIS. 3. NO ACUTE OSSEOUS INJURY. IF SYMPTOMS PERSIST , RECOMMEND REPEAT IMAGING HAND XR Radiology Interpretation Completed By: Radiologist Summary of Radiographic Findings: IMPRESSION: 1. CHRONIC TEAR OF THE SCAPHOLUNATE LIGAMENT. 2. MODERATE TO SEVERE OSTEOARTHRITIC CHANGES DESCRIBED. Lower Extremity Course/Dx - Course Course Of Treatment: XRs as above. Suspect contusion/strain of foot and hand. BHARATHI wrapped foot and will rx for voltaren gel for his discomfort. RICE - Differential Dx/Diagnosis Provider Diagnosis: Foot sprain, Hand contusion Discharge ED - Sign-Out/Discharge Documenting (check all that apply): Patient Departure All imaging exams completed and their final reports reviewed: Yes - Discharge Plan Condition: Stable Disposition: HOME Prescriptions: Diclofenac 1% GEL (NF) [Voltaren 1% GEL (NF)] 1 applic TOPICAL BID PRN #1 tube PRN Reason: Pain - Mild Patient Education Materials: Foot Sprain (ED) Referrals: Kimberly Juarez MD [Primary Care Provider] - Additional Instructions: If you develop a fever, shortness of breath, chest pain, new or worsening symptoms - please call your PCP or go to the ED immediately. Your blood pressure was high at todays visit. Please see your primary provider within 4 weeks for recheck and re-evaluation. The X-ray of your foot was normal today. Use the BHARATHI wrap intermittently throughout the day to reduce pain and swelling Use the voltaren gel topically to the foot for pain as directed - Billing Disposition and Condition Condition: STABLE Disposition: Home
== END 2019-10-01 16:29 | disposition home or self-care (01) ==
LOC: UCEAST 14:01
DX: S93.601A Unspecified sprain of right foot, initial encounter (principal); S60.221A Contusion of right hand, initial encounter; I10 Essential (primary) hypertension; F17.290 Nicotine dependence, other tobacco product, uncomplicated; X50.1XXA Overexertion from prolonged static or awkward postures, initial encounter; Y92.9 Unspecified place or not applicable; Z88.6 Allergy status to analgesic agent
CPT/HCPCS: 99212; G0463

== ENCOUNTER 2019-10-02 10:25 | Emergency (ER) | payer MEDICARE, MEDICAID ==
--- NOTE | 2019-10-02 11:11 | ED ---
Adult Trauma - HPI Summary HPI Summary: 74 y/o male presented to [facility] after a fall yesterday when he tripped. He states that he was walking in his kitchen when he tripped and grabbed onto the door. He is experiencing pain in the lateral aspect of his right hand as well as his right wrist and the top of his right foot. He feels bilateral tingling in his toes and pain in the right hip characterized as described as a "heavy weight being on him." Pain is rated 10/10 in severity. 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 - History of Current Complaint Chief Complaint: EDFall Stated Complaint: RT ANKLE INJ FROM FALL PER PT Time Seen by Provider: 10/02/19 10:52 Hx Obtained From: Patient Mechanism of Injury: Fall Ambulatory at the Scene: Yes Onset/Duration: Still Present Onset of Pain: Immediate Current Severity: Severe Pain Intensity: 10 Pain Scale Used: 0-10 Numeric Location: Extremities - right hand, wrist, foot, Other - right hip Character: Pressure - hip Alleviating Factor(s): Nothing Associated Signs & Symptoms: Positive: Numbness/Weakness - toes of right foot - Allergy/Home Medications Allergies/Adverse Reactions: Allergies Allergy/AdvReac Type Severity Reaction Status Date / Time aspirin Allergy Bleeding Verified 10/02/19 10:31 PMH/Surg Hx/FS Hx/Imm Hx Endocrine/Hematology History: Denies: Hx Diabetes Cardiovascular History: Reports: Hx Hypertension - ON DAILY MEDS Denies: Hx Pacemaker/ICD Respiratory History: Denies: Hx Asthma GI History: Reports: Other GI Disorders - Hemorrhoids History: Denies: Hx Renal Disease Musculoskeletal History: Reports: Hx Arthritis - HANDS, KNEES Sensory History: Reports: Hx Contacts or Glasses - WILL NOT BE WEARING DAY OF SURGERY Denies: Hx Legally Blind, Hx Deafness, Hx Hearing Aid Opthamlomology History: Reports: Hx Contacts or Glasses - WILL NOT BE WEARING DAY OF SURGERY Denies: Hx Legally Blind Neurological History: Denies: Hx Dementia Psychiatric History: Denies: Hx Panic Disorder, Hx Suicide Attempt, Hx of Violent Episodes Against Others - Surgical History Surgical History: Yes Surgery Procedure, Year, and Place: pt eyelid cut with ontiveros 20 years ago so had surgery to stich cut together. Hemorrhoidectomy Hx Anesthesia Reactions: No Infectious Disease History: No Infectious Disease History: Denies: Traveled Outside the [place] in Last 30 Days - Family History Known Family History: Negative: Cardiac Disease, Hypertension, Diabetes, Respiratory Disease, Blood Disorder - Social History Alcohol Use: None Hx Substance Use: Yes Substance Use Type: Reports: Marijuana Substance Use Comment - Amount & Last Used: once in a while Hx Tobacco Use: Yes - previous cig smoking, now cigars Smoking Status (MU): Light Every Day Tobacco Smoker Type: Cigars Amount Used/How Often: 2-3 CIGARS/DAY 35 YRS Have You Smoked in the Last Year: Yes Review of Systems Positive: Other - pain in right foot, right hip, right hand Positive: Numbness - toes of right foot All Other Systems Reviewed And Are Negative: Yes Physical Exam - Summary Physical Exam Summary: Constitutional: Well-developed, Elderly male, NAD Skin: Warm, Dry HENT: Normocephalic; Atraumatic Eyes: Conjunctiva normal Neck: Musculoskeletal ROM normal neck. (-) JVD, (-) Stridor, (-) Nuchal rigidity Cardio: Rhythm regular, rate normal, Heart sounds normal; Intact distal pulses; Radial pulses are 2+ and symmetric. (-) Murmur Pulmonary/Chest wall: Effort normal. (-) Respiratory distress, (-) Wheezes, (-) Rales Abd: Soft, (-) tenderness, (-) Distension, (-) Guarding, (-) Rebound Musculoskeletal: (-) Edema, Swelling in dorsum of right hand, no snuff box tenderness, no wrist pain. Swelling of the dorsum of the right foot. 2+ DP pulse on right. No tenderness of right knee, tibia, fibula, or femur. Mild right hip pain. Lymph: (-) Cervical adenopathy Neuro: Alert, Oriented x3 Psych: Mood and affect Normal Triage Information Reviewed: Yes Vital Signs On Initial Exam: Initial Vitals Temp Pulse Resp BP Pulse Ox 97.5 F 62 19 137/99 99 10/02/19 10:28 10/02/19 10:28 10/02/19 10:28 10/02/19 10:28 10/02/19 10:28 Vital Signs Reviewed: Yes Procedures - Sedation Patient Received Moderate/Deep Sedation with Procedure: No Diagnostics - Vital Signs Vital Signs Temp Pulse Resp BP Pulse Ox 10/02/19 10:28 97.5 F 62 19 137/99 99 - Laboratory Lab Statement: Any lab studies that have been ordered have been reviewed, and results considered in the medical decision making process. - Radiology Hip/Pelvis XR Radiology Interpretation Completed By: Radiologist Summary of Radiographic Findings: IMPRESSION: No fracture of the right hip or pelvis is noted. This report was reviewed by the ED physician. abd/pel Radiology Interpretation Completed By: Radiologist Summary of Radiographic Findings: IMPRESSION: No fracture of the right hip or pelvis is noted. This report was reviewed by the ED physician. Re-Evaluation - Re-Evaluation First Eval Re-Evaluation Time: 12:50 Change: Improved - XR neg for fracture, ambulating in ED Adult Trauma Course/Dx - Course Assessment/Plan: 74 y/o male w hx constipation p/w R hand, R foot, and R hip pain after fall. - Is negative films of the right hand and right foot, mild swelling on the dorsal aspects of both. Given Lui wrap for his foot. Patient ambulating NAD. Patient also reporting mild posterior hip pain well check a x- ray. Low suspicion for fracture. Patient has a history of chronic constipation , and rectal pain complaints. No new complaints today. Has GI appointment on Friday - Diagnoses Provider Diagnoses: Hip pain, Fall Discharge ED - Sign-Out/Discharge Documenting (check all that apply): Patient Departure - dc - Discharge Plan Condition: Stable Disposition: HOME Patient Education Materials: Fall Prevention for Older Adults (ED) Print Language: ITALIAN Referrals: Kimberly Juarez MD [Primary Care Provider] - 3 Days Additional Instructions: You were seen in the emergency department for pain after fall. Your x-rays did not show any acute fractures. Please follow up with GI on Friday for your appointment. Please follow up with your primary care doctor in the next 2-3 days and return to the emergency department for worsening or concerning symptoms. It was a pleasure taking care of you today. - Billing Disposition and Condition Condition: STABLE Disposition: Home - Attestation Statements Document Initiated by Scribe: Yes Documenting Scribe: Veda Erwin Provider For Whom Tim is Documenting (Include Credential): Dr. Ar Whitlock MD Scribe Attestation: Veda Johnson, scribed for Dr. Ar Whitlock MD on 10/02/19 at 1308. Scribe Documentation Reviewed: Yes Provider Attestation: The documentation as recorded by the scribe, Veda Erwin accurately reflects the service I personally performed and the decisions made by me, Dr. Ar Whitlock MD Status of Tim Document: Viewed
[2019-10-02 13:15] VITALS: BP 141/76
== END 2019-10-02 13:01 | disposition home or self-care (01) ==
LOC: ED 10:25
DX: M25.551 Pain in right hip (principal); M25.531 Pain in right wrist; M79.641 Pain in right hand; M79.671 Pain in right foot; R20.0 Anesthesia of skin; R53.1 Weakness; I10 Essential (primary) hypertension; Z88.6 Allergy status to analgesic agent; F17.290 Nicotine dependence, other tobacco product, uncomplicated; W01.0XXA Fall on same level from slipping, tripping and stumbling without subsequent striking against object, initial encounter; Y93.01 Activity, walking, marching and hiking; Y92.000 Kitchen of unspecified non-institutional (private) residence as the place of occurrence of the external cause
CPT/HCPCS: 99282

== ENCOUNTER 2019-10-03 16:02 | Emergency (ER) | payer MEDICARE, MEDICAID ==
--- NOTE | 2019-10-03 16:47 | ED ---
Abdominal Pain/Male - HPI Summary HPI Summary: Patient is a 74 y/o M presenting to the ED for a chief complaint of constipation. Patient notes having a bowel movement on 10/03/19, but states he feels he has constipation. He also notes diffuse abdominal pain and rectal pain. He rates his abdominal pain as 10/10 in severity. Patient denies fever, nausea, vomiting, or diarrhea. He denies any aggravating or alleviating factors. Patient has had several visits to [facility] in the past for similar symptoms. He has a gastroenterology follow up appointment scheduled for at 11:45 AM. PMHx is significant for hypertension, but hypercholesterolemia or diabetes mellitus is denied. - History of Current Complaint Chief Complaint: EDConstipation Stated Complaint: ABD PAIN/WEAKNESS PER PT Time Seen by Provider: 10/03/19 16:19 Hx Obtained From: Patient Onset/Duration: Sudden Onset, Still Present Timing: Constant Severity Initially: Severe Severity Currently: Severe Pain Intensity: 10 Pain Scale Used: 0-10 Numeric Location: Diffuse Radiates: No Aggravating Factor(s): Nothing Alleviating Factor(s): Nothing Associated Signs And Symptoms: Positive: Constipation. Negative: Fever, Nausea , Vomiting, Diarrhea - Allergies/Home Medications Allergies/Adverse Reactions: Allergies Allergy/AdvReac Type Severity Reaction Status Date / Time aspirin Allergy Bleeding Verified 10/03/19 16:06 PMH/Surg Hx/FS Hx/Imm Hx Previously Healthy: Yes Endocrine/Hematology History: Denies: Hx Diabetes Cardiovascular History: Reports: Hx Hypertension - ON DAILY MEDS Denies: Hx Hypercholesterolemia, Hx Pacemaker/ICD Respiratory History: Denies: Hx Asthma GI History: Reports: Other GI Disorders - Hemorrhoids History: Denies: Hx Renal Disease Musculoskeletal History: Reports: Hx Arthritis - HANDS, KNEES Sensory History: Reports: Hx Contacts or Glasses - WILL NOT BE WEARING DAY OF SURGERY Denies: Hx Legally Blind, Hx Deafness, Hx Hearing Aid Opthamlomology History: Reports: Hx Contacts or Glasses - WILL NOT BE WEARING DAY OF SURGERY Denies: Hx Legally Blind EENT History: Denies: Hx Deafness Neurological History: Denies: Hx Dementia Psychiatric History: Denies: Hx Panic Disorder, Hx Suicide Attempt, Hx of Violent Episodes Against Others - Surgical History Surgical History: Yes Surgery Procedure, Year, and Place: pt eyelid cut with ontiveros 20 years ago so had surgery to stich cut together. Hemorrhoidectomy Hx Anesthesia Reactions: No Infectious Disease History: No Infectious Disease History: Denies: Traveled Outside the [place] in Last 30 Days - Family History Known Family History: Negative: Cardiac Disease, Hypertension, Diabetes, Respiratory Disease, Blood Disorder - Social History Occupation: Unemployed Alcohol Use: None Hx Substance Use: Yes Substance Use Type: Reports: Marijuana Substance Use Comment - Amount & Last Used: once in a while Hx Tobacco Use: Yes - previous cig smoking, now cigars Smoking Status (MU): Light Every Day Tobacco Smoker Type: Cigars Amount Used/How Often: 2-3 CIGARS/DAY 35 YRS Have You Smoked in the Last Year: Yes Review of Systems Negative: Fever Positive: Abdominal Pain - Diffuse, Other - Positive constipation. Negative: Vomiting, Diarrhea, Nausea Positive: pain - Rectal All Other Systems Reviewed And Are Negative: Yes Physical Exam - Summary Physical Exam Summary: VITAL SIGNS: Reviewed. GENERAL: Patient is a well-developed and nourished male who is lying comfortable in the stretcher. Patient is not in any acute respiratory distress. HEAD AND FACE: Normocephalic and atraumatic. EYES: PERRLA, EOMI x 2, No injected conjunctiva. EARS: Hearing grossly intact. Ear canals and tympanic membranes are WNL. MOUTH: Oropharynx within normal limits. NECK: Supple, trachea is midline, no adenopathy, no JVD. CHEST: Symmetric, no tenderness at palpation. LUNGS: Clear to auscultation bilaterally. No wheezing or crackles. CVS: RRR, S1 and S2 present, no murmurs or gallops appreciated. ABDOMEN: Soft, non-tender. No signs of distention. Positive bowel sounds. No rebound, no guarding, and no masses palpated. No abdominal bruit or pulsations. EXTREMITIES: FROM in all major joints, no edema, no cyanosis or clubbing. NEURO: Alert and oriented x 3. No acute neurological deficits. Speech is normal. SKIN: Dry and warm. Triage Information Reviewed: Yes Vital Signs On Initial Exam: Initial Vitals Temp Pulse Resp BP Pulse Ox 99.3 F 68 16 180/92 98 10/03/19 16:04 10/03/19 16:04 10/03/19 16:04 10/03/19 16:04 10/03/19 16:04 Vital Signs Reviewed: Yes Procedures - Sedation Patient Received Moderate/Deep Sedation with Procedure: No Diagnostics - Vital Signs Vital Signs Temp Pulse Resp BP Pulse Ox 10/03/19 16:04 99.3 F 68 16 180/92 98 - Laboratory Lab Statement: Any lab studies that have been ordered have been reviewed, and results considered in the medical decision making process. - Radiology Abdomen X-ray Radiology Interpretation Completed By: Radiologist Summary of Radiographic Findings: Abdomen X-ray IMPRESSION: No free air or obstruction is noted. Reviewed by Dr. Youngblood. Abdominal Pain Male Course/Dx - Course Assessment/Plan: Patient is a 74 y/o M presenting to the ED for a chief complaint of constipation. Patient notes having a bowel movement on 10/03/19, but states he feels he has constipation. He also notes diffuse abdominal pain and rectal pain. He rates his abdominal pain as 10/10 in severity. Patient denies fever, nausea, vomiting, or diarrhea. He denies any aggravating or alleviating factors. Patient has had several visits to [facility] in the past for similar symptoms. He has a gastroenterology follow up appointment scheduled for 10/05/19 at 11:45 AM. PMHx is significant for hypertension, but hypercholesterolemia or diabetes mellitus is denied. Patient's rectal exam shows a normal sphincter tone, no rectal prolapse, no fissures, no gross blood or melena. Patient's recent blood work on 09/25/19 shows no acute abnormality. The CMP is normal. CBC is normal. CRP is also normal. Patient has had multiple abdominal pelvic CTs in the last couple months which shows no acute pathology. He also had multiple x-rays of the abdomen with no acute pathology. Patient continues to report that he is constipated however the abdomen x-ray shows no significant amount of stool in the bowel. I believe that the patient has tenesmus of an unknown etiology. Patient has an appointment with GI on Friday at 11:45 a.m., therefore, I will discharge the patient home with follow-up with GI. Patient has MiraLAX, lactulose, and magnesium sulfate at his home therefore he was recommended to take these OTC medications if recommended by GI. Patient understands and agrees. - Diagnoses Differential Diagnosis/HQI/PQRI: Constipation Provider Diagnoses: Tenesmus (rectal), Constipation Discharge ED - Sign-Out/Discharge Documenting (check all that apply): Patient Departure - Discharge - Discharge Plan Condition: Stable Disposition: HOME Patient Education Materials: Constipation (ED) Referrals: Kimberly Juarez MD [Primary Care Provider] - Additional Instructions: FOLLOW UP WITH YOUR PRIMARY CARE PROVIDER WITHIN 3 DAYS. RETURN TO THE EMERGENCY DEPARTMENT FOR ANY WORSENING OR NEW SYMPTOMS. Keep your appointment with your regional branch manager on Friday. - Billing Disposition and Condition Condition: STABLE Disposition: Home - Attestation Statements Document Initiated by Jordonibe: Yes Documenting Scribe: Irene Morel Provider For Whom Tim is Documenting (Include Credential): Brandon Youngblood MD Scribe Attestation: Irene Johnson, scribed for Brandon Youngblood MD on 10/03/19 at 1852. Scribe Documentation Reviewed: Yes Provider Attestation: The documentation as recorded by the Irene ahumada accurately reflects the service I personally performed and the decisions made by , Brandon Youngblood MD Status of Scribe Document: Viewed
[2019-10-03 18:41] VITALS: BP 186/102
== END 2019-10-03 18:43 | disposition home or self-care (01) ==
LOC: ED 16:02
DX: K59.00 Constipation, unspecified (principal); R19.8 Other specified symptoms and signs involving the digestive system and abdomen; I10 Essential (primary) hypertension; Z88.6 Allergy status to analgesic agent; F17.290 Nicotine dependence, other tobacco product, uncomplicated
CPT/HCPCS: 74019; 99282

== ENCOUNTER 2019-10-06 10:02 | Emergency (ER) | payer MEDICARE, MEDICAID ==
--- NOTE | 2019-10-06 10:10 | ED ---
Abdominal Pain/Male - HPI Summary HPI Summary: This patient is a 74 year old male brought in by EMS presenting to [facility] with a chief complaint of abdominal pain since yesterday. He states he went to his GI physician yesterday and that they said his blood pressure medication was making him sick. He states today he was experiencing constipation and blood in his stool. He states he experienced nausea and vomiting once yesterday night after drinking coffee. He states he had small bowel movements today. Medications reviewed, allergies noted. - History of Current Complaint Stated Complaint: ABD PAIN Time Seen by Provider: 10/06/19 10:03 Hx Obtained From: Patient Onset/Duration: Lasting Days Timing: Lasting Days Location: Diffuse Associated Signs And Symptoms: Positive: Constipation, Nausea, Vomiting - Allergies/Home Medications Allergies/Adverse Reactions: Allergies Allergy/AdvReac Type Severity Reaction Status Date / Time aspirin Allergy Bleeding Verified 10/06/19 10:16 PMH/Surg Hx/FS Hx/Imm Hx Endocrine/Hematology History: Denies: Hx Diabetes Cardiovascular History: Reports: Hx Hypertension - ON DAILY MEDS Denies: Hx Hypercholesterolemia, Hx Pacemaker/ICD Respiratory History: Denies: Hx Asthma GI History: Reports: Other GI Disorders - Hemorrhoids History: Denies: Hx Renal Disease Musculoskeletal History: Reports: Hx Arthritis - HANDS, KNEES Sensory History: Reports: Hx Contacts or Glasses - WILL NOT BE WEARING DAY OF SURGERY Denies: Hx Legally Blind, Hx Deafness, Hx Hearing Aid Opthamlomology History: Reports: Hx Contacts or Glasses - WILL NOT BE WEARING DAY OF SURGERY Denies: Hx Legally Blind Neurological History: Denies: Hx Dementia Psychiatric History: Denies: Hx Panic Disorder, Hx Suicide Attempt, Hx of Violent Episodes Against Others - Surgical History Surgery Procedure, Year, and Place: pt eyelid cut with ontiveros 20 years ago so had surgery to stich cut together. Hemorrhoidectomy Hx Anesthesia Reactions: No - Family History Known Family History: Negative: Cardiac Disease, Hypertension, Diabetes, Respiratory Disease, Blood Disorder - Social History Alcohol Use: None Hx Substance Use: Yes Substance Use Type: Reports: Marijuana Substance Use Comment - Amount & Last Used: once in a while Hx Tobacco Use: Yes - previous cig smoking, now cigars Smoking Status (MU): Light Every Day Tobacco Smoker Type: Cigars Amount Used/How Often: 2-3 CIGARS/DAY 35 YRS Have You Smoked in the Last Year: Yes Review of Systems Negative: Fever Positive: Abdominal Pain, Vomiting, Nausea, Other - Constipation, hematochezia All Other Systems Reviewed And Are Negative: Yes Physical Exam - Summary Physical Exam Summary: Constitutional: Well-developed, Well-nourished, Alert. (-) Distressed Skin: Warm, Dry HENT: Normocephalic; Atraumatic Eyes: Conjunctiva normal Neck: Musculoskeletal ROM normal neck. (-) JVD, (-) Stridor, (-) Tracheal deviation Cardio: Rhythm regular, rate tachycardic, Heart sounds normal; Intact distal pulses; Radial pulses are 2+ and symmetric. (-) Murmur Pulmonary/Chest wall: Effort normal. (-) Respiratory distress, (-) Wheezes, (-) Rales Abd: Soft, (-) tenderness, (-) Distension, (-) Guarding, (-) Rebound Musculoskeletal: (-) Edema Lymph: (-) Cervical adenopathy Neuro: Alert, Oriented x3 Psych: Mood and affect Normal Triage Information Reviewed: Yes Vital Signs On Initial Exam: Temp Pulse Resp BP Pulse Ox 98.3 F 103 18 147/91 99 10/06/19 10:05 10/06/19 10:05 10/06/19 10:05 10/06/19 10:05 10/06/19 10:05 Vital Signs Reviewed: Yes Procedures - Sedation Patient Received Moderate/Deep Sedation with Procedure: No Diagnostics - Laboratory Result Diagrams: 10/06/19 10:25 10/06/19 10:50 Lab Statement: Any lab studies that have been ordered have been reviewed, and results considered in the medical decision making process. - EKG 1049 Cardiac Rate: NL - 95 BPM EKG Rhythm: Sinus Rhythm EKG Comparison: No Significant Change - Relatively unchanged from 09/23/19. Summary of EKG Findings: LVH criteria met. No STEMI. ED Physician has reviewed and interpreted this EKG. Re-Evaluation - Re-Evaluation First Eval Re-Evaluation Time: 10:50 Comment: Patient still slightly tachycardic, states he did not take his medication this morning. Gave him his home medication that he brought with him. Abdominal Pain Male Course/Dx - Course Course Of Treatment: Patient is here with the sensation that he has to defecate. Patient is able to defecate small "balls" of stool. Patient has been doing with constipation chronically and saw his gastrologist yesterday. Patient also has a small amount of rectal bleeding for him and has been diagnosed with hemorrhoids in the past. Patient was initially tachycardic which improved after he took his by mouth metoprolol which he did not take this morning. Patient had his blood count repeated to make sure he was not bleeding out and his hemoglobin is at his baseline. Patient's CK D is at his baseline as well. Patient has a benign belly exam with no evidence of distention, no hard masses palpated, and no tenderness on exam. Patient does not appear to fully comprehend his constipation management. Patient is follow-up with his GI doctor on the and was encouraged to continue his medicines. Patient's had multiple CT scans in the past and does not need a repeat CT scan at this time. - Diagnoses Provider Diagnoses: Constipation Discharge ED - Sign-Out/Discharge Documenting (check all that apply): Patient Departure - Discharge - Discharge Plan Condition: Stable Disposition: HOME Patient Education Materials: Constipation (ED) Referrals: Kimberly Juarez MD [Primary Care Provider] - Additional Instructions: Continue your meds the GI physician prescribed yesterday. Let your primary care provider know about your problems. Return to the ED if you pass out. - Billing Disposition and Condition Condition: STABLE Disposition: Home - Attestation Statements Document Initiated by Tim: Yes Documenting Jordonibe: Deejay Daly Provider For Whom Tim is Documenting (Include Credential): Jerry Laureano MD Scribe Attestation: Deejay Johnson, scribed for Jerry Laureano MD on 10/06/19 at 1644. Scribe Documentation Reviewed: Yes Provider Attestation: The documentation as recorded by the Deejay ahumada accurately reflects the service I personally performed and the decisions made by me, Jerry Laureano MD Status of Tim Document: Viewed
[2019-10-06 10:37] LABS: ABS Eosinophils 0.1 10^3/ul (0-0.6); ABS Lymphocytes 1.1 10^3/ul (1.0-4.8); ABS Monocytes 0.6 10^3/ul (0-0.8); ABS Neutrophils 1.1 10^3/ul (1.5-7.7); Eosinophil % 3.2 %; Hematocrit 43 % (42-52); Lymphocyte % 38.3 %; Mean Corpuscular HGB Conc 35 g/dL (31-36); Mean Corpuscular Hemoglobin 36 pg (27-31); Mean Corpuscular Volume 101 fL (80-94); Mean Platelet Volume 7.9 fL (7.4-10.4); Nucleated Red Blood Cells % 0.1; Platelet Count 298 10^3/uL (150-450); Red Blood Count 4.19 10^6 /uL (4.18-5.48); Red Cell Distribution Width 15 % (10-15)
--- OUTSIDE RECORDS SUMMARY | 2019-10-06 10:39 | XMS REPORT | Summary of Care ---
:1945 Author Organization [facility] Address [address] [place] [address] Care Team Providers Name Role Phone Kimberly Juarez Primary Care Provider Reason for Visit Reason Comments Follow Up Constipation Encounter Details Date Type Department Care Team Description 10/05/2019 Office Visit [facility] Larry, Syncope, unspecified syncope type (Primary Dx); Practice MD Kimberly Bradycardia; [address] [facility] Chronic constipation; [place] [address] [place] [address] Injury of right ankle, sequela; [phone] Injury of right hand, sequela Allergies Active Allergy Reactions Severity Noted Date Comments Aspirin 12/07/2008 Rectal Bleed documented as of this encounter (statuses as of 10/05/2019) Medications Medication Sig Dispensed Refills Start End Status Date Date MULTIVITAMINS PO Take by mouth. 0 Active polyethylene Take 17 g by 3 Bottle 1 06/17/20 Active glycol (MIRALAX) mouth DAILY AT 18 Oral Powder 1400. B Complex Vitamins Take by mouth 0 Active (B-COMPLEX/B-12) DAILY. Oral Tab Probiotic Product Take by mouth [...] metoprolol TAKE 1 TABLET 180 Tab 1 08/02/20 Active (LOPRESSOR) 100 MG BY MOUTH TWICE 19 Oral Tab DAILY lactulose Take 15 mL by 450 mL 1 08/18/20 Active (CEPHULAC) 10 mouth TWO TIMES 19 GM/15ML Oral DAILY NEEDED Solution (constipation). lisinopril Take 1 Tab by 30 Tab 3 10/05/19 Active (PRINIVIL, mouth DAILY. 20 ZESTRIL) 40 MG Oral Tab amLodipine Take 5 mg by 0 Active (NORVASC) 5 MG mouth DAILY. Oral Tab lisinopril Take 1 Tab by 30 Tab 0 11/26/19 Discontinued (PRINIVIL, mouth DAILY. 19 020 (Reorder) ZESTRIL) 40 MG Oral Tab documented as of this encounter (statuses as of 10/05/2019) Active Problems Problem Noted Date Hyperplastic colonic polyp 10/06/2018 Abdominal mass 03/14/2017 Benign hypertension 03/14/2017 Lower GI bleed 03/14/2017 Right knee pain 08/14/2016 Illiteracy 06/06/2014 B12 deficiency 07/08/2012 Hyperlipidemia 12/07/2008 Osteoarthritis 12/07/2008 Diverticulosis 12/07/2008 Overview: S/P colonoscopy, 2005. Low back pain 12/07/2008 HTN (hypertension) AR (aortic regurgitation) Overview: mild to moderate documented as of this encounter (statuses as of 10/05/2019) Immunizations Name Administration Dates Next Due Influenza (IM) Preservative Free 06/07/2016, 07/01/2013, 08/31/2012, 06/24/2011, 07/26/2009 Influenza Vaccine High Dose 06/01/2019, 06/03/2018, 09/08/2015, 07/06/2014 PNEUMOCOCCAL POLYSACCHARIDE VACCINE 05/03/2011 Pneumococcal Conjugate(13 Valent) 03/22/2015 TDAP Vaccine 03/22/2015 ZOSTER (ZOSTAVAX) VACCINE 04/30/2017 documented as of [...] Sign Reading Time Taken Comments Blood Pressure 142/80 10/05/2019 1:57 PM EST Pulse 59 10/05/2019 1:57 PM EST Temperature 36.2 10/05/2019 1:57 PM EST C (97.1 F) Respiratory Rate - - Oxygen Saturation 99% 10/05/2019 1:57 PM EST Inhaled Oxygen Concentration - - Weight - - Height - - Body Mass Index - - documented in this encounter Patient Instructions Patient InstructionsKimberly Juarez MD - 10/05/2019 2:00 PM EST1. Reduce Metoprolol to 100 mg once a day 2. Start Norvasc 5 mg once a day 3. Follow up in 1 week for blood pressure check documented in this encounter Progress Notes Kimberly Juarez MD - 10/05/2019 2:00 PM EST Patient: Adrián Kumar Date of Service: 10/05/2019 Subjective: Adrián Kumar is a 74-y.o. male who presents for Chief Complaint Patient presents with Follow Up Constipation TCM Statement. Review of the hospitalization: I am seeing for transition of care following hospitalization. The date of discharge was: 09/24/19 The discharge diagnosis was Syncope.Bradycardia. I reviewed the discharge summary, discharge instructions, and pertinent additional documentation obtained during hospitalization. I reconciled the medications. I also reviewed the Transition of Care documentation done by staff. The tests that were not available at the time of discharge were reviewed. Coordination of care. (delete one and this [...] care. Specific education that was provided today: The current and discharge medications were reconciled by me, today The source document was hospital discharge summary Patient presented to [facility] on 09/20 with complains of syncope episodes x2 Patient developed syncope trying to have BM with intense straining (has history of severe constipation) No chest pain Patient was bradycardic at the ER. Was admitted to telemetry Metoprolol was tapered down. Started on Norvasc for BP control Nuclear stress test - low probability of significant CAD ECHO-- moderate AR Patient currently continues to take Metoprolol and never picked up Rx for Norvasc from the pharmacy Also seen at [facility] on 10/01 after falling and twisting his R ankle and landing on R outstretched arm R foot and R hand x-ray's: no acute findings Patient reports significant improvement of pain in R ankle and hand area Seen at [facility] on 10/03 with complains of abdominal pain and chronic constipation KUB - no acute findings Improved constipation on Lactulose and Miralax Past Medical History: Diagnosis Date AR (aortic regurgitation) mild to moderate B12 deficiency 07/08/2012 Diverticulosis 12/07/2008 S/P colonoscopy, 2005. HTN (hypertension) Hyperlipidemia 12/07/2008 Hypertension Low back pain 12/07/2008 Osteoarthritis 12/07/2008 Outpatient Medications as of 10/05/2019 Medication Sig Dispense Refill B Complex Vitamins (B-COMPLEX/B-12) Oral Tab Take by mouth DAILY. hydrocortisone (ANUSOL-HC) [address] 1 Suppository per rectum EVERY TWELVE HOURS. 30 Suppository 1 hydrocortisone (HYTONE) 2.5 % Apply externally Cream 1 Appl by Topical route THREE TIMES DAILY NEEDED (pain). 1 Tube 1 lactulose (CEPHULAC) 10 GM/15ML Oral Solution Take 15 mL by mouth TWO TIMES DAILY NEEDED (constipation). 450 mL 1 metoprolol (LOPRESSOR) 100 MG Oral Tab TAKE [...] (PROBIOTIC ADVANCED PO) Take by mouth DAILY. No current facility-administered medications on file as of 10/05/2019. Allergies Allergen Reactions Aspirin Rectal Bleed Review of Systems: All remaining review of systems was negative. Objective: BP 142/80 (BP Location: Right arm, Patient Position: Sitting) Pulse 59 Temp 97.1 F (36.2 C) (Tympanic) SpO2 99% GENERAL: alert, no distress HEAD: normocephalic, without obvious abnormality THROAT: lips, mucosa, and tongue normal: teeth and gums normal NECK: supple, symmetrical, trachea midline LUNGS: clear to auscultation bilaterally HEART: regular rate and rhythm, S1, S2 normal, no murmur, click, rub or gallop ABDOMEN: soft, non-tender. Bowel sounds normal. No masses, no organomegaly A right ankle exam was performed. Skin: normal Swelling: none Warmth: no warmth Tenderness: none ROM: normal Neurological Exam: normal Vascular Exam: normal A right hand and wrist exam was performed. SKIN: intact SWELLING: mild in paroxymal metacarpal area WARMTH: no warmth ROM: normal TENDERNESS: none NEUROVASCULAR EXAM normal ICD-9-CM ICD-10-CM 1. Syncope, unspecified syncope type Likely vasovagal 780.2 R55 2. Bradycardia Will titrate down Metoprolol 427.89 R00.1 3. Chronic constipation Continue Lactulose and Miralax 564.00 K59.09 4. Injury of right ankle, sequela Improved 908.9 S99.911S 5. Injury of right hand, sequela Improved 908.9 S69.91XS Patient Instructions 1. Reduce Metoprolol to 100 mg once a day 2. Start Norvasc 5 mg once a day 3. Follow up in 1 week for blood pressure check Author: Kimberly Juarez MD documented in this encounter Plan of Treatment Date Type Specialty Care Team Description 10/12/2019 Nurse/Clinical Support Internal Medicine Health Maintenance Due [...] 07/01/2024 07/01/2019, 07/01/2019, 07/31/2017, Additional history exists DTaP/Tdap/Td Vaccines (2 - 03/22/2025 03/22/2015 Tdap) PNEUMOCOCCAL 65+YRS Completed 03/22/2015, 05/03/2011 AAA SCREENING/SURVEILLANCE Completed 08/13/2018, 07/04/2018, 03/14/2017, Additional history exists HIV SCREENING Completed 03/06/2019 INFLUENZA VACCINE Completed 06/01/2019, 06/03/2018, 06/07/2016, Additional history exists HEPATITIS A IMMUNIZATION Aged Out No longer eligible SERIES based on patient's age to complete this topic HPV IMMUNIZATION SERIES Aged Out No longer eligible based on patient's age to complete this topic MENINGOCOCCAL VACCINE IMM Aged Out No longer eligible based on patient's age to complete this topic documented as of this encounter Goals Goal Patient Goal Associated Recent Patient-Stated? Author Type Problems Progress Blood Pressure Blood Pressure HTN 142/80 No Larry, < 140/90 (hypertension) (10/05/2019 Kimberly, 1:57 PM EST) Note: Hypertension Care Plan Based on [...] Educational Resources: National Heart, Lung, & Blood [place] http://nhlbi.nih.gov/hbp/index.html The DASH Diet Eating Plan http://www.nhlbi.nih.gov/health/health-topics/ topics/dash/ Academy of Nutrition & DIetetics http://eatright.org National Smoking Cessation Site http://smokefree.gov Blood Pressure < Blood Pressure 142/80 (10/05/2019 No Kimberly Juarez, 150/90 1:57 PM EST) Note: This is an individualized treatment [...] filedocumented in this encounter Visit Diagnoses Diagnosis Syncope, unspecified syncope type Bradycardia Other specified cardiac dysrhythmias Chronic constipation Unspecified constipation Injury of right ankle, sequela Injury of right hand, sequela documented in this encounter Insurance Payer Benefit Plan / Subscriber ID Effective Dates Phone Address Type Group AETNA MEDICARE AETNA MEDICARE xxxxxxxx 2019-[facility] Aet ADVANTAGE [facility], [place]([phone] ) MEDICAID [facility] xxxxxxxx Effective for Medicaid [place] MEDICAID all dates Guarantor Name Account Type Relation to Date of Phone Billing Address Patient Charlie Personal/Famil 1945 [address] [phone] [place], [place] (Work) [id number] documented as of this encounter Advance Directives Type Date 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 yes Order discussed with: Patient I discussed all options and patient/surrogate requested and agreed to: Full Code
[2019-10-06 11:31] LABS: Calcium 10.1 mg/dL (8.6-10.3); EGFR African American 66.7 (>60); EGFR Non-African American 55.1 (>60); Potassium 3.8 mmol/L (3.5-5.0)
[2019-10-06 11:54] VITALS: BP 134/83
== END 2019-10-06 11:54 | disposition home or self-care (01) ==
LOC: ED 10:02
DX: K59.00 Constipation, unspecified (principal); I10 Essential (primary) hypertension; F17.290 Nicotine dependence, other tobacco product, uncomplicated; Z79.899 Other long term (current) drug therapy; Z88.8 Allergy status to other drugs, medicaments and biological substances
CPT/HCPCS: 36415; 80048; 85025; 93005; 99282

== ENCOUNTER 2019-10-12 23:57 | Emergency (ER) | payer MEDICARE, MEDICAID ==
--- NOTE | 2019-10-13 02:37 | ED ---
Abdominal Pain/Male - HPI Summary HPI Summary: 74 year old male presents with a chief complaint of diarrhea for about a year, worse for the last several days. Patient reports abdominal pain due to build up of flatulence. Pain was a 10/10 earlier today but is now a 7/10. Patient reports feeling better after drinking coconut water. He has not been eating solid foods. Patient denies vomiting. - History of Current Complaint Chief Complaint: EDAbdPain Stated Complaint: NOT FEELING WELL PER/ DIFFICULTY BREATHING PER PT Time Seen by Provider: 10/13/19 02:20 Hx Obtained From: Patient Onset/Duration: Gradual Onset, Lasting Weeks, Still Present, Worse Since - 2 days ago Timing: Lasting Weeks Severity Initially: Moderate Severity Currently: Severe Pain Intensity: 10 Pain Scale Used: 0-10 Numeric Location: Diffuse Radiates: No Character: Sharp Associated Signs And Symptoms: Positive: Diarrhea, Other - flatulence. Negative : Vomiting - Allergies/Home Medications Allergies/Adverse Reactions: Allergies Allergy/AdvReac Type Severity Reaction Status Date / Time aspirin Allergy Bleeding Verified 10/13/19 00:03 PMH/Surg Hx/FS Hx/Imm Hx Endocrine/Hematology History: Denies: Hx Diabetes Cardiovascular History: Reports: Hx Hypertension - ON DAILY MEDS Denies: Hx Hypercholesterolemia, Hx Pacemaker/ICD Respiratory History: Denies: Hx Asthma GI History: Reports: Other GI Disorders - Hemorrhoids History: Denies: Hx Renal Disease Musculoskeletal History: Reports: Hx Arthritis - HANDS, KNEES Sensory History: Reports: Hx Contacts or Glasses - WILL NOT BE WEARING DAY OF SURGERY Denies: Hx Legally Blind, Hx Deafness, Hx Hearing Aid Opthamlomology History: Reports: Hx Contacts or Glasses - WILL NOT BE WEARING DAY OF SURGERY Denies: Hx Legally Blind Neurological History: Denies: Hx Dementia Psychiatric History: Denies: Hx Panic Disorder, Hx Suicide Attempt, Hx of Violent Episodes Against Others - Surgical History Surgery Procedure, Year, and Place: pt eyelid cut with ontivreos 20 years ago so had surgery to stich cut together. Hemorrhoidectomy Hx Anesthesia Reactions: No Infectious Disease History: No Infectious Disease History: Denies: Traveled Outside the [place] in Last 30 Days - Family History Known Family History: Negative: Cardiac Disease, Hypertension, Diabetes, Respiratory Disease, Blood Disorder - Social History Alcohol Use: None Hx Substance Use: Yes Substance Use Type: Reports: Marijuana Substance Use Comment - Amount & Last Used: once in a while Hx Tobacco Use: Yes - previous cig smoking, now cigars Smoking Status (MU): Light Every Day Tobacco Smoker Type: Cigars Amount Used/How Often: 2-3 CIGARS/DAY 35 YRS Have You Smoked in the Last Year: Yes - Additional Comments History Additional Comments: PMHx: Hypertension Review of Systems - ROS Summary Review of Systems Summary: Home Medications Medication Instructions Recorded Confirmed Type Polyethylene Glycol 3350 [Miralax] 17 gm PO DAILY PRN 07/15/19 09/20/19 History lisinopriL [Lisinopril] 40 mg PO DAILY 07/15/19 09/20/19 History L.acidoph,Paracasei, B.lactis 1 each PO DAILY 08/05/19 09/20/19 History [Probiotic] Multivitamins/Minerals TAB* 1 tab PO DAILY 08/05/19 09/20/19 History [Theragran/minerals TAB*] Hydrocortisone 2.5% CREAM(NF) 1 applic TOPICAL TID PRN 08/25/19 09/20/19 History Lactulose* 15 ml PO BID PRN 08/25/19 10/01/19 History Nitroglycerin 0.4% Rectal Oint 1 applic NV Q12H PRN 08/25/19 09/20/19 History Vitamin B Complex TAB* [B 1 tab PO DAILY 08/25/19 09/20/19 History Complex-50*] Magnesium CITRATE* [Citrate of 300 ml PO ONCE 09/16/19 10/01/19 History Magnesia*] Calcium Polycarbophil TAB* 625 mg PO DAILY #30 tab 09/24/19 Rx [Fibercon TAB*] amLODIPine TAB* [Norvasc 5 mg TAB*] 5 mg PO DAILY #30 tab 09/24/19 Rx Diclofenac 1% GEL (NF) [Voltaren 1 applic TOPICAL BID PRN #1 tube 10/01/19 Rx 1% GEL (NF)] Negative: Fever Positive: Abdominal Pain, Diarrhea, Nausea. Negative: Vomiting Physical Exam - Summary Physical Exam Summary: General: Well-developed, thin male. Mild discomfort. HEENT: Normocephalic, Atraumatic. Eyes: Conjuctiva normal, PERRL. Ears: TMs within normal limits. Nares: (-) discharge, (-) erythema. Oropharynx: Clear, mucous membranes moist, (-) exudates. Neck: Soft, FROM, (-) lymphadenopathy, (-) thyromegaly, (-) JVD. Cardiovascular: Normal sinus rhythm, (-) murmur. Lungs: Clear to auscultation bilaterally (-) wheezes, (-) rales, (-) rhonchi. Abdomen: Soft, mild lower abdominal tenderness, non-distended, (-) organomegaly , normal bowel sounds. Back: (-) CVA tenderness Extremities: No edema. Skin: Warm, dry, (-) rash. Neuro: Alert and oriented x3, no focal deficits. Psychiatric: Mood normal, affect normal. Triage Information Reviewed: Yes Vital Signs On Initial Exam: Initial Vitals Temp Pulse Resp BP Pulse Ox 98.7 F 94 18 162/97 99 10/12/19 23:59 10/12/19 23:59 10/12/19 23:59 10/12/19 23:59 10/12/19 23:59 Vital Signs Reviewed: Yes Procedures - Sedation Patient Received Moderate/Deep Sedation with Procedure: No Diagnostics - Vital Signs Vital Signs Temp Pulse Resp BP Pulse Ox 10/12/19 23:59 98.7 F 94 18 162/97 99 - Laboratory Result Diagrams: 10/13/19 02:50 10/13/19 02:50 Lab Statement: Any lab studies that have been ordered have been reviewed, and results considered in the medical decision making process. - CT APCT CT Interpretation Completed By: Radiologist Summary of CT Findings: IMPRESSION: 1. Right renal cysts. 2. Pancreatic cyst. 3. Mildly prominent adrenal glands bilaterally. 4. 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 5. Degenerative disc disease at L4 -L5, as described above. 6. Soft tissue density in the lingula suggesting subsegmental atelectasis and/or fibrosis. An ED physician has reviewed this report. Abdominal Pain Male Course/Dx - Diagnoses Provider Diagnoses: Lower abdominal pain, Diarrhea, Tobacco use Discharge ED - Sign-Out/Discharge Documenting (check all that apply): Patient Departure - Discharge home - Discharge Plan Condition: Stable Disposition: HOME Patient Education Materials: Acute Diarrhea (ED), Acute Abdominal Pain (ED), How to Stop Smoking (ED) Referrals: Kimberly Juarez MD [Primary Care Provider] - Tyrese Cuadra DO [Doctor of Osteopathy] - Additional Instructions: Follow up with your PCP and BRIDGETT Shankar, in 2-3 days. Return to the Emergency Department if your symptoms change or worsen. - Attestation Statements Document Initiated by Scribe: Yes Documenting Scribe: Christian Tapia Provider For Whom Scribe is Documenting (Include Credential): Martina Morrison MD Scribe Attestation: IChristian, scribed for Martina Morrison MD on 10/13/19 at 0620. Status of Scribe Document: Ready
[2019-10-13 02:57] LABS: ABS Eosinophils 0.1 10^3/ul (0-0.6); ABS Lymphocytes 1.4 10^3/ul (1.0-4.8); ABS Monocytes 0.6 10^3/ul (0-0.8); ABS Neutrophils 1.1 10^3/ul (1.5-7.7); Eosinophil % 2.6 %; Hematocrit 40 % (42-52); Hemoglobin 14.2 g/dL (14.0-18.0); Lymphocyte % 44.2 %; Mean Corpuscular HGB Conc 35 g/dL (31-36); Mean Corpuscular Hemoglobin 36 pg (27-31); Mean Corpuscular Volume 101 fL (80-94); Platelet Count 256 10^3/uL (150-450); Red Cell Distribution Width 15 % (10-15); White Blood Count 3.3 10^3/uL (3.5-10.8)
[2019-10-13 03:13] LABS: Albumin 4.8 g/dL (3.2-5.2); Albumin/Globulin Ratio 1.9 (1-3); BUN/Creatinine Ratio 4.5 (8-20); C Reactive Protein 1.72 mg/L (<8.01); Calcium 9.6 mg/dL (8.6-10.3); EGFR African American 79.4 (>60); EGFR Non-African American 65.6 (>60); Globulin 2.5 g/dL (2-4); Potassium 3.6 mmol/L (3.5-5.0); Total Bilirubin 0.5 mg/dL (0.2-1.0); Total Protein 7.3 g/dL (6.4-8.9)
[2019-10-13 04:00] LABS: Urine Appearance Clear; Urine Bilirubin Negative (Negative); Urine Blood 1+ (Negative); Urine Color Straw; Urine Glucose Negative (Negative); Urine Ketones Negative (Negative); Urine Nitrite Negative (Negative); Urine Protein Negative (Negative); Urine Specific Gravity 1.002 (1.010-1.030); Urine Urobilinogen Negative (Negative)
[2019-10-13] MEDS ORDERED: Iohexol 300* (CONTRAST) 10 ML SDV IV ONE (04:15)
[2019-10-13 04:25] LABS: Urine Bacteria 1+ (Absent); Urine Red Blood Cell Trace(0-2/hpf) (Absent); Urine White Blood Cell Absent (Absent)
[2019-10-13 07:08] VITALS: BP 146/87
== END 2019-10-13 07:06 | disposition home or self-care (01) ==
LOC: ED 23:57
DX: R10.30 Lower abdominal pain, unspecified (principal); R19.7 Diarrhea, unspecified; I10 Essential (primary) hypertension; F17.210 Nicotine dependence, cigarettes, uncomplicated
CPT/HCPCS: 36415; 74177; 80053; 81003; 81015; 83605; 83690; 85025; 86140; 87086; 99283; Q9967

== ENCOUNTER 2019-10-14 10:09 | Emergency (ER) | payer MEDICARE, MEDICAID ==
[2019-10-14 11:41] LABS: ABS Lymphocytes 0.8 10^3/ul (1.0-4.8); ABS Monocytes 0.6 10^3/ul (0-0.8); ABS Neutrophils 2.5 10^3/ul (1.5-7.7); Eosinophil % 0.4 %; Hematocrit 42 % (42-52); Hemoglobin 14.9 g/dL (14.0-18.0); Lymphocyte % 20.5 %; Mean Corpuscular HGB Conc 36 g/dL (31-36); Mean Corpuscular Hemoglobin 36 pg (27-31); Mean Corpuscular Volume 102 fL (80-94); Mean Platelet Volume 7.9 fL (7.4-10.4); Platelet Count 268 10^3/uL (150-450); Red Blood Count 4.11 10^6 /uL (4.18-5.48); Red Cell Distribution Width 15 % (10-15); White Blood Count 3.9 10^3/uL (3.5-10.8)
[2019-10-14 11:57] LABS: Albumin 5.1 g/dL (3.2-5.2); Albumin/Globulin Ratio 1.9 (1-3); BUN/Creatinine Ratio 4.8 (8-20); C Reactive Protein 1.17 mg/L (<8.01); Calcium 10.1 mg/dL (8.6-10.3); EGFR African American 69.1 (>60); EGFR Non-African American 57.1 (>60); Globulin 2.7 g/dL (2-4); Potassium 3.6 mmol/L (3.5-5.0); Total Bilirubin 0.6 mg/dL (0.2-1.0); Total Protein 7.8 g/dL (6.4-8.9)
--- NOTE | 2019-10-14 12:03 | ED ---
Abdominal Pain/Male - HPI Summary HPI Summary: Patient is a 74 y/o M presenting to the ED for a chief complaint of abdominal pain. Patient is present with his retail analytics manager. On triage, he rates his abdominal pain as 10/10 in severity. Patient complains of constipation. His last bowel movement was on the night of 10/13/19 and he reports daily bowel movements that he describes as "small pieces." He notes incorporating chicken broth in his diet to help his constipation without relief. He denies changes in appetite. Any aggravating or alleviating factors are denied. Patient was seen at [facility] on 10/13/19 for the same symptoms. Previously, patient was seen by a GI who recommended the patient have physical therapy at [facility]. He is seen at [facility] by his PCP. He has an appointment with a GI specialist on at 13:00. Per his retail analytics manager, patient follows up with his appointments and is compliant with his medications. His retail analytics manager is unsure if patient has a history of bowel obstruction. - History of Current Complaint Chief Complaint: EDAbdPain Stated Complaint: ABDOMINAL PAIN PER PT Time Seen by Provider: 10/14/19 11:45 Hx Obtained From: Patient Onset/Duration: Sudden Onset, Still Present Timing: Constant Severity Initially: Severe Severity Currently: Severe Pain Intensity: 10 Pain Scale Used: 0-10 Numeric Location: Diffuse Radiates: No Aggravating Factor(s): Nothing Alleviating Factor(s): Nothing Associated Signs And Symptoms: Positive: Constipation. Negative: Other - Negative changes in appetite - Allergies/Home Medications Allergies/Adverse Reactions: Allergies Allergy/AdvReac Type Severity Reaction Status Date / Time aspirin Allergy Bleeding Verified 10/13/19 00:03 PMH/Surg Hx/FS Hx/Imm Hx Previously Healthy: Yes Endocrine/Hematology History: Denies: Hx Diabetes Cardiovascular History: Reports: Hx Hypertension - ON DAILY MEDS Denies: Hx Hypercholesterolemia, Hx Pacemaker/ICD Respiratory History: Denies: Hx Asthma GI History: Reports: Other GI Disorders - Hemorrhoids History: Denies: Hx Renal Disease Musculoskeletal History: Reports: Hx Arthritis - HANDS, KNEES Sensory History: Reports: Hx Contacts or Glasses - WILL NOT BE WEARING DAY OF SURGERY Denies: Hx Legally Blind, Hx Deafness, Hx Hearing Aid Opthamlomology History: Reports: Hx Contacts or Glasses - WILL NOT BE WEARING DAY OF SURGERY Denies: Hx Legally Blind EENT History: Denies: Hx Deafness Neurological History: Denies: Hx Dementia Psychiatric History: Denies: Hx Panic Disorder, Hx Suicide Attempt, Hx of Violent Episodes Against Others - Surgical History Surgical History: Yes Surgery Procedure, Year, and Place: pt eyelid cut with ontiveros 20 years ago so had surgery to stich cut together. Hemorrhoidectomy Hx Anesthesia Reactions: No Infectious Disease History: No Infectious Disease History: Denies: Traveled Outside the [place] in Last 30 Days - Family History Known Family History: Negative: Cardiac Disease, Hypertension, Diabetes, Respiratory Disease, Blood Disorder - Social History Occupation: Unemployed Alcohol Use: None Hx Substance Use: Yes Substance Use Type: Reports: Marijuana Substance Use Comment - Amount & Last Used: once in a while Hx Tobacco Use: Yes - previous cig smoking, now cigars Smoking Status (MU): Light Every Day Tobacco Smoker Type: Cigars Amount Used/How Often: 2-3 CIGARS/DAY 35 YRS Have You Smoked in the Last Year: Yes Review of Systems Negative: Other - Negative changes in appetite Positive: Abdominal Pain, Other - Positive constipation All Other Systems Reviewed And Are Negative: Yes Physical Exam - Summary Physical Exam Summary: Constitutional: Well-developed, Well-nourished, Alert. (-) Distressed Skin: Warm, Dry HENT: Normocephalic; Atraumatic Eyes: Conjunctiva normal Neck: Musculoskeletal ROM normal neck. (-) JVD, (-) Stridor, (-) Tracheal deviation Cardio: Rhythm regular, rate normal, Heart sounds normal; Intact distal pulses; The pedal pulses are 2+ and symmetric. Radial pulses are 2+ and symmetric. (-) Murmur Pulmonary/Chest wall: Effort normal. (-) Respiratory distress, (-) Wheezes, (-) Rales Abd: Soft, (-) tenderness, (-) Distension, (-) Guarding, (-) Rebound Musculoskeletal: (-) Edema Lymph: (-) Cervical adenopathy Neuro: Alert, Oriented x3 Psych: Mood and affect Normal Rectal: no noted hemorrhoids, good rectal tone, paitient not impacted, unable to remove stool with YUMIKO Triage Information Reviewed: Yes Vital Signs On Initial Exam: Initial Vitals Temp Pulse Resp BP Pulse Ox 97.4 F 98 20 136/89 99 10/14/19 10:15 10/14/19 10:15 10/14/19 10:15 10/14/19 10:15 10/14/19 10:15 Vital Signs Reviewed: Yes Procedures - Sedation Patient Received Moderate/Deep Sedation with Procedure: No Diagnostics - Vital Signs Vital Signs Temp Pulse Resp BP Pulse Ox 10/14/19 10:15 97.4 F 98 20 136/89 99 - Laboratory Lab Results: Lab Results 10/14/19 Range/Units 11:28 WBC 3.9 (3.5-10.8) 10^3/uL RBC 4.11 L (4.18-5.48) 10^6 /uL Hgb 14.9 (14.0-18.0) g/dL Hct 42 (42-52) % MCV 102 H (80-94) fL MCH 36 H (27-31) pg MCHC 36 (31-36) g/dL RDW 15 (10-15) % Plt Count 268 (150-450) 10^3/uL MPV 7.9 (7.4-10.4) fL Neut % (Auto) 63.7 % Lymph % (Auto) 20.5 % [place] % (Auto) 14.6 % Eos % (Auto) 0.4 % Baso % (Auto) 0.8 % Absolute Neuts (auto) 2.5 (1.5-7.7) 10^3/ul Absolute Lymphs (auto) 0.8 L (1.0-4.8) 10^3/ul Absolute Monos (auto) 0.6 (0-0.8) 10^3/ul Absolute Eos (auto) 0.0 (0-0.6) 10^3/ul Absolute Basos (auto) 0.0 (0-0.2) 10^3/ul Absolute Nucleated RBC 0.0 10^3/ul Nucleated RBC % 0.0 Result Diagrams: 10/14/19 11:28 10/14/19 11:28 Lab Statement: Any lab studies that have been ordered have been reviewed, and results considered in the medical decision making process. Abdominal Pain Male Course/Dx - Course Course Of Treatment: Patient is a 74 y/o M presenting to the ED for a chief complaint of abdominal pain. Patient is present with his retail analytics manager. On triage, he rates his abdominal pain as 10/10 in severity. Patient complains of constipation. His last bowel movement was on the night of 10/13/19 and he reports daily bowel movements that he describes as "small pieces." He notes incorporating chicken broth in his diet to help his constipation without relief. He denies changes in appetite. Any aggravating or alleviating factors are denied. Patient was seen at [facility] on 10/13/19 for the same symptoms. Previously, patient was seen by a GI who recommended the patient have physical therapy at [facility]. He is seen at [facility] by his PCP. He has an appointment with a GI specialist on 10/18/19 at 13:00. Per his retail analytics manager, patient follows up with his appointments and is compliant with his medications. His retail analytics manager is unsure if patient has a history of bowel obstruction. On exam , soft, non-tender, non-distended abdomen. On rectal exam, no noted hemorrhoids , good rectal tone, patient is not impacted, unable to remove stool with YUMIKO. In the ED course, patient was given Toradol 60 mg IM and lidocaine 1 applic TOPICAL. Laboratory abnormal findings: RBC 4.11, MCV 102, MCH 36, abolsute lymphs 0.8, creatinine 1.24, BUN/Creatinine ratio 4.8, glucose 119. Patient will be discharged with a diagnosis of chronic rectal pain. Follow up with GI. - Diagnoses Provider Diagnoses: Chronic rectal pain Discharge ED - Sign-Out/Discharge Documenting (check all that apply): Patient Departure - Discharge - Discharge Plan Condition: Stable Disposition: HOME Patient Education Materials: Rectal Pain (ED) Referrals: Kimberly Juarez MD [Primary Care Provider] - Additional Instructions: RETURN TO THE EMERGENCY DEPARTMENT FOR CHANGING OR WORSENING SYMPTOMS. Follow up with a GI during your scheduled appointment on Friday. - Billing Disposition and Condition Condition: STABLE Disposition: Home - Attestation Statements Document Initiated by Tim: Yes Documenting Scribe: Irene Morel Provider For Whom Tim is Documenting (Include Credential): DO Tim Springer Attestation: Irene Johnson scribed for Raj Macias DO on 10/14/19 at 1655. Scribe Documentation Reviewed: Yes Provider Attestation: The documentation as recorded by the scribe, Irene Amquy accurately reflects the service I personally performed and the decisions made by me, Raj Macias, DO Status of Scribe Document: Viewed
[2019-10-14] MEDS ORDERED: Lidocaine 2% JELLY* 10 ML JELLY TOPICAL ONE (13:29)
[2019-10-14] MEDS ORDERED: Ketorolac *IM* INJ* 60 MG/2 ML VIAL IM ONE (13:29)
[2019-10-14] MEDS ORDERED: Lidocaine 2% JELLY* 6 ML JELLY TOPICAL ONE (14:30)
[2019-10-14 16:11] VITALS: BP 161/95
== END 2019-10-14 16:06 | disposition home or self-care (01) ==
LOC: ED 10:09
DX: K62.89 Other specified diseases of anus and rectum (principal); K59.00 Constipation, unspecified; I10 Essential (primary) hypertension; F17.210 Nicotine dependence, cigarettes, uncomplicated
CPT/HCPCS: 36415; 80053; 83605; 83690; 85025; 86140; 96372; 99282; A9270-GY; J1885

== ENCOUNTER 2019-10-17 09:11 | Emergency (ER) | payer MEDICARE, MEDICAID ==
[2019-10-17 09:45] LABS: ABS Eosinophils 0.1 10^3/ul (0-0.6); ABS Monocytes 0.6 10^3/ul (0-0.8); ABS Neutrophils 1.8 10^3/ul (1.5-7.7); Eosinophil % 3.6 %; Hematocrit 37 % (42-52); Hemoglobin 12.8 g/dL (14.0-18.0); Mean Corpuscular HGB Conc 34 g/dL (31-36); Mean Corpuscular Hemoglobin 35 pg (27-31); Mean Corpuscular Volume 102 fL (80-94); Mean Platelet Volume 7.6 fL (7.4-10.4); Nucleated Red Blood Cells % 0.1; Platelet Count 239 10^3/uL (150-450); Red Blood Count 3.65 10^6 /uL (4.18-5.48); Red Cell Distribution Width 15 % (10-15); White Blood Count 3.6 10^3/uL (3.5-10.8)
[2019-10-17 10:34] LABS: Albumin 4.2 g/dL (3.2-5.2); Albumin/Globulin Ratio 1.8 (1-3); BUN/Creatinine Ratio 8.3 (8-20); C Reactive Protein 15.34 mg/L (<8.01); Calcium 9.2 mg/dL (8.6-10.3); EGFR African American 71.1 (>60); EGFR Non-African American 58.8 (>60); Globulin 2.4 g/dL (2-4); Potassium 4.4 mmol/L (3.5-5.0); Total Bilirubin 0.4 mg/dL (0.2-1.0); Total Protein 6.6 g/dL (6.4-8.9)
--- NOTE | 2019-10-17 11:31 | ED ---
GI/ HPI - HPI Summary HPI Summary: 74 year old male presents with rectal pain today. He has a history of chronic rectal pain. He has a history of rectal pain. He has follow up with GI on Friday. He states he had a small bowel movement today. States he has pressure in his rectum. He denies any urinary symptoms. No nausea or vomiting. No history of bowel obstruction. No previous surgeries. Is currently on lactulose and MiraLAX. Denies any urinary symptoms. no fevers. - History of Current Complaint Chief Complaint: EDConstipation Time Seen by Provider: 10/17/19 09:24 Stated Complaint: CONSTIPATION PER EMS Pain Intensity: 10 - Allergy/Home Medications Allergies/Adverse Reactions: Allergies Allergy/AdvReac Type Severity Reaction Status Date / Time aspirin Allergy Bleeding Verified 10/17/19 09:16 PMH/Surg Hx/FS Hx/Imm Hx Endocrine/Hematology History: Denies: Hx Diabetes Cardiovascular History: Reports: Hx Hypertension - ON DAILY MEDS Denies: Hx Hypercholesterolemia, Hx Pacemaker/ICD Respiratory History: Denies: Hx Asthma GI History: Reports: Other GI Disorders - Hemorrhoids History: Denies: Hx Renal Disease Musculoskeletal History: Reports: Hx Arthritis - HANDS, KNEES Sensory History: Reports: Hx Contacts or Glasses - WILL NOT BE WEARING DAY OF SURGERY Denies: Hx Legally Blind, Hx Deafness, Hx Hearing Aid Opthamlomology History: Reports: Hx Contacts or Glasses - WILL NOT BE WEARING DAY OF SURGERY Denies: Hx Legally Blind Neurological History: Denies: Hx Dementia Psychiatric History: Denies: Hx Panic Disorder, Hx Suicide Attempt, Hx of Violent Episodes Against Others - Surgical History Surgery Procedure, Year, and Place: pt eyelid cut with ontiveros 20 years ago so had surgery to stich cut together. Hemorrhoidectomy Hx Anesthesia Reactions: No Infectious Disease History: No Infectious Disease History: Denies: Traveled Outside the [place] in Last 30 Days - Family History Known Family History: Negative: Cardiac Disease, Hypertension, Diabetes, Respiratory Disease, Blood Disorder - Social History Alcohol Use: None Hx Substance Use: Yes Substance Use Type: Reports: Marijuana Substance Use Comment - Amount & Last Used: once in a while Hx Tobacco Use: Yes - previous cig smoking, now cigars Smoking Status (MU): Current Some Day Smoker Type: Cigars Amount Used/How Often: 2-3 CIGARS/DAY 35 YRS Have You Smoked in the Last Year: Yes Review of Systems Negative: Fever Negative: Chest Pain Negative: Shortness Of Breath Positive: Other - rectal pain. Negative: Vomiting, Nausea All Other Systems Reviewed And Are Negative: Yes Physical Exam Triage Information Reviewed: Yes Vital Signs On Initial Exam: Initial Vitals Temp Pulse Resp BP Pulse Ox 97.7 F 68 16 154/87 98 10/17/19 09:12 10/17/19 09:12 10/17/19 09:12 10/17/19 09:12 10/17/19 09:12 Vital Signs Reviewed: Yes Appearance: Positive: Well-Appearing Skin: Positive: Warm, Dry Head/Face: Positive: Normal Head/Face Inspection Eyes: Positive: Normal, Conjunctiva Clear ENT: Positive: Pharynx normal Respiratory/Lung Sounds: Positive: Clear to Auscultation, Breath Sounds Present Cardiovascular: Positive: Normal, RRR Abdomen Description: Positive: Nontender, Soft, Other: - hemorrhoids present, normal rectal tone, no stool on rectal exam Bowel Sounds: Positive: Present Musculoskeletal: Positive: Normal Neurological: Positive: Normal Psychiatric: Positive: Normal Procedures - Sedation Patient Received Moderate/Deep Sedation with Procedure: No Diagnostics - Vital Signs Vital Signs Temp Pulse Resp BP Pulse Ox 10/17/19 10:17 53 146/78 98 10/17/19 10:02 53 141/78 98 10/17/19 10:00 59 99 10/17/19 09:47 57 157/108 99 10/17/19 09:32 61 161/83 100 10/17/19 09:17 60 154/87 98 10/17/19 09:16 66 10/17/19 09:12 97.7 F 68 16 154/87 98 - Laboratory Lab Results: Lab Results 10/17/19 10/17/19 Range/Units 09:39 09:39 WBC 3.6 (3.5-10.8) 10^3/uL RBC 3.65 L (4.18-5.48) 10^6 /uL Hgb 12.8 L (14.0-18.0) g/dL Hct 37 L (42-52) % MCV 102 H (80-94) fL MCH 35 H (27-31) pg MCHC 34 (31-36) g/dL RDW 15 (10-15) % Plt Count 239 (150-450) 10^3/uL MPV 7.6 (7.4-10.4) fL Neut % (Auto) 50.4 % Lymph % (Auto) 28.0 % [place] % (Auto) 16.6 % Eos % (Auto) 3.6 % Baso % (Auto) 1.4 % Absolute Neuts (auto) 1.8 (1.5-7.7) 10^3/ul Absolute Lymphs (auto) 1.0 (1.0-4.8) 10^3/ul Absolute Monos (auto) 0.6 (0-0.8) 10^3/ul Absolute Eos (auto) 0.1 (0-0.6) 10^3/ul Absolute Basos (auto) 0.0 (0-0.2) 10^3/ul Absolute Nucleated RBC 0.0 10^3/ul Nucleated RBC % 0.1 Sodium 140 (135-145) mmol/L Potassium 4.4 (3.5-5.0) mmol/L Chloride 108 (101-111) mmol/L Carbon Dioxide 29 (22-32) mmol/L Anion Gap 3 (2-11) mmol/L BUN 10 (6-24) mg/dL Creatinine 1.21 H (0.67-1.17) mg/dL Est GFR ( Amer) 71.1 (>60) Est GFR (Non-Af Amer) 58.8 (>60) BUN/Creatinine Ratio 8.3 (8-20) Glucose 100 (70-100) mg/dL Calcium 9.2 (8.6-10.3) mg/dL Total Bilirubin 0.40 (0.2-1.0) mg/dL AST 12 L (13-39) U/L ALT 11 (7-52) U/L Alkaline Phosphatase 53 (34-104) U/L C-Reactive Protein 15.34 H (<8.01) mg/L Total Protein 6.6 (6.4-8.9) g/dL Albumin 4.2 (3.2-5.2) g/dL Globulin 2.4 (2-4) g/dL Albumin/Globulin Ratio 1.8 (1-3) Result Diagrams: 10/17/19 09:39 10/17/19 09:39 Lab Statement: Any lab studies that have been ordered have been reviewed, and results considered in the medical decision making process. - Radiology abd Radiology Interpretation Completed By: Radiologist Summary of Radiographic Findings: IMPRESSION: Nonobstructive bowel gas pattern with average stool volume. GIGU Course/Dx - Course Course Of Treatment: 74 year old male presents with rectal pain today. He has a history of chronic rectal pain. He has a history of rectal pain. He has follow up with GI on Friday. He states he had a small bowel movement today. States he has pressure in his rectum. He denies any urinary symptoms. No nausea or vomiting. No history of bowel obstruction. No previous surgeries. Is currently on lactulose and MiraLAX. Denies any urinary symptoms. no fevers. On exam nontender abdomen. Hemorrhoids present on rectal exam. Normal rectal tone. No stool felt on rectal exam. X-ray shows average amount of stool throughout. No obstruction. As this is a recurring issue will not get me imaging this time. told follow with GI. gave dibucaine as needed for pain. Patient understands and agrees plan. - Diagnoses Differential Diagnoses - Male: Constipation, Bowel Obstruction, Hemorrhoids Provider Diagnoses: Rectal pain Discharge ED - Sign-Out/Discharge Documenting (check all that apply): Patient Departure - Discharge Plan Condition: Good Disposition: HOME Referrals: Kimberly Juarez MD [Primary Care Provider] - Additional Instructions: follow up with GI as scheduled can apply dibucaine sparingly up to four times a day increase fiber intake Return to ED if develop any new or worsening symptoms - Billing Disposition and Condition Condition: GOOD Disposition: Home
[2019-10-17 12:25] LABS: Urine Appearance Cloudy; Urine Bilirubin Negative (Negative); Urine Blood 1+ (Negative); Urine Color Yellow; Urine Glucose Negative (Negative); Urine Ketones Negative (Negative); Urine Nitrite Negative (Negative); Urine Protein Negative (Negative); Urine Specific Gravity 1.011 (1.010-1.030); Urine Urobilinogen Negative (Negative)
[2019-10-17 12:28] LABS: Urine Bacteria Absent (Absent); Urine Red Blood Cell 3+(>10/hpf) (Absent); Urine Squamous Epithelial Cell Present (Absent); Urine White Blood Cell Trace(0-5/hpf) (Absent)
[2019-10-17 12:35] VITALS: BP 139/91
[2019-10-17] MEDS ORDERED: Dibucaine 1% 28.35 GM TUBE PR SCH (13:00)
== END 2019-10-17 12:33 | disposition home or self-care (01) ==
LOC: ED 09:11
DX: K62.89 Other specified diseases of anus and rectum (principal); K64.9 Unspecified hemorrhoids; I10 Essential (primary) hypertension; Z88.6 Allergy status to analgesic agent; Z72.0 Tobacco use
CPT/HCPCS: 36415; 74018; 80053; 81003; 81015; 82272; 85025; 86140; 87086; 99283

== ENCOUNTER 2019-10-19 15:32 | Emergency (ER) | payer MEDICARE, MEDICAID ==
--- OUTSIDE RECORDS SUMMARY | 2019-10-19 16:21 | XMS REPORT | Summary of Care ---
:1945 Author Organization [facility] Address [address] [facility] [place] [address] Care Team Providers Name Role Phone Kimberly Juarez Primary Care Provider Reason for Visit Reason Comments Follow-up Follow-up on rectal discomfort. Encounter Details Date Type Department Care Team Description 10/18/2019 Office Visit Marizol Betancourt Gastroenterology/Campbell Bundy NP (Primary Dx) tology 1 [facility] [address] [facility] [place] [address] [place] [address] [phone] Allergies Active Allergy Reactions Severity Noted Date Comments Aspirin 12/07/2008 Rectal Bleed documented as of this encounter (statuses as of 10/18/2019) Medications Medication Sig Dispensed Refills Start Date End Date Status MULTIVITAMINS PO Take by mouth. 0 Active B Complex Vitamins Take by mouth 0 [...] NEEDED (pain). metoprolol TAKE 1 TABLET BY 180 Tab 1 08/02/2019 Active (LOPRESSOR) 100 MG MOUTH TWICE Oral Tab DAILY Additional information Patient taking differently: DAILY, Reported on 10/18/2019 1:34 PM lactulose Take 15 mL by mouth 450 mL 1 08/18/2019 Active (CEPHULAC) 10 TWO TIMES DAILY GM/15ML Oral NEEDED Solution (constipation). lisinopril Take 1 Tab by mouth 30 Tab 3 10/05/2019 Active (PRINIVIL, DAILY. ZESTRIL) 40 MG Oral Tab amLodipine Take 5 mg by mouth 0 Active (NORVASC) 5 MG DAILY. Oral Tab dibucaine by Topical route 0 Active (NUPERCAINAL) 1 % TWICE DAILY. Rectal Ointment dibucaine Apply 4 times daily 1 Tube 5 10/18/2019 Active (NUPERCAINAL) 1 % for rectal pain Apply externally Ointment polyethylene Take 17 g by mouth 3 Bottle 1 06/17/2018 glycol (MIRALAX) DAILY AT 1400. 2019 (Alternative Oral Powder Therapy) documented as of this encounter (statuses as of 10/18/2019) Active Problems Problem Noted Date Hyperplastic colonic polyp 10/06/2018 Abdominal mass 03/14/2017 Benign hypertension 03/14/2017 Lower GI bleed 03/14/2017 Right knee pain 08/14/2016 Illiteracy 06/06/2014 B12 deficiency 07/08/2012 Hyperlipidemia 12/07/2008 Osteoarthritis 12/07/2008 Diverticulosis 12/07/2008 Overview: S/P colonoscopy, 2005. Low back pain 12/07/2008 HTN (hypertension) AR (aortic regurgitation) Overview: mild to moderate documented as of this encounter (statuses as of 10/18/2019) Immunizations Name Administration Dates Next Due Influenza (IM) Preservative Free 06/07/2016, 07/01/2013, 08/31/2012, 06/24/2011, 07/26/2009 Influenza Vaccine High Dose 06/01/2019, 06/03/2018, 09/08/2015, 07/06/2014 PNEUMOCOCCAL POLYSACCHARIDE VACCINE 05/03/2011 Pneumococcal Conjugate(13 Valent) 03/22/2015 TDAP Vaccine 03/22/2015 ZOSTER (ZOSTAVAX) VACCINE 04/30/2017 documented as of this encounter Social History Tobacco Use Types Packs/Day Years Used Date Current Every Day Smoker Cigarettes, Cigars 1 31 Smokeless Tobacco: [...] Sign Reading Time Taken Comments Blood Pressure 154/84 10/18/2019 1:28 PM EST Pulse 72 10/18/2019 1:28 PM EST Temperature 37.3 10/18/2019 1:28 PM EST C (99.2 F) Respiratory Rate - - Oxygen Saturation - - Inhaled Oxygen Concentration - - Weight 57.2 kg (126 lb) 10/18/2019 1:28 PM EST Height 167.6 cm (5' 6") 10/18/2019 1:28 PM EST Body Mass Index 20.34 10/18/2019 1:28 PM EST documented in this encounter Patient Instructions Patient InstructionsColumba Tirado NP - 10/18/2019 1:00 PM ESTPrescription for Dibucaine sent to the pharmacy Stop the Miralax, and Magnesium citrate, Stop the fiber supplement. All of these cause gas. May use the Lactulose 1 tablespoon once to twice daily Keep the appointment with the [facility] department Follow up in 2 weeks If you have not already been screened for Hepatitis C we would be happy to do that for you today. Currently we recommend screening for hepatitis C virus (HCV ) infection in persons at high risk for infection, and to adults born between 1945 and 1965. Thank you for choosing the [facility] for your needs today! -Columba Tirado N.P. , Please call if you need to cancel or change your appt. time. Thank you for choosing [facility] for your health care needs, and for consulting with [facility] today. You may receive a survey [...] encounter Progress Notes Columba Tirado NP - 10/18/2019 1:00 PM EST PATIENT: Adrián Kumar : 1945 DATE OF SERVICE: 10/18/2019 REFERRING PRACTITIONER: Self-Referred PRIMARY CARE PROVIDER: Kimberly Juarez CHIEF COMPLAINT: Chief Complaint Patient presents with Follow-up Follow-up on rectal discomfort. Subjective HISTORY OF PRESENT ILLNESS: Adrián Kumar is a 74-y.o. male who presents for follow-up of intermittent rectal pain. Previous visits for this problem: multiple, this is a diagnosis of longstanding. Last seen 3 months ago by me. 06/2019 colonoscopy was unremarkable. Previous CT abd/pelvis and abdominal KUB exams performed at his various ER visits, dating from 2017 to present, have failed to show any evidence of obstruction or obstipation. In the last 3 months he has been seen in the ER 8 times. He continues to use multiple laxatives; Miralax, BID, Lactulose BID, Magnesia Citrate, Senna and Fiber supplementation, to help alleviate his rectal discomfort. He reports the sensation in his rectum feels like he has to have a BM, but then he feels he is unable to go so he takes the laxatives. He ishaving liquid stools with " a lot of gas." He has had some relief with use of topical anaplasia. He was referred to [facility] but has yet to see them. He is eating well, 2-3 meals daily, soups and vegetables. Denies heartburn, dysphagia, fatigue, nausea, vomiting, melena, hamatemesis, hematochezia, constipation, jaundice, fevers, chills, night sweats, weight loss , easy bruising, chest pain, shortness of breath, dysuria, hematuria, pyuria, joint pains, acholic stools, dark urine or systemic pruritis. Current Outpatient Medications Medication Sig amLodipine (NORVASC) 5 MG Oral Tab Take 5 mg by mouth DAILY. B Complex Vitamins (B-COMPLEX/B-12) Oral Tab Take by mouth DAILY. dibucaine (NUPERCAINAL) 1 % Apply externally Ointment Apply 4 times daily for rectal pain dibucaine (NUPERCAINAL) 1 % Rectal Ointment by Topical route TWICE DAILY. hydrocortisone (ANUSOL-HC) [address] 1 Suppository per rectum EVERY TWELVE HOURS. hydrocortisone (HYTONE) 2.5 % Apply externally Cream 1 Appl by Topical route THREE TIMES DAILY NEEDED (pain). lactulose (CEPHULAC) 10 GM/15ML Oral Solution Take 15 mL by mouth TWO TIMES DAILY NEEDED (constipation). lisinopril (PRINIVIL, ZESTRIL) 40 MG Oral Tab Take 1 Tab by mouth DAILY. metoprolol (LOPRESSOR) 100 MG Oral Tab TAKE 1 TABLET BY MOUTH TWICE DAILY (Patient taking differently: DAILY.) MULTIVITAMINS PO Take by mouth. Nitroglycerin (RECTIV) 0.4 % Rectal Ointment Place 1 Appl per rectum EVERY TWELVE HOURS NEEDED (anal pain). Probiotic Product (PROBIOTIC ADVANCED PO) Take by mouth DAILY. No current facility-administered medications for this visit. Allergies Allergen Reactions Aspirin Rectal Bleed REVIEW OF SYSTEMS: All remaining review of systems was negative except for as noted in the history of present illness/subjective. Objective PHYSICAL EXAMINATION: VITALS: BP (!) 154/84 | Pulse 72 | Temp 99.2 F (37.3 C) | Ht 5' 6" ( 1.676 m) | Wt 126 lb (57.2 kg) | BMI 20.34 kg/m Body mass index is 20.34 kg/m. GENERAL: alert, oriented, no acute distress. [...] RECTAL: exam deferred. 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 All of these cause gas. May use the Lactulose 1 tablespoon once to twice daily Keep the appointment with the [facility] department Follow up in 2 weeks If you have not already been screened for Hepatitis C we would be happy to do that for you today. Currently we recommend screening for hepatitis C virus (HCV ) infection in persons at high risk for infection, and to adults born between 1945 and 1965. Thank you for choosing the [facility] for your needs today! -Columba Tirado N.P. , Please call if you need to cancel or change your appt. time. Thank you for choosing [facility] for your health care needs, and for consulting with [facility] today. You may receive a survey [...] minutes to complete. Author: Columba Tirado NP 10/18/2019 14:31 documented in this encounter Plan of Treatment Date Type Specialty Care Team Description 11/01/2019 Office Visit Gastroenterology Columba Tirado NP 1 [facility] [place] [address] [phone] Health Maintenance Due Date Last Done Comments LUNG CANCER SCREENING 2001 LIPID DISORDER SCREENING 03/06/2020 03/06/2019, 10/01/2017, 08/12/2016, [...] Problems Progress Blood Pressure Blood Pressure HTN 154/84 No Larry, < 140/90 (hypertension) (10/18/2019 Kimberly, 1:28 PM EST) Note: Hypertension Care Plan Based [...] Educational Resources: National Heart, Lung, & Blood [place] http://nhlbi.nih.gov/hbp/index.html The DASH Diet Eating Plan http://www.nhlbi.nih.gov/health/health-topics/ topics/dash/ Academy of Nutrition & DIetetics http://eatright.org National Smoking Cessation Site http://smokefree.gov Blood Pressure < Blood Pressure 154/84 (10/18/2019 No Kimberly Juarez, 150/90 1:28 PM EST) Note: This is an individualized [...] filedocumented in this encounter Visit Diagnoses Diagnosis Proctalgia fugax Anal spasm documented in this encounter Insurance Payer Benefit Plan / Subscriber ID Effective Dates Phone Address Type Group AETNA MEDICARE AETNA MEDICARE xxxxxxxx 2019-Christian A[employer] ADVANTAGE [employer] [place] Adler([id number] ) MEDICAID [facility] xxxxxxxx Effective for Medicaid OR MEDICAID all dates Guarantor Name Account Type Relation to Date of Phone Billing Address Patient Charlie Personal/Famil 1945 [address] [place] [place] (Home) [address] [phone] [place], [place] (Work) [id number] documented as of this encounter Advance Directives Type Date Recorded 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 yes Order discussed with: Patient I discussed all options and patient/surrogate requested and agreed to: Full Code
--- NOTE | 2019-10-19 16:47 | ED ---
GI/ HPI - HPI Summary HPI Summary: Patient complains of rectal discomfort and sensation of "something moving up and down in his rectum". Patient has been seen here for same on several visits. Patient states he saw primary care and GI today for same. Has history of constipation. Denies constipation at this time. Denies blood in stool, trauma, fever, cough sores, sore throat, CP, SOB, N/3/D, abdominal pain, change in urine, change in BM. - History of Current Complaint Chief Complaint: EDRectalPain Time Seen by Provider: 10/19/19 16:43 Stated Complaint: NOT FEELING WELL PER PT Hx Obtained From: Patient Onset/Duration: Started Weeks Ago Timing: Intermittent Severity: Mild Current Severity: Mild Pain Intensity: 10 Location of Pain: Rectal Pain Characteristics: Cramping Associated Signs and Symptoms: Positive: Negative - Allergy/Home Medications Allergies/Adverse Reactions: Allergies Allergy/AdvReac Type Severity Reaction Status Date / Time aspirin Allergy Bleeding Verified 10/19/19 15:44 PMH/Surg Hx/FS Hx/Imm Hx Endocrine/Hematology History: Denies: Hx Diabetes Cardiovascular History: Reports: Hx Hypertension - ON DAILY MEDS Denies: Hx Hypercholesterolemia, Hx Pacemaker/ICD Respiratory History: Denies: Hx Asthma GI History: Reports: Other GI Disorders - Hemorrhoids History: Denies: Hx Renal Disease Musculoskeletal History: Reports: Hx Arthritis - HANDS, KNEES Sensory History: Reports: Hx Contacts or Glasses - WILL NOT BE WEARING DAY OF SURGERY Denies: Hx Legally Blind, Hx Deafness, Hx Hearing Aid Opthamlomology History: Reports: Hx Contacts or Glasses - WILL NOT BE WEARING DAY OF SURGERY Denies: Hx Legally Blind Neurological History: Denies: Hx Dementia Psychiatric History: Denies: Hx Panic Disorder, Hx Suicide Attempt, Hx of Violent Episodes Against Others - Surgical History Surgery Procedure, Year, and Place: pt eyelid cut with ontiveros 20 years ago so had surgery to stich cut together. Hemorrhoidectomy Hx Anesthesia Reactions: No Infectious Disease History: No Infectious Disease History: Denies: Traveled Outside the [place] in Last 30 Days - Family History Known Family History: Negative: Cardiac Disease, Hypertension, Diabetes, Respiratory Disease, Blood Disorder - Social History Alcohol Use: None Hx Substance Use: Yes Substance Use Type: Reports: Marijuana Substance Use Comment - Amount & Last Used: once in a while Hx Tobacco Use: Yes - previous cig smoking, now cigars Smoking Status (MU): Current Some Day Smoker Type: Cigars Amount Used/How Often: 2-3 CIGARS/DAY 35 YRS Have You Smoked in the Last Year: Yes Review of Systems Constitutional: Negative Eyes: Negative ENT: Negative Cardiovascular: Negative Respiratory: Negative Gastrointestinal: Other Genitourinary: Negative Musculoskeletal: Negative Skin: Negative Neurological: Negative Psychological: Normal All Other Systems Reviewed And Are Negative: Yes Physical Exam - Summary Physical Exam Summary: Normal rectal exam. Triage Information Reviewed: Yes Vital Signs On Initial Exam: Initial Vitals Temp Pulse Resp BP Pulse Ox 99.3 F 78 16 151/90 98 10/19/19 15:38 10/19/19 15:38 10/19/19 15:38 10/19/19 15:38 10/19/19 15:38 Vital Signs Reviewed: Yes Appearance: Positive: Well-Appearing Skin: Positive: Warm Head/Face: Positive: Normal Head/Face Inspection Eyes: Positive: Normal Neck: Positive: Supple Respiratory/Lung Sounds: Positive: Clear to Auscultation Cardiovascular: Positive: Normal Abdomen Description: Positive: Nontender Musculoskeletal: Positive: Normal Neurological: Positive: Normal Psychiatric: Positive: Normal AVPU Assessment: Alert - Aston Coma Scale Best Eye Response: 4 - Spontaneous Best Motor Response: 6 - Obeys Commands Best Verbal Response: 5 - Oriented Coma Scale Total: 15 Procedures - Sedation Patient Received Moderate/Deep Sedation with Procedure: No Diagnostics - Vital Signs Vital Signs Temp Pulse Resp BP Pulse Ox 10/19/19 15:38 99.3 F 78 16 151/90 98 - Laboratory Lab Statement: Any lab studies that have been ordered have been reviewed, and results considered in the medical decision making process. GIGU Course/Dx - Course Course Of Treatment: Patient complains of rectal discomfort and sensation of "something moving up and down in his rectum". Patient has been seen here for same symptoms on several visits this month. Patient states he saw primary care and GI today for same today. Has history of constipation. Denies constipation at this time. Denies blood in stool, trauma, fever, cough sores, sore throat, CP, SOB, N/V/D, abdominal pain, change in urine, change in BM. Vital signs within normal limits. Rectal exam unremarkable. CT of abdomen and pelvis on positive for right renal cyst. Pancreatic cyst. Mildly prominent adrenal glands bilaterally. 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 Degenerative disc disease at L4 to L5. Soft tissue density in the lingula suggesting subbed segmental atelectasis and fibrosis. Advised patient to follow up with GI. - Diagnoses Provider Diagnoses: Chronic rectal pain Discharge ED - Sign-Out/Discharge Documenting (check all that apply): Patient Departure - Discharge Plan Condition: Stable Disposition: HOME Patient Education Materials: Rectal Pain (ED) Referrals: Kimberly Juarez MD [Primary Care Provider] - Additional Instructions: Follow-up with primary care and the GI doctor you saw today. Take medication as prescribed by those providers. Return to the ED for any new or worsening symptoms. - Billing Disposition and Condition Condition: STABLE Disposition: Home
[2019-10-19 17:49] VITALS: BP 154/90
== END 2019-10-19 17:48 | disposition home or self-care (01) ==
LOC: ED 15:32
DX: K62.89 Other specified diseases of anus and rectum (principal); I10 Essential (primary) hypertension; F17.290 Nicotine dependence, other tobacco product, uncomplicated; Z79.899 Other long term (current) drug therapy; Z88.8 Allergy status to other drugs, medicaments and biological substances; K59.00 Constipation, unspecified; K64.4 Residual hemorrhoidal skin tags; Z88.6 Allergy status to analgesic agent
CPT/HCPCS: 99281

== ENCOUNTER 2019-10-19 20:14 | Emergency (ER) | payer MEDICARE, MEDICAID ==
--- NOTE | 2019-10-19 22:10 | ED ---
GI/ HPI - HPI Summary HPI Summary: Pt is a 74 y/o M presenting to the ED with a chief complaint of constipation. He states there is something big inside him that does not want to come out. He spent about 40 minutes in the bathroom prior to getting to his room in the ED. He denies other symptoms, including fever. He has been seen many times here for similar complaints, including earlier today. Recent CT of the abd/pelvis was negative. There is no h/o hematochezia. - History of Current Complaint Chief Complaint: EDAbdPain Time Seen by Provider: 10/19/19 21:30 Stated Complaint: ABDOMINAL PAIN PER PT Hx Obtained From: Patient Onset/Duration: Started Hours Ago, Still Present Timing: Constant, Lasting Hours Severity: Moderate Current Severity: Severe Pain Intensity: 10 Associated Signs and Symptoms: Positive: Constipation. Negative: Fever Aggravating Factor(s): Nothing Alleviating Factor(s): Nothing - Allergy/Home Medications Allergies/Adverse Reactions: Allergies Allergy/AdvReac Type Severity Reaction Status Date / Time aspirin Allergy Bleeding Verified 10/19/19 15:44 PMH/Surg Hx/FS Hx/Imm Hx Previously Healthy: Yes Endocrine/Hematology History: Denies: Hx Diabetes Cardiovascular History: Reports: Hx Hypertension - ON DAILY MEDS Denies: Hx Hypercholesterolemia, Hx Pacemaker/ICD Respiratory History: Denies: Hx Asthma GI History: Reports: Other GI Disorders - Hemorrhoids History: Denies: Hx Renal Disease Musculoskeletal History: Reports: Hx Arthritis - HANDS, KNEES Sensory History: Reports: Hx Contacts or Glasses - WILL NOT BE WEARING DAY OF SURGERY Denies: Hx Legally Blind, Hx Deafness, Hx Hearing Aid Opthamlomology History: Reports: Hx Contacts or Glasses - WILL NOT BE WEARING DAY OF SURGERY Denies: Hx Legally Blind Neurological History: Denies: Hx Dementia Psychiatric History: Denies: Hx Panic Disorder, Hx Suicide Attempt, Hx of Violent Episodes Against Others - Surgical History Surgery Procedure, Year, and Place: pt eyelid cut with ontiveros 20 years ago so had surgery to stich cut together. Hemorrhoidectomy Hx Anesthesia Reactions: No - Immunization History Date of Influenza Vaccine: 06/2019 Infectious Disease History: No Infectious Disease History: Denies: Traveled Outside the US in Last 30 Days - Family History Known Family History: Negative: Cardiac Disease, Hypertension, Diabetes, Respiratory Disease, Blood Disorder - Social History Alcohol Use: None Hx Substance Use: Yes Substance Use Type: Reports: Marijuana Substance Use Comment - Amount & Last Used: once in a while Hx Tobacco Use: Yes - previous cig smoking, now cigars Smoking Status (MU): Current Some Day Smoker Type: Cigars Amount Used/How Often: 2-3 CIGARS/DAY 35 YRS Have You Smoked in the Last Year: Yes Review of Systems Negative: Fever Positive: Other - constipation All Other Systems Reviewed And Are Negative: Yes Physical Exam - Summary Physical Exam Summary: Appearance: Well-appearing, Well-nourished, lying in bed comfortable Skin: Warm, dry, no obvious rash Eyes: sclera anicteric, no conjunctival pallor ENT: mucous membranes moist Neck: deferred Respiratory: No signs of respiratory distress Cardiovascular: Appears well perfused, pulses are nml Abdomen: deferred Musculoskeletal: Moving all 4 extremities without obvious discomfort Neurological: Awake and alert, mentation is normal, speech is fluent and appropriate Psychiatric: affect is normal, does not appear anxious or depressed Rectal: Nothing palpable in rectal vault. Small external hemorrhoids that are not thrombosed. Triage Information Reviewed: Yes Vital Signs On Initial Exam: Initial Vitals Temp Pulse Resp BP Pulse Ox 99.5 F 102 18 140/97 97 10/19/19 20:19 10/19/19 20:19 10/19/19 20:19 10/19/19 20:19 10/19/19 20:19 Vital Signs Reviewed: Yes Procedures - Sedation Patient Received Moderate/Deep Sedation with Procedure: No Diagnostics - Vital Signs Vital Signs Temp Pulse Resp BP Pulse Ox 10/19/19 20:19 99.5 F 102 18 140/97 97 - Laboratory Lab Statement: Any lab studies that have been ordered have been reviewed, and results considered in the medical decision making process. GIGU Course/Dx - Course Course Of Treatment: Pt is a 74 y/o M presenting to the ED with a chief complaint of constipation. He states there is something big inside him that does not want to come out. He spent about 40 minutes in the bathroom prior to getting to his room in the ED. He denies other symptoms, including fever. Physical exam is nml. Specifically on rectal exam, there is nothing palpable in the rectal vault. There are some small external hemorrhoids present that have not thrombosed. I suspect this patient suffers from chronic constipation, and has become overly concerned with his bowel movements to the point of near delusional thinking. Unfortunately there is nothing further I can do to help him here in the ED. He does have followup with a GI specialist (who he also saw today). - Diagnoses Provider Diagnoses: Constipation Discharge ED - Sign-Out/Discharge Documenting (check all that apply): Patient Departure - Discharge Plan Condition: Stable Disposition: HOME Patient Education Materials: Rectal Pain (ED) Print Language: CAMEROONIAN Referrals: Kimberly Juarez MD [Primary Care Provider] - Additional Instructions: There is nothing impacted in your rectum, either by our several exams today or on the xray tests done last week. I'm sorry but there is nothing more we can do for your problem here in the Emergency Room. Please continue to work with you regular doctors. - Billing Disposition and Condition Condition: STABLE Disposition: Home - Attestation Statements Document Initiated by Tim: Yes Documenting Scribe: Kaya Bryant Provider For Whom Tim is Documenting (Include Credential): Anthony Reynolds MD. Scribe Attestation: Kaya Johnson, stevieed for Anthony Reynolds MD. on 10/20/19 at 0544. Scribe Documentation Reviewed: Yes Provider Attestation: The documentation as recorded by the Kaya ahumada accurately reflects the service I personally performed and the decisions made by , Anthony Reynolds MD. Status of Scribe Document: Viewed
[2019-10-19 22:38] VITALS: BP 198/118
== END 2019-10-19 22:20 | disposition home or self-care (01) ==
LOC: ED 20:14
DX: K59.00 Constipation, unspecified (principal); I10 Essential (primary) hypertension; K64.4 Residual hemorrhoidal skin tags; Z88.6 Allergy status to analgesic agent; Z72.0 Tobacco use
CPT/HCPCS: 99283

== ENCOUNTER 2022-08-24 03:50 | Inpatient (IN) ==
[2022-08-24 05:02] LABS: ABS Eosinophils 0.1 10^3/ul (0-0.6); ABS Lymphocytes 1.1 10^3/ul (1.0-4.8); ABS Neutrophils 5.4 10^3/ul (1.5-7.7); Eosinophil % 1.2 %; Hematocrit 24 % (42-52); Hemoglobin 7.9 g/dL (14.0-18.0); Lymphocyte % 14.6 %; Mean Corpuscular HGB Conc 34 g/dL (31-36); Mean Corpuscular Hemoglobin 33 pg (27-31); Mean Corpuscular Volume 100 fL (80-94); Mean Platelet Volume 7.9 fL (7.4-10.4); Platelet Count 420 10^3/uL (150-450); Red Blood Count 2.38 10^6 /uL (4.18-5.48); Red Cell Distribution Width 14 % (10-15); White Blood Count 7.7 10^3/uL (3.5-10.8)
[2022-08-24 05:43] LABS: Albumin 3.3 g/dL (3.2-5.2); Albumin/Globulin Ratio 1.3 (1-3); Calcium 8.4 mg/dL (8.6-10.3); Globulin 2.6 g/dL (2-4); Potassium 3.6 mmol/L (3.5-5.0); Total Bilirubin 0.4 mg/dL (0.2-1.0); Total Protein 5.9 g/dL (6.4-8.9)
[2022-08-24] MEDS ORDERED: Iohexol 350 (CONTRAST) 500 ML MDV IV ONE (05:56)
[2022-08-24] MEDS ORDERED: Pantoprazole VIAL 40 MG VIAL IV ONE (09:18)
[2022-08-24] MEDS ORDERED: Piperacillin/Tazobac ADVAN 3.375 GM in NS 0.9% 100 ml BAG 100 ML IV ONE (09:18)
[2022-08-24 09:31] LABS: Urine Appearance Clear; Urine Bacteria Absent (Absent); Urine Bilirubin Negative (Negative); Urine Blood 1+ (Negative); Urine Color Yellow; Urine Glucose Negative (Negative); Urine Ketones 1+ (Negative); Urine Nitrite Negative (Negative); Urine Protein Negative (Negative); Urine Red Blood Cell Trace(0-2/hpf) (Absent); Urine Specific Gravity > 1.060 (1.002-1.030); Urine Urobilinogen Negative (Negative); Urine White Blood Cell Absent (Absent)
[2022-08-24] MEDS ORDERED: Al Hydrox/Mg Hydrox/Simet LIQ 30 ML UDC PO PRN (10:23)
[2022-08-24 10:57] LABS: C Reactive Protein 115.19 mg/L (<8.01)
[2022-08-24] MEDS: Pantoprazole 80 mg in NS BAG 80 MG/250 ML BAG IV SCH (11:12)
[2022-08-24 11:27] LABS: Ferritin 179.1 ng/mL (24-336)
[2022-08-24 11:30] LABS: Folate 11.55 ng/mL (5.90-24.80)
[2022-08-24] MEDS ORDERED: Ferric Gluconate IV 125 MG in NS 0.9% 100 ml BAG 100 ML IVPB ONE (11:49)
[2022-08-24 12:19] LABS: ABS Lymphocytes 1.2 10^3/ul (1.0-4.8); ABS Monocytes 0.6 10^3/ul (0-0.8); ABS Neutrophils 5.5 10^3/ul (1.5-7.7); Eosinophil % 0.6 %; Hematocrit 23 % (42-52); Lymphocyte % 16.3 %; Mean Corpuscular HGB Conc 34 g/dL (31-36); Mean Corpuscular Hemoglobin 34 pg (27-31); Mean Corpuscular Volume 100 fL (80-94); Mean Platelet Volume 8.4 fL (7.4-10.4); Platelet Count 429 10^3/uL (150-450); Red Blood Count 2.33 10^6 /uL (4.18-5.48); Red Cell Distribution Width 15 % (10-15); White Blood Count 7.4 10^3/uL (3.5-10.8)
[2022-08-24] MEDS ORDERED: Lactated Ringers 1000 ml BAG 1,000 ML IV SCH (14:00)
[2022-08-24] MEDS: cefTRIAXone 1 gm/50 mL D5W 1 GM/50 ML BAG IV SCH (17:19)
[2022-08-24] MEDS: metroNIDAZOLE IV 500 MG/100ML 500 MG/100 ML BAG IVPB SCH (18:30)
[2022-08-24] MEDS ORDERED: Morphine 2 MG/ML SYRINGE IV ONE (21:03)
[2022-08-25] MEDS: Pantoprazole 80 mg in NS BAG 80 MG/250 ML BAG IV SCH ×2 (01:16→13:44)
[2022-08-25] MEDS: metroNIDAZOLE IV 500 MG/100ML 500 MG/100 ML BAG IVPB SCH ×4 (01:19→21:39)
[2022-08-25 06:15] LABS: Hematocrit 22 % (42-52); Hemoglobin 7.4 g/dL (14.0-18.0); Mean Corpuscular HGB Conc 33 g/dL (31-36); Mean Corpuscular Hemoglobin 33 pg (27-31); Mean Corpuscular Volume 100 fL (80-94); Mean Platelet Volume 8.2 fL (7.4-10.4); Platelet Count 427 10^3/uL (150-450); Red Blood Count 2.24 10^6 /uL (4.18-5.48); Red Cell Distribution Width 15 % (10-15); White Blood Count 8.2 10^3/uL (3.5-10.8)
[2022-08-25] MEDS ORDERED: Ferric Gluconate IV 125 MG in NS 0.9% 100 ml BAG 100 ML IVPB ONE (09:00)
[2022-08-25] MEDS ORDERED: Morphine 2 MG/ML SYRINGE IV ONE (10:05)
[2022-08-25] MEDS ORDERED: Midazolam 5 mg/5 ml VIAL 1 mg/ml 5 ml VIAL (5 mg) ONE (10:27)
[2022-08-25] MEDS ORDERED: fentaNYL 100 mcg/2 ml 50 MCG/ML VIAL ONE (10:29)
[2022-08-25] MEDS ORDERED: Magnesium CITRATE LIQ 300 ML BTL PO PRN (11:29)
[2022-08-25] MEDS ORDERED: Polyethylene Glycol 3350 BTL 238 GM BTL PO SCH (12:00)
[2022-08-25] MEDS: Polyethylene Glycol 3350 17 GM PACKET PO SCH ×2 (14:46→21:22)
[2022-08-25] MEDS: Magnesium Hydroxide LIQ 30 ML UDC PO PRN (14:48)
[2022-08-25] MEDS: cefTRIAXone 1 gm/50 mL D5W 1 GM/50 ML BAG IV SCH (17:44)
[2022-08-25] MEDS: Hemorrhoidal OINT 1 TUBE PR PRN (17:51)
[2022-08-26] MEDS: metroNIDAZOLE IV 500 MG/100ML 500 MG/100 ML BAG IVPB SCH ×2 (05:21→14:30)
[2022-08-26 07:21] LABS: Hematocrit 23 % (42-52); Hemoglobin 7.7 g/dL (14.0-18.0); Mean Corpuscular HGB Conc 34 g/dL (31-36); Mean Corpuscular Hemoglobin 33 pg (27-31); Mean Corpuscular Volume 99 fL (80-94); Platelet Count 419 10^3/uL (150-450); Red Blood Count 2.29 10^6 /uL (4.18-5.48); Red Cell Distribution Width 15 % (10-15); White Blood Count 7.5 10^3/uL (3.5-10.8)
[2022-08-26 07:24] LABS: Calcium 8.1 mg/dL (8.6-10.3); Magnesium 1.9 mg/dL (1.9-2.7); Potassium 3.9 mmol/L (3.5-5.0); eGFR CKD-EPI 81.9 (>60)
[2022-08-26] MEDS: Polyethylene Glycol 3350 17 GM PACKET PO SCH ×2 (07:56→22:17)
[2022-08-26] MEDS: Hemorrhoidal OINT 1 TUBE PR PRN (14:30)
[2022-08-26] MEDS: cefTRIAXone 1 gm/50 mL D5W 1 GM/50 ML BAG IV SCH (16:33)
[2022-08-26] MEDS ORDERED: NS 0.9% 1000 ml BAG 1,000 ML IV SCH (17:15)
[2022-08-26] MEDS: Morphine 2 MG/ML SYRINGE IV PRN ×2 (17:19→21:49)
[2022-08-27] MEDS: metroNIDAZOLE IV 500 MG/100ML 500 MG/100 ML BAG IVPB SCH ×4 (00:17→21:48)
[2022-08-27] MEDS: Magnesium Hydroxide LIQ 30 ML UDC PO PRN (03:27)
[2022-08-27] MEDS ORDERED: Ondansetron ODT 4 mg TAB 4 MG TAB SL ONE (06:04)
[2022-08-27 06:16] LABS: ABS Eosinophils 0.1 10^3/ul (0-0.6); ABS Lymphocytes 1.4 10^3/ul (1.0-4.8); ABS Monocytes 0.9 10^3/ul (0-0.8); ABS Neutrophils 4.8 10^3/ul (1.5-7.7); Eosinophil % 1.2 %; Hematocrit 22 % (42-52); Hemoglobin 7.8 g/dL (14.0-18.0); Lymphocyte % 19.1 %; Mean Corpuscular HGB Conc 35 g/dL (31-36); Mean Corpuscular Hemoglobin 35 pg (27-31); Mean Corpuscular Volume 99 fL (80-94); Mean Platelet Volume 8.1 fL (7.4-10.4); Platelet Count 432 10^3/uL (150-450); Red Blood Count 2.23 10^6 /uL (4.18-5.48); Red Cell Distribution Width 15 % (10-15); White Blood Count 7.1 10^3/uL (3.5-10.8)
[2022-08-27 08:15] LABS: Calcium 8.1 mg/dL (8.6-10.3); Potassium 3.8 mmol/L (3.5-5.0)
[2022-08-27 08:21] LABS: eGFR CKD-EPI 81.9 (>60)
[2022-08-27] MEDS: Polyethylene Glycol 3350 17 GM PACKET PO SCH ×2 (09:13→20:36)
[2022-08-27] MEDS: Ferric Gluconate IV 250 MG in NS 0.9% 250 ml 200 ML IVPB SCH (11:30)
[2022-08-27] MEDS: Morphine 2 MG/ML SYRINGE IV PRN ×2 (13:57→20:35)
[2022-08-27 14:57] LABS: Corrected Retic Count 1.3 % (0.5-1.5); Hematocrit for Retic CNT 23 % (42-52); RBC Retic Count 2.29 10^6/uL (4.18-5.48)
[2022-08-27] MEDS: cefTRIAXone 1 gm/50 mL D5W 1 GM/50 ML BAG IV SCH (17:06)
[2022-08-27 19:24] LABS: C Reactive Protein 88.68 mg/L (<8.01)
[2022-08-28] MEDS: Hemorrhoidal OINT 1 TUBE PR PRN (03:15)
[2022-08-28] MEDS: Morphine 2 MG/ML SYRINGE IV PRN ×2 (03:19→09:40)
[2022-08-28] MEDS ORDERED: Ondansetron 4 mg VIAL 2 MG/ML 2 ml VIAL IV PRN (03:30)
[2022-08-28] MEDS ORDERED: Ondansetron 4 mg VIAL 2 MG/ML 2 ml VIAL ONE (03:51)
[2022-08-28] MEDS: metroNIDAZOLE IV 500 MG/100ML 500 MG/100 ML BAG IVPB SCH ×3 (05:38→22:00)
[2022-08-28 06:07] LABS: ABS Monocytes 0.7 10^3/ul (0-0.8); ABS Neutrophils 6.5 10^3/ul (1.5-7.7); Eosinophil % 0.6 %; Hematocrit 24 % (42-52); Hemoglobin 7.8 g/dL (14.0-18.0); Lymphocyte % 11.7 %; Mean Corpuscular HGB Conc 33 g/dL (31-36); Mean Corpuscular Hemoglobin 33 pg (27-31); Mean Corpuscular Volume 101 fL (80-94); Mean Platelet Volume 8.4 fL (7.4-10.4); Platelet Count 462 10^3/uL (150-450); Red Blood Count 2.36 10^6 /uL (4.18-5.48); Red Cell Distribution Width 15 % (10-15); White Blood Count 8.2 10^3/uL (3.5-10.8)
[2022-08-28 06:17] LABS: Calcium 8.2 mg/dL (8.6-10.3); Potassium 4.2 mmol/L (3.5-5.0)
[2022-08-28] MEDS: Polyethylene Glycol 3350 17 GM PACKET PO SCH (09:40)
[2022-08-28] MEDS: Ferric Gluconate IV 250 MG in NS 0.9% 250 ml 200 ML IVPB SCH (12:34)
[2022-08-28] MEDS ORDERED: Midazolam 5 mg/5 ml VIAL 1 mg/ml 5 ml VIAL (5 mg) ONE (15:45)
[2022-08-28] MEDS ORDERED: fentaNYL 100 mcg/2 ml 50 MCG/ML VIAL ONE (15:46)
[2022-08-28] MEDS: cefTRIAXone 1 gm/50 mL D5W 1 GM/50 ML BAG IV SCH (18:51)
[2022-08-29] MEDS: Morphine 2 MG/ML SYRINGE IV PRN ×2 (00:35→06:26)
[2022-08-29] MEDS: metroNIDAZOLE IV 500 MG/100ML 500 MG/100 ML BAG IVPB SCH ×2 (04:53→13:12)
[2022-08-29] MEDS: Hemorrhoidal OINT 1 TUBE PR PRN (04:53)
[2022-08-29 06:35] LABS: ABS Basophils 0.1 10^3/ul (0-0.2); ABS Eosinophils 0.1 10^3/ul (0-0.6); ABS Lymphocytes 1.5 10^3/ul (1.0-4.8); ABS Monocytes 0.9 10^3/ul (0-0.8); ABS Neutrophils 5.4 10^3/ul (1.5-7.7); Eosinophil % 0.9 %; Hematocrit 22 % (42-52); Hemoglobin 7.5 g/dL (14.0-18.0); Lymphocyte % 18.4 %; Mean Corpuscular HGB Conc 34 g/dL (31-36); Mean Corpuscular Hemoglobin 34 pg (27-31); Mean Corpuscular Volume 101 fL (80-94); Mean Platelet Volume 8.7 fL (7.4-10.4); Platelet Count 469 10^3/uL (150-450); Red Blood Count 2.23 10^6 /uL (4.18-5.48); Red Cell Distribution Width 15 % (10-15); White Blood Count 7.9 10^3/uL (3.5-10.8)
[2022-08-29 06:42] LABS: Calcium 7.9 mg/dL (8.6-10.3); Magnesium 1.8 mg/dL (1.9-2.7); Potassium 3.9 mmol/L (3.5-5.0); eGFR CKD-EPI 78.9 (>60)
[2022-08-29] MEDS ORDERED: Magnesium Sulfate IV 1GM/100ML 1 GM/100 ML BAG IV ONE (11:08)
[2022-08-29 11:10] VITALS: BP 134/79
[2022-08-29] MEDS: Ferric Gluconate IV 250 MG in NS 0.9% 250 ml 200 ML IVPB SCH (14:00)
== END 2022-08-29 16:43 | disposition home or self-care (01) | DRG 378 ==
LOC: EDHOLD 03:50 → ED 03:50 → SUATTDRO 10:23 → SSU 15:37
PROVIDERS: ADMIT Internal Medicine; ATTEND Internal Medicine